=== PATIENT | male | born 1975 | race Hispanic/Latino ===

== ENCOUNTER 2016-06-11 00:05 | Emergency (ER) | payer OTHER ==
[2016-06-11] MEDS ORDERED: Tetracaine 0.5% Ophth 2 ML BOTTLE OD ONE (00:36)
[2016-06-11] MEDS ORDERED: Fluorescein 1 mg Ophthalmic Strip OD ONE (00:36)
[2016-06-11] MEDS ORDERED: Tetracaine 0.5% Ophth (OR ONLY) ONE (00:44)
[2016-06-11] MEDS ORDERED: Fluorescein 1 mg Ophthalmic Strip ONE ×2 (00:44→00:45)
--- NOTE | 2016-06-11 01:51 | C.PDOC ---
History Of Present Illness 40 year male presents to the ED with complaints of his right eye burning beginning 14 hours prior. Patient states his cell phone case cracked while texting and glass shards went onto his fingers and he rubbed his eyes. Patient denies any nausea, vomiting, or any other complaints at this time. Time Seen by Provider: 06/11/16 00:18 Chief Complaint (Nursing): Eye Problem History Per: Patient History/Exam Limitations: no limitations Onset/Duration Of Symptoms: Hrs Current Symptoms Are (Timing): Still Present Quality: Burning Past Medical History Vital Signs: Last Vital Signs Temp 98 F 06/11/16 01:58 Pulse 90 06/11/16 01:58 Resp 20 06/11/16 01:58 BP 109/69 06/11/16 01:58 Pulse Ox 100 06/11/16 04:55 - Medical History PMH: Diabetes - [facility] Procedures OTHER MISC PROCEDURE (12/21/99) TETANUS TOXOID ADMINIST (12/16/06) Family History: States: Unknown Family Hx - Social History Hx Tobacco Use: Yes Hx Alcohol Use: Yes Hx Substance Use: Yes - Immunization History Hx Tetanus Toxoid Vaccination: No Hx Influenza Vaccination: No Hx Pneumococcal Vaccination: No Review Of Systems Constitutional: Negative for: Fever, Chills, Sweats Eyes: Positive for: Pain. Negative for: Vision Change Cardiovascular: Negative for: Chest Pain Respiratory: Negative for: Cough, Shortness of Breath Gastrointestinal: Negative for: Nausea, Vomiting, Abdominal Pain, Diarrhea Neurological: Negative for: Weakness, Numbness, Dizziness Physical Exam - Physical Exam Appears: Non-toxic, No Acute Distress Skin: Warm, Dry Head: Atraumatic, Normacephalic Eye(s): bilateral: PERRL, EOMI, Other (Fluroescence exam negative for abrasions. Mild conjunctival injection to the right eye) Oral Mucosa: Moist Neck: Normal ROM, Supple Extremity: Normal ROM, No Tenderness Neurological/Psych: Oriented x3, Normal Speech, Normal Cranial Nerves, Normal Motor, Normal Sensation Gait: Steady ED Course And Treatment O2 Sat by Pulse Oximetry: 100 (on RA) Pulse Ox Interpretation: Normal Medical Decision Making Medical Decision Making: No foreign body seen on lid eversion of the eyes and fluoroscein test was negative for uptake. This is most likely eye irritation from rubbing the eyes. Disposition - Disposition Referrals: Ambrose Ashley MD [Staff Provider] - Disposition: HOME/ ROUTINE Disposition Time: 01:50 Condition: GOOD Additional Instructions: Follow up with the medical doctor within 1-2 days. Return if worsened. Prescriptions: Moxifloxacin HCl [Vigamox 3 ml] 1 drop OD TID #1 dimple Instructions: Corneal Abrasion (ED) - Clinical Impression Clinical Impression: Pain in eye, Eye irritation - Scribe Statement The provider has reviewed the documentation as recorded by the Scribluis Albert All medical record entries made by the Peteibluis were at my direction and personally dictated by me. I have reviewed the chart and agree that the record accurately reflects my personal performance of the history, physical exam, medical decision making, and the department course for this patient. I have also personally directed, reviewed, and agree with the discharge instructions and disposition.
[2016-06-11 01:59] VITALS: BP 109/69; PULSE 90; RESP 20; TEMP 98
[2016-06-11 04:55] VITALS: O2SAT 100
== END 2016-06-11 01:59 | disposition home or self-care (01) ==
LOC: C.ER 00:05
DX: H57.8 Other specified disorders of eye and adnexa (principal); H57.11 Ocular pain, right eye

== ENCOUNTER 2016-06-22 04:48 | Emergency (ER) | payer OTHER ==
[2016-06-22 05:21] VITALS: BMI 33.5
[2016-06-22 05:28] VITALS: TEMP 98.2
[2016-06-22] MEDS ORDERED: DiphenhydrAMINE 50 mg/ml Inj IVP STA (05:42)
[2016-06-22] MEDS ORDERED: Sodium Chloride 0.9% 100 ML ONE (05:51)
[2016-06-22] MEDS ORDERED: DiphenhydrAMINE 50 mg/ml Inj ONE (05:51)
--- NOTE | 2016-06-22 06:23 | C.PDOC ---
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 Pt was seen at [facility] on 06/20 and had a full workup incl Head CT with normal results. Pt was dc home on meclizine but said Rx is not ready till today for pick so he has not take anything for headache and dizziness. Pt denies nausea, vomiting, neck pain, fever , recent travel or sick cotacts Time Seen by Provider: 06/22/16 05:25 Chief Complaint (Nursing): Headache History Per: Patient History/Exam Limitations: no limitations Current Symptoms Are (Timing): Still Present Severity: Moderate Quality: Tightness Preceeding Symptoms: None Associated Symptoms: Photophobia Recent travel outside of the [place]: No Past Medical History Vital Signs: Last Vital Signs Temp 98.2 F 06/22/16 05:23 Pulse 84 06/22/16 05:23 Resp 20 06/22/16 05:23 BP 124/79 06/22/16 05:23 Pulse Ox 97 06/22/16 06:34 - Medical History PMH: Diabetes (type II) Surgical History: No Surg Hx - [facility] Procedures OTHER MISC PROCEDURE (12/21/99) TETANUS TOXOID ADMINIST (12/16/06) Family History: States: Unknown Family Hx - Social History Hx Tobacco Use: Yes Hx Alcohol Use: Yes Hx Substance Use: Yes - Immunization History Hx Tetanus Toxoid Vaccination: No Hx Influenza Vaccination: No Hx Pneumococcal Vaccination: No Review Of Systems Constitutional: Negative for: Fever Eyes: Negative for: Vision Change ENT: Negative for: Nose Congestion Gastrointestinal: Negative for: Vomiting Musculoskeletal: Negative for: Neck Pain Neurological: Positive for: Headache, Dizziness. Negative for: Weakness, Numbness Physical Exam - Physical Exam Appears: Well, No Acute Distress Head: Atraumatic Eye(s): bilateral: Normal Inspection, PERRL, EOMI Throat: Normal, No Erythema Neck: Normal, No Midline Cervical Tenderness, Supple Cardiovascular: Rhythm Regular, No Murmur Respiratory: Normal Breath Sounds, No Rhonchi, No Wheezing Gastrointestinal/Abdominal: Normal Exam Extremity: Normal ROM Extremity: Bilateral: Atraumatic Neurological/Psych: Oriented x3, Normal Speech, Normal Motor, Normal Sensation Gait: Steady ED Course And Treatment O2 Sat by Pulse Oximetry: 97 Disposition - Disposition Disposition Time: 06:49 Condition: STABLE Additional Instructions: Continue prescribed meds Follow up in clinic Return to ER if worse Return to ER if worse Prescriptions: Ibuprofen [Motrin] 600 mg PO Q6H #30 tab Forms: Work Excuse - Clinical Impression Clinical Impression: Headache, Vertigo
[2016-06-22 07:15] VITALS: BP 106/78; PULSE 72; RESP 18; O2SAT 98
== END 2016-06-22 07:05 | disposition home or self-care (01) ==
LOC: C.ER 04:48
DX: R51 Headache (principal); R42 Dizziness and giddiness
CPT/HCPCS: 96374; 96375; 99284; J1200; J1885; J2765

== ENCOUNTER 2016-06-30 15:22 | Emergency (ER) | payer OTHER ==
[2016-06-30 15:22] VITALS: BMI 33.5
[2016-06-30 15:32] VITALS: RESP 18; O2SAT 97
[2016-06-30] MEDS ORDERED: Sodium Chloride 0.9% 500 ML IV ONE ×2 (15:56→16:02)
--- NOTE | 2016-06-30 15:56 | C.PDOC ---
History Of Present Illness 40 year old patient, with a past medical history of diabetes, presents to the ED complaining of intermittent headache for the past 4 weeks. Patient states the pain is throbbing, frontal and non-radiating. He has an associated symptom of occasional dizziness. Patient was seen here and at [facility] recently. She reports he finished her Meclizine, but the headache continued. Patient denies fever, vision change, numbness, or weakness. Time Seen by Provider: 06/30/16 15:56 Chief Complaint (Nursing): Headache History Per: Patient History/Exam Limitations: no limitations Onset/Duration Of Symptoms: Intermittent Episodes (4 weeks) Current Symptoms Are (Timing): Still Present Severity: Mild Pain Scale Rating Of: 3 Quality: "Pain", Other (throbbing) Preceeding Symptoms: None Associated Symptoms: Other (dizziness) Recent travel outside of the [place]: No Past Medical History Reviewed: Historical Data, Nursing Documentation, Vital Signs Vital Signs: Last Vital Signs Temp 98.2 F 06/30/16 17:47 Pulse 71 06/30/16 17:47 Resp 18 06/30/16 17:47 BP 124/72 06/30/16 17:47 Pulse Ox 97 06/30/16 20:43 - Medical History PMH: Diabetes (type II) - [facility] Procedures OTHER MISC PROCEDURE (12/21/99) TETANUS TOXOID ADMINIST (12/16/06) Family History: States: Unknown Family Hx - Social History Hx Tobacco Use: Yes Hx Alcohol Use: Yes Hx Substance Use: Yes (marijuana use, last use 06/19/2016) - Immunization History Hx Tetanus Toxoid Vaccination: No Hx Influenza Vaccination: No Hx Pneumococcal Vaccination: No Review Of Systems Except As Marked, All Systems Reviewed And Found Negative. Constitutional: Negative for: Fever Eyes: Negative for: Vision Change Neurological: Positive for: Headache, Dizziness. Negative for: Weakness, Numbness Physical Exam - Physical Exam Appears: Non-toxic, No Acute Distress Skin: Warm, Dry Head: Atraumatic, Normacephalic Eye(s): bilateral: Normal Inspection, EOMI Ear(s): Bilateral: Normal Nose: Normal Oral Mucosa: Moist Throat: Normal Neck: Normal ROM, Supple Chest: Symmetrical Cardiovascular: Rhythm Regular Respiratory: No Accessory Muscle Use Back: Normal Inspection, No CVA Tenderness, No Vertebral Tenderness Extremity: Normal ROM Neurological/Psych: Oriented x3, Normal Speech, Normal Cognition, Normal Cranial Nerves, No Cerebellar Signs, Normal Motor, Normal Sensation Gait: Steady ED Course And Treatment O2 Sat by Pulse Oximetry: 97 (room air) Pulse Ox Interpretation: Normal Medical Decision Making Medical Decision Making: Impression: 40 y/o male with intermittent headaches Plan: * Reglan * IV fluids * Toradol * Reassess and disposition Prior records reviewed patient was seen multiple times in ED most recent 06/22 for headache and dizziness,treated and discharged. Patient was seen at [facility] on 06/20 patient complete workup including labs and Head CT with normal results. Patient treated in ED with IV fluids, Toradol and Reglan. Upon re-evaluation patient is resting comfortably in no acute distress. Patient reports improvement of symptoms. Patient given follow up instructions for the clinic. Instructed to return to ER if symptoms worsen or new symptoms arise. Disposition Counseled Patient/Family Regarding: Need For Followup, Rx Given - Disposition Referrals: [facility] [Outside] [facility] [Outside] Disposition: HOME/ ROUTINE Disposition Time: 17:15 Condition: IMPROVED Additional Instructions: Follow up with the clinic in 2-5 days for further evaluation. Take medications as prescribed. Return to the emergency department at any time if symptoms persist or worsen. You may call private duty aide service for any assistance [phone]. 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 - Scribe Statement The provider has reviewed the documentation as recorded by the Scribe Lacey Razo All medical record entries made by the Scribe were at my direction and personally dictated by me. I have reviewed the chart and agree that the record accurately reflects my personal performance of the history, physical exam, medical decision making, and the department course for this patient. I have also personally directed, reviewed, and agree with the discharge instructions and disposition.
[2016-06-30 17:53] VITALS: BP 124/72; PULSE 71; TEMP 98.2
== END 2016-06-30 17:54 | disposition home or self-care (01) ==
LOC: C.ER 15:22
DX: G43.909 Migraine, unspecified, not intractable, without status migrainosus (principal)
CPT/HCPCS: 96374; 96375; 99284; J1885; J2765; J7040

== ENCOUNTER 2016-07-28 14:30 | Emergency (ER) | payer OTHER ==
[2016-07-28 14:30] VITALS: BMI 33.5
[2016-07-28 14:50] VITALS: RESP 20
--- NOTE | 2016-07-28 15:33 | C.PDOC ---
History Of Present Illness 41 y/o male presents to the ED with complains of productive cough and SOB x2 days. 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 Pt denies headache, vomiting, fever, chills, chest pain, or any other complaints. No other drug use. Cigarette smoker. Time Seen by Provider: 07/28/16 14:34 Chief Complaint (Nursing): Substance Abuse History Per: Patient History/Exam Limitations: no limitations Suicide/Self Injury Attempted (Context): None Modifying Factor(s): Marijuana Severity: Mild Involuntary Hold By: None Recent travel outside of the [place]: No Past Medical History Reviewed: Historical Data, Nursing Documentation, Vital Signs Vital Signs: Last Vital Signs Temp 97.8 F 07/28/16 14:46 Pulse 101 H 07/28/16 14:46 Resp 20 07/28/16 14:46 BP 116/70 07/28/16 14:46 Pulse Ox 93 L 07/28/16 16:19 - Medical History PMH: Diabetes (type II) - [facility] Procedures OTHER MISC PROCEDURE (12/21/99) TETANUS TOXOID ADMINIST (12/16/06) Family History: States: Unknown Family Hx - Social History Hx Tobacco Use: Yes Hx Alcohol Use: Yes Hx Substance Use: Yes (marijuana use, last use 06/19/2016) - Immunization History Hx Tetanus Toxoid Vaccination: No Hx Influenza Vaccination: No Hx Pneumococcal Vaccination: No Review Of Systems Except As Marked, All Systems Reviewed And Found Negative. Constitutional: Negative for: Fever Respiratory: Positive for: Cough, Shortness of Breath Gastrointestinal: Negative for: Nausea, Vomiting Neurological: Positive for: Other (syncope). Negative for: Headache Physical Exam - Physical Exam Appears: Non-toxic, No Acute Distress Skin: Warm, Dry, No Rash Head: Atraumatic, Normacephalic Neck: Normal ROM, Midline Cervical Tenderness, No Paracervical Tenderness Chest: Symmetrical Cardiovascular: Rhythm Regular, No Murmur Respiratory: No Rales, No Rhonchi, Wheezing (diffuse) Gastrointestinal/Abdominal: Soft, No Tenderness Extremity: Bilateral: Atraumatic Neurological/Psych: Oriented x3, Normal Speech ED Course And Treatment - Laboratory Results Result Diagrams: 07/28/16 16:10 07/28/16 16:10 ECG: Interpreted By Me, Viewed By Me ECG Rhythm: Sinus Rhythm Interpretation Of ECG: normal axis, no acute ischemia Rate From EC (BPM) O2 Sat by Pulse Oximetry: 93 (room air) Pulse Ox Interpretation: Normal Medical Decision Making Medical Decision Makin pt sleeping no distress. upon waking reports feeling better. on exam wheezing significantly improved. disc w pt results, plan for rx, rtr. HISTORY: sob cough COMPARISON: No prior. FINDINGS: LUNGS: No active pulmonary disease. PLEURA: No significant pleural effusion identified, no pneumothorax apparent. CARDIOVASCULAR: Normal. OSSEOUS STRUCTURES: No significant abnormalities. VISUALIZED UPPER ABDOMEN: Normal. OTHER FINDINGS: None. IMPRESSION: No active disease. Disposition - Disposition Disposition: HOME/ ROUTINE Disposition Time: 17:54 Condition: IMPROVED - Clinical Impression Clinical Impression: Drug abuse, Bronchitis - Scribe Statement The provider has reviewed the documentation as recorded by the Earl Gallagher Provider Attestation: All medical record entries made by the Earl were at my direction and personally dictated by me. I have reviewed the chart and agree that the record accurately reflects my personal performance of the history, physical exam, medical decision making, and the department course for this patient. I have also personally directed, reviewed, and agree with the discharge instructions and disposition.
--- NOTE | 2016-07-28 15:56 | CT ---
PROCEDURE: CT HEAD WITHOUT CONTRAST. HISTORY: fall pain COMPARISON: 12/28/2014 TECHNIQUE: Axial computed tomography images were obtained through the head/brain without intravenous contrast. Radiation dose: Total exam DLP = 948.16 mGy-cm. This CT exam was performed using one or more of the following dose reduction techniques: Automated exposure control, adjustment of the mA and/or kV according to patient size, and/or use of iterative reconstruction technique. FINDINGS: HEMORRHAGE: No intracranial hemorrhage. BRAIN: No mass effect or edema. No atrophy or chronic microvascular ischemic changes. VENTRICLES: Unremarkable. No hydrocephalus. CALVARIUM: Unremarkable. PARANASAL SINUSES: Unremarkable as visualized. No significant inflammatory changes. MASTOID AIR CELLS: Unremarkable as visualized. No inflammatory changes. OTHER FINDINGS: None. IMPRESSION: No intracranial hemorrhage. Unremarkable CT head examination. .
--- NOTE | 2016-07-28 16:00 | CT ---
PROCEDURE: CT Cervical Spine without contrast HISTORY: <fall pain> COMPARISON: None available. TECHNIQUE: Axial computed tomography images were obtained of the cervical spine without the use of intravenous contrast. Coronal and sagittal reformatted images were created and reviewed. Radiation dose: Total exam DLP = 535.37 mGy-cm. This CT exam was performed using one or more of the following dose reduction techniques: Automated exposure control, adjustment of the mA and/or kV according to patient size, and/or use of iterative reconstruction technique. FINDINGS: VERTEBRAE: The vertebral bodies are maintained in height. The transverse processes and posterior elements appear intact. The atlantoaxial articulation and odontoid process are intact. Normal vertebral alignment is maintained. There is mild straightening of the normal lordotic curvature of the cervical spine indicating possible muscular spasm. DISCS/SPINAL CANAL/NEURAL FORAMINA: Degenerative disc disease is noted at C5-6 with mild disc space narrowing anterior and posterior osteophytes. The remaining intervertebral disc spaces are maintained in height. PARASPINAL SOFT TISSUES: Unremarkable. OTHER FINDINGS: None. IMPRESSION: No fracture/ dislocation. Possible muscular spasm. Degenerative disc disease at C5-6.
[2016-07-28] MEDS ORDERED: Albuterol-Ipratrop 3 mg / 0.5 (3 ml) UD ONE (16:02)
[2016-07-28] MEDS: Albuterol-Ipratrop 3 mg / 0.5 (3 ml) UD IH SCH ×2 (16:14→16:16)
[2016-07-28 16:21] LABS: BASO # 0.1 K/uL (0.0-0.2); BASO % 0.4 % (0.0-2.0); EOS % 0.3 % (0.0-4.0); HEMATOCRIT 44.9 % (35.0-51.0); LYMPH # 1.5 K/uL (1.0-4.3); LYMPH % 12.2 % (20.0-40.0); MEAN CELL VOLUME 94.4 fL (80.0-94.0); MEAN CORPUSCULAR HEMOGLOBIN 32.8 pg (27.0-31.0); MEAN CORPUSCULAR HGB CONC 34.7 g/dL (33.0-37.0); MONO # 1.2 K/uL (0.0-0.8); MONO % 9.6 % (0.0-10.0); RED CELL DISTRIBUTION WIDTH 12.9 % (11.5-14.5); WHITE BLOOD COUNT 12.6 K/uL (4.8-10.8)
[2016-07-28] MEDS ORDERED: MethylPREDNISolone 40 mg Vial ONE (16:26)
[2016-07-28 16:29] LABS: CHLORIDE 97 mmol/L (98-107)
[2016-07-28 16:30] LABS: POTASSIUM 3.6 mmol/L (3.6-5.2); SODIUM 137 mmol/L (132-148)
[2016-07-28 16:32] LABS: ALB/GLOB RATIO 1.3 (1.0-2.1); ALKALINE PHOSPHATASE 78 U/L (38-126); ALT/SGPT 22 U/L (21-72); AST/SGOT 21 U/L (17-59); BLOOD UREA NITROGEN 7 mg/dL (9-20); CARBON DIOXIDE 28 mmol/L (22-30); GFR AFRICAN-AMERICAN > 60; TOTAL PROTEIN 7.3 g/dL (6.3-8.3)
[2016-07-28 16:33] LABS: CALCIUM 8.5 mg/dl (8.6-10.4); GLUCOSE,RANDOM 173 mg/dL (75-110)
--- NOTE | 2016-07-28 16:42 | RAD ---
HISTORY: sob cough COMPARISON: No prior. FINDINGS: LUNGS: No active pulmonary disease. PLEURA: No significant pleural effusion identified, no pneumothorax apparent. CARDIOVASCULAR: Normal. OSSEOUS STRUCTURES: No significant abnormalities. VISUALIZED UPPER ABDOMEN: Normal. OTHER FINDINGS: None. IMPRESSION: No active disease.
[2016-07-28 18:06] VITALS: BP 124/77; PULSE 98; TEMP 98.6; O2SAT 96
--- NOTE | 2016-08-01 12:48 | CARD ---
APPROVED REPORT EKG Measurement Heart [id number] <Conclusion> Normal sinus rhythm Cannot rule out Anterior infarct, age undetermined Abnormal ECG
== END 2016-07-28 18:15 | disposition home or self-care (01) ==
LOC: C.ER 14:30
DX: F12.10 Cannabis abuse, uncomplicated (principal); J40 Bronchitis, not specified as acute or chronic; Z72.0 Tobacco use
CPT/HCPCS: 70450; 71010; 72125; 80053; 80324; 80345; 80346; 80349; 80353; 80358; 80361; 82948; 83992; 84484; 85025; 93005; 94640; 96374; 99283; J2930

== ENCOUNTER 2016-07-30 19:12 | Inpatient (IN) | payer OTHER ==
[2016-07-30 19:13] VITALS: BMI 33.5
[2016-07-30] MEDS ORDERED: Albuterol-Ipratrop 3 mg / 0.5 (3 ml) UD ONE ×2 (19:26→19:52)
--- NOTE | 2016-07-30 19:35 | C.PDOC ---
History Of Present Illness Patient is a 41 y/o male that presents to the ED for evaluation of shortness of breath. Pt states he was admitted at [facility], and was discharged. Otherwise, denies any cough, fever, chills, nausea, vomiting, chest pain, or any other associated symptoms at this time. Time Seen by Provider: 07/30/16 19:34 Chief Complaint (Nursing): Respiratory Distress History Per: Patient History/Exam Limitations: no limitations Onset/Duration Of Symptoms: Days Current Symptoms Are (Timing): Still Present Severity: None Pain Scale Rating Of: 0 Associated Symptoms: denies: Fever, Chills, Sweating, Chest Pain, Bloody Cough, Productive Cough, Heart Racing, Leg/Calf Pain, Ankle/Leg Swelling, Dizziness, Light-headedness, Anxiety, Tingling In Hands Or Face, Musle Spasms In Hands Or Feet Reports Recently: Hospitalized ([facility]) Recent travel outside of the [place]: No Past Medical History Reviewed: Historical Data, Nursing Documentation, Vital Signs Vital Signs: Last Vital Signs Temp 98.1 F 07/30/16 19:21 Pulse 113 H 07/30/16 20:54 Resp 24 07/30/16 20:55 BP 146/90 07/30/16 20:54 Pulse Ox 94 L 07/30/16 20:55 - Medical History PMH: Diabetes (type II) - [facility] Procedures OTHER MISC PROCEDURE (12/21/99) TETANUS TOXOID ADMINIST (12/16/06) Family History: States: No Known Family Hx - Social History Hx Tobacco Use: Yes Hx Alcohol Use: Yes Hx Substance Use: Yes (marijuana use, last use 06/19/2016) - Immunization History Hx Tetanus Toxoid Vaccination: No Hx Influenza Vaccination: No Hx Pneumococcal Vaccination: No Review Of Systems Constitutional: Negative for: Fever, Chills Cardiovascular: Negative for: Chest Pain, Palpitations, Light Headedness Respiratory: Positive for: Shortness of Breath. Negative for: Cough, Sputum, Wheezing Gastrointestinal: Negative for: Nausea, Vomiting, Abdominal Pain Skin: Negative for: Rash Neurological: Negative for: Weakness, Numbness, Headache, Dizziness Physical Exam - Physical Exam Appears: Non-toxic, No Acute Distress Skin: Warm, Dry, No Rash Head: Atraumatic, Normacephalic Neck: Normal ROM, Supple Chest: Symmetrical, No Tenderness Cardiovascular: Rhythm Regular (tachycardic) Respiratory: No Rales, No Rhonchi, Wheezing (scattered), Other (speaking in complete sentences) Gastrointestinal/Abdominal: Bowel Sounds, Soft, No Tenderness Neurological/Psych: Oriented x3, Other (awake, alert, no focal deficits) ED Course And Treatment - Laboratory Results Result Diagrams: 07/30/16 19:47 07/30/16 19:47 ECG: Interpreted By Me, Viewed By Me ECG Rhythm: Sinus Rhythm (112), Nonspecific Changes O2 Sat by Pulse Oximetry: 96 (on RA) Pulse Ox Interpretation: Normal - Radiology CXR: Interpreted by Me, Viewed By Me CXR Interpretation: Yes: Other (unchanged from 07/28/16). No: Infiltrates, Fracture, Pnemothorax Progress Note: Labs, CXR, EKG ordered and reviewed. Patient was given IV fluids , Solumedrol, and Albuterol treatment in the ER. Critical Care Time - Critical Care Note Total Time (in mins): 30 Documented critical care: time excludes all time spent performing seperately billable procedures. Disposition Discussed With DrManasa: Adrien Nesbitt Comment: accepted the pt on his service and took over the care at 9:40 PM Doctor Will See Patient In The: ED Counseled Patient/Family Regarding: Studies Performed, Diagnosis - Disposition Disposition: HOSPITALIZED Disposition Time: 19:35 Condition: FAIR - POA Present On Arrival: Poor Glycemic Control - Clinical Impression Clinical Impression: Exacerbation of asthma - Scribe Statement The provider has reviewed the documentation as recorded by the Earl Razo Provider Attestation: All medical record entries made by the Earl were at my direction and personally dictated by me. I have reviewed the chart and agree that the record accurately reflects my personal performance of the history, physical exam, medical decision making, and the department course for this patient. I have also personally directed, reviewed, and agree with the discharge instructions and disposition. Decision To Admit - Pt Status Changed To: Hospital Disposition Of: Inpatient - Admit Certification Admit to Inpatient:: After my assessment, the patient will require hospitalization for at least two midnights. This is because of the severity of symptoms shown, intensity of services needed, and/or the medical risk in this patient being treated as an outpatient. - InPatient: Physician Admission Certification: I certify that this patient requires 2 or more midnights of care for the following reason:: After my assessment, the patient will require hospitalization for at least two midnights. This is because of the severity of symptoms shown, intensity of services needed, and/or the medical risk in this patient being treated as an outpatient. - . Bed Request Type: Regular Admitting Physician: Adrien Nesbitt Patient Diagnosis: Exacerbation of asthma
[2016-07-30] MEDS ORDERED: Sodium Chloride 0.9% 1,000 ML IV ONE (19:39)
[2016-07-30 19:50] LABS: BASO % 0.3 % (0.0-2.0); HEMATOCRIT 44.5 % (35.0-51.0); LYMPH # 0.8 K/uL (1.0-4.3); LYMPH % 6.7 % (20.0-40.0); MEAN CELL VOLUME 95.7 fL (80.0-94.0); MEAN CORPUSCULAR HEMOGLOBIN 32.9 pg (27.0-31.0); MEAN CORPUSCULAR HGB CONC 34.4 g/dL (33.0-37.0); MEAN PLATELET VOLUME 7.9 fL (7.2-11.7); MONO # 0.9 K/uL (0.0-0.8); MONO % 7.4 % (0.0-10.0); NRBC % 0.1 % (0.0-2.0); PLATELET COUNT 226 K/uL (130-400); RED CELL DISTRIBUTION WIDTH 13.3 % (11.5-14.5); WHITE BLOOD COUNT 12.4 K/uL (4.8-10.8)
[2016-07-30] MEDS ORDERED: Sodium Chloride 0.9% 1,000 ML ONE (19:52)
[2016-07-30 19:58] LABS: CHLORIDE 99 mmol/L (98-107); POTASSIUM 4.2 mmol/L (3.6-5.2); SODIUM 137 mmol/L (132-148)
[2016-07-30 20:00] LABS: ALB/GLOB RATIO 1.4 (1.0-2.1); AST/SGOT 16 U/L (17-59); BILIRUBIN,TOTAL 0.7 mg/dL (0.2-1.3); CARBON DIOXIDE 21 mmol/L (22-30); GFR AFRICAN-AMERICAN > 60; TOTAL PROTEIN 7.4 g/dL (6.3-8.3)
[2016-07-30 20:01] LABS: ALKALINE PHOSPHATASE 82 U/L (38-126); ALT/SGPT 18 U/L (21-72); BLOOD UREA NITROGEN 15 mg/dL (9-20); GLUCOSE,RANDOM 351 mg/dL (75-110); MAGNESIUM 2.5 mg/dL (1.6-2.3)
[2016-07-30 20:07] LABS: INR 1.1
[2016-07-30 20:08] LABS: URINE BACTERIA RARE (<OCC); URINE BILIRUBIN NEGATIVE (NEGATIVE); URINE BLOOD NEGATIVE (NEGATIVE); URINE COLOR Straw (YELLOW); URINE GLUCOSE (UA) 3+ mg/dL (Normal); URINE KETONE TRACE mg/dL (NEGATIVE); URINE LEUKOCYTE ESTERASE NEG Leu/uL (Negative); URINE PROTEIN NEGATIVE (NEGATIVE); URINE UROBILINOGEN NORMAL mg/dL (0.2-1.0); WBC URINE 1 /hpf (0-5)
[2016-07-30] MEDS: Albuterol-Ipratrop 3 mg / 0.5 (3 ml) UD IH SCH ×3 (20:10→20:32)
[2016-07-30 20:13] LABS: DRAW SITE RRA
[2016-07-30 20:23] LABS: NEUTROPHIL 83 % (50-75); TOTAL CELLS COUNTED 100
[2016-07-30] MEDS ORDERED: Enoxaparin 40 mg Syringe SC STA (21:39)
--- NOTE | 2016-07-30 21:50 | CP.PCM.HP ---
<John Murdock - Last Filed: 07/31/16 03:14> History of Present Illness - History of Present Illness History of Present Illness: CC: "difficulty breathing and Headache" 41 M with PMH of DM, headaches and vertigo presents to [facility] ED with complaint of difficulty breathing and Headache. Patient stated that he was admitted for the same complaint to [facility] earlier today before being discharge 3 hours later. Patient states that he was discharged because he did not have any insurance. Patient has been having headaches for last 2 months while the SOB started on last Sunday. Patient denies ever having these symptoms prior to then. Patient has also had cough since sunday. He feels like he has phlegm to cough up but cannot expel it. He rates the headaches as 10/10 in severity at times but currently 5-6/10. He describes the headache as constant and aching in the occipital region. He also reports that he has sharp pain in the temporal regions bilaterally. He reports photophobia, blurry vision, and aura occasionally. He states he was diagnosed with complex migraines previously. Patient had MRI done at [facility] today but did not get the results or discharge paperwork when he was sent home. Admits dizziness/lightheadedness, vertigo, near -syncope. Denies fever/chills, cp, abd pain, n/v/d, constipation, incontinence, urinary symptoms, seizures. PMD: denies PMH: Headaches, vertigo, DM Meds: Tylenol occasionally for headaches Allergy: NKDA PSH: Denies Hosp: [facility] last night/today for SOB and headaches FH: DM, CA, vertigo Social: smokes 1/2 to 1 pack per day for 20 years, Drinks 2 16 oz beers twice per week, smokes marijuana occasionally Present on Admission - Present on Admission Any Indicators Present on Admission: Yes History of DVT/PE: No History of Uncontrolled Diabetes: Yes Urinary Catheter: No Decubitus Ulcer Present: No Review of Systems - Constitutional Constitutional: Fatigue. absent: Chills, Fever, Weakness - EENT Eyes: Blurred Vision, Photophobia. absent: Pain Ears: Dizziness. absent: Decreased Hearing, Ear Discharge, Ear Pain, Tinnitus Nose/Mouth/Throat: absent: Change in Voice, Dysphagia, Hoarsness, Mouth Pain, Neck Pain, Neck Mass - Cardiovascular Cardiovascular: Dyspnea, Dyspnea on Exertion, Lightheadedness. absent: Chest Pain, Chest Pain at Rest, Chest Pain with Activity - Respiratory Respiratory: Cough, Dyspnea, Dyspnea on Exertion, Wheezing. absent: Hemoptysis - Gastrointestinal Gastrointestinal: absent: Abdominal Pain, Constipation, Diarrhea, Fecal Incontinence, Nausea, Vomiting - Genitourinary Genitourinary: absent: Change in Urinary Stream, Difficulty Urinating, Dysuria, Urinary Incontinence - Musculoskeletal Musculoskeletal: absent: Arthralgias, Myalgias, Numbness, Stiffness, Tingling - Integumentary Integumentary: absent: Changing Lesions, New Lesions, Wounds - Neurological Neurological: Dizziness, Headaches. absent: Numbness, Loss of Vision, Syncope, Tingling, Weakness - Psychiatric Psychiatric: absent: Anxiety, Depression, Homicidal Ideation, Suicidal Ideation - Endocrine Endocrine: absent: Palpitations, Polydipsia, Polyphagia, Polyuria - Hematologic/Lymphatic Hematologic: absent: Easy Bleeding, Easy Bruising, Lymphadenopathy Past Patient History - Infectious Disease Hx of Infectious Diseases: None - Past Social History Smoking Status: Heavy Smoker > 10 Cigarettes Daily - NEUROLOGICAL Hx Vertigo: Yes (takes antivert but med ran out) - ENDOCRINE/METABOLIC Hx Endocrine Disorders: Yes Hx Diabetes Mellitus Type 2: Yes - PSYCHIATRIC Hx Substance Use: Yes (marijuana use, last use 06/19/2016) - SURGICAL HISTORY Hx Surgeries: No - ANESTHESIA Hx Anesthesia: No Hx Anesthesia Reactions: No Meds Allergies/Adverse Reactions: Allergies Allergy/AdvReac Type Severity Reaction Status Date / Time No Known Allergies Allergy Verified 07/30/16 19:24 Physical Exam - Constitutional Appears: No Acute Distress - Head Exam Head Exam: ATRAUMATIC, NORMOCEPHALIC - Eye Exam Eye Exam: EOMI, Normal appearance Pupil Exam: PERRL - ENT Exam ENT Exam: Mucous Membranes Moist - Neck Exam Neck exam: Positive for: Normal Inspection - Respiratory Exam Respiratory Exam: Wheezes, NORMAL BREATHING PATTERN. absent: Accessory Muscle Use, Respiratory Distress - Cardiovascular Exam Cardiovascular Exam: Tachycardia, REGULAR RHYTHM, +S1, +S2 - GI/Abdominal Exam GI & Abdominal Exam: Normal Bowel Sounds, Soft. absent: Distended, Firm, Guarding, Rebound, Rigid, Tenderness - Extremities Exam Extremities exam: Positive for: normal capillary refill, pedal pulses present. Negative for: calf tenderness, pedal edema, tenderness - Back Exam Back exam: absent: CVA tenderness (L), CVA tenderness (R) - Neurological Exam Neurological exam: Alert, CN II-XII Intact, Oriented x3 - Psychiatric Exam Psychiatric exam: Normal Affect, Normal Mood - Skin Skin Exam: Dry, Intact, Normal Color, Warm Results - Vital Signs Recent Vital Signs: Last Vital Signs Temp 98.1 F 07/30/16 19:21 Pulse 113 H 07/30/16 20:54 Resp 24 07/30/16 20:55 BP 146/90 07/30/16 20:54 Pulse Ox 96 07/30/16 21:41 - Labs Result Diagrams: 07/30/16 19:47 07/30/16 19:47 Labs: Laboratory Results - last 24 hr 07/30/16 07/30/16 07/30/16 19:47 19:47 19:56 WBC 12.4 H RBC 4.65 Hgb 15.3 Hct 44.5 MCV 95.7 H MCH 32.9 H MCHC 34.4 RDW 13.3 Plt Count 226 MPV 7.9 Neut % (Auto) 85.6 H Lymph % (Auto) 6.7 L Lucas % (Auto) 7.4 Eos % (Auto) 0.0 Baso % (Auto) 0.3 Neut # 10.6 H Lymph # 0.8 L Lucas # 0.9 H Eos # 0.0 Baso # 0.0 Neutrophils % (Manual) 83 H Lymphocytes % (Manual) 9 L Monocytes % (Manual) 8 Platelet Estimate Normal PT 12.3 H INR 1.1 APTT 26 Puncture Site pCO2 pO2 HCO3 ABG pH ABG Total CO2 ABG O2 Saturation ABG Base Excess Zachary Test ABG Potassium A-a O2 Difference Respiratory Index Glucose Lactate Liter Flow FiO2 Crit Value Called To Crit Value Called By Crit Value Read Back Blood Gas Notified Time Sodium 137 Potassium 4.2 Chloride 99 Carbon Dioxide 21 L Anion Gap 21 H BUN 15 Creatinine 0.8 Est GFR ( Amer) > 60 Est GFR (Non-Af Amer) > 60 Random Glucose 351 H Calcium 9.0 Magnesium 2.5 H Total Bilirubin 0.7 AST 16 L D ALT 18 L Alkaline Phosphatase 82 Total Protein 7.4 Albumin 4.3 Globulin 3.1 Albumin/Globulin Ratio 1.4 Arterial Blood Potassium Urine Color Urine Clarity Urine pH Ur Specific Daykin Urine Protein Urine Glucose (UA) Urine Ketones Urine Blood Urine Nitrate Urine Bilirubin Urine Urobilinogen Ur Leukocyte Esterase Urine WBC (Auto) Ur Squamous Epith Cells Urine Bacteria Urine Opiates Screen Urine Methadone Screen Ur Barbiturates Screen Ur Phencyclidine Scrn Ur Amphetamines Screen U Benzodiazepines Scrn U Oth Cocaine Metabols U Cannabinoids Screen Alcohol, Quantitative 07/30/16 07/30/16 07/30/16 20:03 20:07 20:07 WBC RBC Hgb Hct MCV MCH MCHC RDW Plt Count MPV Neut % (Auto) Lymph % (Auto) Lucas % (Auto) Eos % (Auto) Baso % (Auto) Neut # Lymph # Lucas # Eos # Baso # Neutrophils % (Manual) Lymphocytes % (Manual) Monocytes % (Manual) Platelet Estimate PT INR APTT Puncture Site pCO2 pO2 HCO3 ABG pH ABG Total CO2 ABG O2 Saturation ABG Base Excess Zachary Test ABG Potassium A-a O2 Difference Respiratory Index Glucose Lactate Liter Flow FiO2 Crit Value Called To Crit Value Called By Crit Value Read Back Blood Gas Notified Time Sodium Potassium Chloride Carbon Dioxide Anion Gap BUN Creatinine Est GFR ( Amer) Est GFR (Non-Af Amer) Random Glucose Calcium Magnesium Total Bilirubin AST ALT Alkaline Phosphatase Total Protein Albumin Globulin Albumin/Globulin Ratio Arterial Blood Potassium Urine Color Straw Urine Clarity Clear Urine pH 6.0 Ur Specific Daykin 1.030 Urine Protein Negative Urine Glucose (UA) 3+ H Urine Ketones Trace Urine Blood Negative Urine Nitrate Negative Urine Bilirubin Negative Urine Urobilinogen Normal Ur Leukocyte Esterase Neg Urine WBC (Auto) 1 Ur Squamous Epith Cells < 1 Urine Bacteria Rare Urine Opiates Screen Negative Urine Methadone Screen Negative Ur Barbiturates Screen Negative Ur Phencyclidine Scrn Negative Ur Amphetamines Screen Negative U Benzodiazepines Scrn Negative U Oth Cocaine Metabols Negative U Cannabinoids Screen Positive Alcohol, Quantitative 36 H 07/30/16 20:08 WBC RBC Hgb Hct MCV MCH MCHC RDW Plt Count MPV Neut % (Auto) Lymph % (Auto) Lucas % (Auto) Eos % (Auto) Baso % (Auto) Neut # Lymph # Lucas # Eos # Baso # Neutrophils % (Manual) Lymphocytes % (Manual) Monocytes % (Manual) Platelet Estimate PT INR APTT Puncture Site Rra pCO2 33 L pO2 74 L HCO3 23.1 ABG pH 7.42 ABG Total CO2 22.4 ABG O2 Saturation 96.6 ABG Base Excess -2.3 L Zachary Test + ABG Potassium 3.7 A-a O2 Difference 34.0 Respiratory Index 0.5 Glucose 307 H Lactate 4.9 H* Liter Flow 0 FiO2 21.0 Crit Value Called To Carson cunningham Crit Value Called By Sky Crit Value Read Back Y Blood Gas Notified Time 2011 Sodium 140.0 Potassium Chloride 106.0 Carbon Dioxide Anion Gap BUN Creatinine Est GFR ( Amer) Est GFR (Non-Af Amer) Random Glucose Calcium Magnesium Total Bilirubin AST ALT Alkaline Phosphatase Total Protein Albumin Globulin Albumin/Globulin Ratio Arterial Blood Potassium 3.7 Urine Color Urine Clarity Urine pH Ur Specific Daykin Urine Protein Urine Glucose (UA) Urine Ketones Urine Blood Urine Nitrate Urine Bilirubin Urine Urobilinogen Ur Leukocyte Esterase Urine WBC (Auto) Ur Squamous Epith Cells Urine Bacteria Urine Opiates Screen Urine Methadone Screen Ur Barbiturates Screen Ur Phencyclidine Scrn Ur Amphetamines Screen U Benzodiazepines Scrn U Oth Cocaine Metabols U Cannabinoids Screen Alcohol, Quantitative Assessment & Plan - Assessment and Plan (Free Text) Plan: 1. Dyspnea likely secondary to Asthma vs COPD med/surg CXR D-dimer < 200 Duonebs RQ6H Solu-medrol 40 mg IVP Q8H 2. Headaches history of migraines Fioricet 1 tab PO Q4H PRN 3. DM Accuchecks ACHS ISS montior glucose 4. Prophylactic Measures Protonix 40 mg PO daily Lovenox 40 mg SC daily SCDs Zofran 4 mg IVP Q6H PRN <Adrien Nesbitt - Last Filed: 07/31/16 06:19> Results - Vital Signs Recent Vital Signs: Last Vital Signs Temp 98.1 F 07/30/16 23:30 Pulse 99 H 07/30/16 23:30 Resp 20 07/30/16 23:30 BP 126/67 07/30/16 23:30 Pulse Ox 95 07/30/16 23:30 - Labs Result Diagrams: 07/30/16 19:47 07/30/16 19:47 Labs: Laboratory Results - last 24 hr 07/30/16 21:46 D-Dimer, Quantitative < 200 Assessment & Plan - Date & Time Date: 07/31/16 (I have seen and examined the patient. I agree with the findings and plan of care as documented by Dr. Murdock. Patient with asthma exacerbation. Solumedrol, Duonebs, and oxygen as needed. Also with history of headaches. Symptomatic treatment. May be migraines. Monitor for acute changes.) Time: 06:17 Attending/Attestation - Attestation I have personally seen and examined this patient.: Yes I have fully participated in the care of the patient.: Yes I have reviewed all pertinent clinical information: Yes
[2016-07-30] MEDS ORDERED: Enoxaparin 100 mg Syringe SC STA (22:22)
[2016-07-30] MEDS: MethylPREDNISolone 40 mg Vial IVP SCH (22:34)
[2016-07-31] MEDS: Sodium Chloride 0.9% 1,000 ML IV SCH ×2 (00:07→10:58)
[2016-07-31] MEDS: Albuterol-Ipratrop 3 mg / 0.5 (3 ml) UD INH SCH ×5 (01:42→20:14)
[2016-07-31 01:55] VITALS: RESP 20
[2016-07-31] MEDS: Apap-Butalbital-Caffeine 325-50-40mg Tab PO PRN (05:25)
[2016-07-31] MEDS: MethylPREDNISolone 40 mg Vial IVP SCH ×3 (05:27→21:35)
[2016-07-31 07:33] LABS: BASO % 0.2 % (0.0-2.0); HEMATOCRIT 41.4 % (35.0-51.0); LYMPH # 0.9 K/uL (1.0-4.3); LYMPH % 8.2 % (20.0-40.0); MEAN CORPUSCULAR HEMOGLOBIN 33.1 pg (27.0-31.0); MEAN CORPUSCULAR HGB CONC 34.4 g/dL (33.0-37.0); MEAN PLATELET VOLUME 8.1 fL (7.2-11.7); MONO # 0.6 K/uL (0.0-0.8); MONO % 5.1 % (0.0-10.0); PLATELET COUNT 198 K/uL (130-400); RED CELL DISTRIBUTION WIDTH 13.1 % (11.5-14.5); WHITE BLOOD COUNT 10.9 K/uL (4.8-10.8)
[2016-07-31 07:46] LABS: CHLORIDE 102 mmol/L (98-107)
[2016-07-31 07:47] LABS: POTASSIUM 4.2 mmol/L (3.6-5.2); SODIUM 137 mmol/L (132-148)
[2016-07-31 07:49] LABS: ALB/GLOB RATIO 1.3 (1.0-2.1); ALKALINE PHOSPHATASE 80 U/L (38-126); AST/SGOT 15 U/L (17-59); BILIRUBIN,TOTAL 0.6 mg/dL (0.2-1.3); BLOOD UREA NITROGEN 12 mg/dL (9-20); CARBON DIOXIDE 25 mmol/L (22-30); GFR AFRICAN-AMERICAN > 60; TOTAL PROTEIN 6.4 g/dL (6.3-8.3)
[2016-07-31 07:50] LABS: ALT/SGPT 18 U/L (21-72); CALCIUM 8.7 mg/dl (8.6-10.4); GLUCOSE,RANDOM 305 mg/dL (75-110)
[2016-07-31 07:52] LABS: INR 1.1
[2016-07-31] MEDS: (Novolin R) Insulin Human Regular 100 units/ml vial SC SCH ×3 (08:12→17:35)
[2016-07-31 08:53] LABS: NEUTROPHIL 89 % (50-75); TOTAL CELLS COUNTED 100
--- NOTE | 2016-07-31 10:35 | RAD ---
PROCEDURE: CHEST RADIOGRAPH, 1 VIEW. Portable study 19:45. HISTORY: SOB COMPARISON: 07/28/2016. FINDINGS: LUNGS: Clear. PLEURA: No pneumothorax or pleural fluid seen. CARDIOVASCULAR: Normal. OSSEOUS STRUCTURES: No significant abnormalities. VISUALIZED UPPER ABDOMEN: Normal. OTHER FINDINGS: None. IMPRESSION: No active disease. No acute/significant interval changes.
[2016-07-31] MEDS: Pantoprazole 40 mg EC Tab PO SCH (10:58)
--- NOTE | 2016-07-31 12:37 | CP.PCM.PN ---
Subjective - Date & Time of Evaluation Date of Evaluation: 07/31/16 Time of Evaluation: 12:00 - Subjective Subjective: Patient was seen and examined by me. I reviewed the previous notes, lab work. Patient explains his breathing is somewhat better than before - and also his headache which maybe migraines did improve only somewhat when IV toradol was given. Patient tells me he has been at numerous hospitals and has had multiple CT of the head with and without IV contrast as well as MRI. He explains he does not know the results of these. He is able to walk and go to bathroom ok. Diet is ok, denied chest pain, denied palpitations, denied abdominal pain. Objective - Vital Signs/Intake and Output Vital Signs (last 24 hours): Temp Pulse Resp BP Pulse Ox 98.2 F 93 H 20 137/87 95 07/31/16 08:35 07/31/16 08:35 07/31/16 08:35 07/31/16 08:35 07/31/16 08:35 Intake and Output: 07/31/16 07/31/16 06:59 18:59 Intake Total 960 Balance 960 - Medications Medications: Current Medications Acetaminophen/Butalbital/Caffeine (Fioricet) 1 tab PO Q4 PRN PRN Reason: Headache Last Admin: 07/31/16 05:25 Dose: 1 tab Albuterol/Ipratropium (Duoneb 3 Mg/0.5 Mg (3 Ml) Ud) 3 ml INH RQ6 [facility] Last Admin: 07/31/16 11:23 Dose: 3 ml Enoxaparin Sodium (Lovenox) 40 mg SC DAILY [facility] Sodium Chloride (Sodium Chloride 0.9%) 1,000 mls @ 100 mls/hr IV .Q10H [facility] Last Admin: 07/31/16 10:58 Dose: 100 mls/hr Insulin Human Regular (Novolin R) 0 unit SC ACHS FELA PRN Reason: Protocol Last Admin: 07/31/16 12:03 Dose: 4 unit Methylprednisolone (Solu-Medrol) 40 mg IVP Q8H [facility] Last Admin: 07/31/16 05:31 Dose: Not Given Ondansetron HCl (Zofran Inj) 4 mg IVP Q6 PRN Pantoprazole Sodium (Protonix Ec Tab) 40 mg PO DAILY [facility] Last Admin: 07/31/16 10:58 Dose: 40 mg Pneumococcal Polyvalent Vaccine (Pneumovax 23 Vaccine) 0.5 ml IM .ONCE ONE Stop: 08/02/16 10:01 - Labs Labs: 07/31/16 07:08 07/31/16 07:08 PT 12.0 SECONDS (9.7-12.2) 07/31/16 07:08 INR 1.1 07/31/16 07:08 APTT 29 SECONDS (21-34) 07/31/16 07:08 Assessment and Plan - Assessment and Plan (Free Text) Plan: 1. Dyspnea 07/31: For now continue with IV soulmedrol - breathing is improved. The patient is positive for THC and this may also be complicating his breathing as well. likely secondary to Asthma vs COPD med/surg CXR D-dimer < 200 Duonebs RQ6H Solu-medrol 40 mg IVP Q8H 2. Headaches history of migraines 07/31: Will add sumitriptan PO to see if this helps Fioricet 1 tab PO Q4H PRN On IV solumedrol 3. DM Accuchecks ACHS ISS montior glucose 4. Prophylactic Measures Protonix 40 mg PO daily Lovenox 40 mg SC daily SCDs
[2016-08-01] MEDS: Apap-Butalbital-Caffeine 325-50-40mg Tab PO PRN ×2 (00:01→21:30)
[2016-08-01] MEDS: Albuterol-Ipratrop 3 mg / 0.5 (3 ml) UD INH SCH ×4 (01:22→20:19)
[2016-08-01] MEDS: MethylPREDNISolone 40 mg Vial IVP SCH ×3 (06:12→21:33)
[2016-08-01] MEDS: (Novolin R) Insulin Human Regular 100 units/ml vial SC SCH ×4 (07:46→21:26)
[2016-08-01 08:14] LABS: BASO % 0.3 % (0.0-2.0); LYMPH # 1.7 K/uL (1.0-4.3); LYMPH % 17.8 % (20.0-40.0); MEAN CELL VOLUME 94.8 fL (80.0-94.0); MEAN CORPUSCULAR HEMOGLOBIN 33.1 pg (27.0-31.0); MEAN CORPUSCULAR HGB CONC 34.9 g/dL (33.0-37.0); MEAN PLATELET VOLUME 8.1 fL (7.2-11.7); MONO # 0.7 K/uL (0.0-0.8); WHITE BLOOD COUNT 9.7 K/uL (4.8-10.8)
[2016-08-01 08:30] LABS: CHLORIDE 97 mmol/L (98-107)
[2016-08-01 08:31] LABS: POTASSIUM 4.3 mmol/L (3.6-5.2); SODIUM 134 mmol/L (132-148)
[2016-08-01 08:33] LABS: ALB/GLOB RATIO 1.3 (1.0-2.1); ALKALINE PHOSPHATASE 77 U/L (38-126); ALT/SGPT 49 U/L (21-72); AST/SGOT 30 U/L (17-59); BILIRUBIN,TOTAL 0.5 mg/dL (0.2-1.3); BLOOD UREA NITROGEN 14 mg/dL (9-20); CALCIUM 8.4 mg/dl (8.6-10.4); CARBON DIOXIDE 28 mmol/L (22-30); GFR AFRICAN-AMERICAN > 60; GLUCOSE,RANDOM 304 mg/dL (75-110); TOTAL PROTEIN 6.5 g/dL (6.3-8.3)
[2016-08-01] MEDS: Pantoprazole 40 mg EC Tab PO SCH (09:45)
[2016-08-01] MEDS: Enoxaparin 40 mg Syringe SC SCH (09:46)
--- NOTE | 2016-08-01 11:11 | CP.PCM.PN ---
<Kesha Senior - Last Filed: 08/01/16 11:07> Subjective - Date & Time of Evaluation Date of Evaluation: 08/01/16 Time of Evaluation: 07:00 - Subjective Subjective: Medicine Note for Dr. Hackett, Patient was seen and examined at bedside. Patient reports his breathing has minimally improved. He continues to have headaches despite the medication we provided. Patient reported he wants to step outside to smoke a cigarrete. Patient informed that if he wants to leave the hospital he would have to sign out AMA. Patient stated he would rather stay and improve his breathing. Denied fever, chills, chest pain, abdominal pain, n/v/d/c, or urinary symptoms. Objective - Vital Signs/Intake and Output Vital Signs (last 24 hours): Temp Pulse Resp BP Pulse Ox 97.8 F 78 20 142/90 97 08/01/16 07:35 08/01/16 07:35 08/01/16 07:35 08/01/16 07:35 08/01/16 07:35 Intake and Output: 08/01/16 08/01/16 06:59 18:59 Intake Total 200 Output Total 800 Balance -600 - Medications Medications: Current Medications Acetaminophen/Butalbital/Caffeine (Fioricet) 1 tab PO Q4 PRN PRN Reason: Headache Last Admin: 08/01/16 00:01 Dose: 1 tab Albuterol/Ipratropium (Duoneb 3 Mg/0.5 Mg (3 Ml) Ud) 3 ml INH RQ6 [facility] Last Admin: 08/01/16 09:20 Dose: Not Given Enoxaparin Sodium (Lovenox) 40 mg SC DAILY [facility] Last Admin: 08/01/16 09:46 Dose: Not Given Insulin Human Regular (Novolin R) 0 unit SC ACHS FELA PRN Reason: Protocol Methylprednisolone (Solu-Medrol) 40 mg IVP Q8H [facility] Last Admin: 08/01/16 06:12 Dose: 40 mg Ondansetron HCl (Zofran Inj) 4 mg IVP Q6 PRN Pantoprazole Sodium (Protonix Ec Tab) 40 mg PO DAILY [facility] Last Admin: 08/01/16 09:45 Dose: 40 mg Pneumococcal Polyvalent Vaccine (Pneumovax 23 Vaccine) 0.5 ml IM .ONCE ONE Stop: 08/02/16 10:01 - Labs Labs: 08/01/16 08:07 08/01/16 08:07 PT 12.0 SECONDS (9.7-12.2) 07/31/16 07:08 INR 1.1 07/31/16 07:08 APTT 29 SECONDS (21-34) 07/31/16 07:08 - Constitutional Appears: No Acute Distress - Head Exam Head Exam: NORMAL INSPECTION, NORMOCEPHALIC - Eye Exam Eye Exam: Normal appearance - Neck Exam Neck Exam: absent: Tenderness - Respiratory Exam Respiratory Exam: Wheezes - Cardiovascular Exam Cardiovascular Exam: REGULAR RHYTHM, RRR - GI/Abdominal Exam GI & Abdominal Exam: Soft, Normal Bowel Sounds. absent: Distended, Tenderness - Extremities Exam Extremities Exam: Normal Inspection. absent: Pedal Edema, Tenderness - Neurological Exam Neurological Exam: Alert, Awake, Oriented x3 - Skin Skin Exam: Dry, Intact, Normal Color, Warm Assessment and Plan - Assessment and Plan (Free Text) Plan: Dyspnea Secondary to Asthma vs COPD CXR- NAD D-dimer < 200 Duonebs RQ6H Solu-medrol 40 mg IVP Q8H Pulmicort Q12H Headaches History of migraines Fioricet 1 tab PO Q4H PRN Sumitriptan SC to see if this helps DM Accuchecks ACHS ISS montior glucose Tobacco Use Disorder Counseled on Smoking Cessation Nicotine Patch Prophylactic Measures Protonix 40 mg PO daily Lovenox 40 mg SC daily SCDs DW Dr. Hackett, Parrish GONZALEZ, PGY-1 <Payam Hackett H - Last Filed: 08/01/16 15:28> Objective - Vital Signs/Intake and Output Vital Signs (last 24 hours): Temp Pulse Resp BP Pulse Ox 97.8 F 78 20 142/90 97 08/01/16 07:35 08/01/16 07:35 08/01/16 07:35 08/01/16 07:35 08/01/16 07:35 Intake and Output: 08/01/16 08/01/16 06:59 18:59 Intake Total 200 Output Total 800 Balance -600 - Medications Medications: Current Medications Acetaminophen/Butalbital/Caffeine (Fioricet) 1 tab PO Q4 PRN PRN Reason: Headache Last Admin: 08/01/16 00:01 Dose: 1 tab Acetylcysteine (Acetylcysteine 20%) 4 ml INH RQ6 [facility] Albuterol/Ipratropium (Duoneb 3 Mg/0.5 Mg (3 Ml) Ud) 3 ml INH RQ6 [facility] Last Admin: 08/01/16 14:40 Dose: 3 ml Budesonide (Pulmicort Respules) 0.5 mg INH RQ12 [facility] Last Admin: 08/01/16 14:40 Dose: 0.5 mg Enoxaparin Sodium (Lovenox) 40 mg SC DAILY [facility] Last Admin: 08/01/16 09:46 Dose: Not Given Insulin Human Regular (Novolin R) 0 unit SC ACHS FELA PRN Reason: Protocol Last Admin: 08/01/16 11:39 Dose: 12 unit Methylprednisolone (Solu-Medrol) 40 mg IVP Q8H [facility] Last Admin: 08/01/16 14:41 Dose: 40 mg Nicotine (Nicoderm Cq) 1 patch TD DAILY [facility] Last Admin: 08/01/16 11:40 Dose: Not Given Ondansetron HCl (Zofran Inj) 4 mg IVP Q6 PRN Pantoprazole Sodium (Protonix Ec Tab) 40 mg PO DAILY [facility] Last Admin: 08/01/16 09:45 Dose: 40 mg Pneumococcal Polyvalent Vaccine (Pneumovax 23 Vaccine) 0.5 ml IM .ONCE ONE Stop: 08/02/16 10:01 - Labs Labs: 08/01/16 08:07 08/01/16 08:07 PT 12.0 SECONDS (9.7-12.2) 07/31/16 07:08 INR 1.1 07/31/16 07:08 APTT 29 SECONDS (21-34) 07/31/16 07:08 Attending/Attestation - Attestation I have personally seen and examined this patient.: Yes I have fully participated in the care of the patient.: Yes I have reviewed all pertinent clinical information, including history, physical exam and plan: Yes
[2016-08-01] MEDS ORDERED: Sodium Chloride 0.9% 1,000 ML IV SCH (12:30)
[2016-08-01] MEDS: Budesonide 0.5 mg/2 ml Inhal Susp UD INH SCH ×2 (14:40→20:22)
[2016-08-01] MEDS: Acetylcysteine 20% Inhal Soln (4ml) INH SCH (20:22)
[2016-08-02] MEDS: Albuterol-Ipratrop 3 mg / 0.5 (3 ml) UD INH SCH ×4 (01:40→19:51)
[2016-08-02] MEDS: Acetylcysteine 20% Inhal Soln (4ml) INH SCH ×4 (01:43→19:50)
[2016-08-02] MEDS: MethylPREDNISolone 40 mg Vial IVP SCH ×3 (06:16→22:19)
[2016-08-02 07:37] LABS: BASO % 0.1 % (0.0-2.0); HEMATOCRIT 42.5 % (35.0-51.0); LYMPH # 1.7 K/uL (1.0-4.3); LYMPH % 13.6 % (20.0-40.0); MEAN CELL VOLUME 94.1 fL (80.0-94.0); MEAN CORPUSCULAR HEMOGLOBIN 33.2 pg (27.0-31.0); MEAN CORPUSCULAR HGB CONC 35.2 g/dL (33.0-37.0); MONO # 0.9 K/uL (0.0-0.8); MONO % 7.2 % (0.0-10.0); RED CELL DISTRIBUTION WIDTH 12.6 % (11.5-14.5); WHITE BLOOD COUNT 12.3 K/uL (4.8-10.8)
--- NOTE | 2016-08-02 07:55 | CARD ---
APPROVED REPORT EKG Measurement Heart [id number] <Conclusion> Sinus tachycardia Right atrial enlargement Anterior infarct, age undetermined Abnormal ECG
[2016-08-02 08:04] LABS: CHLORIDE 95 mmol/L (98-107); SODIUM 135 mmol/L (132-148)
[2016-08-02 08:05] LABS: POTASSIUM 4.3 mmol/L (3.6-5.2)
[2016-08-02 08:07] LABS: ALB/GLOB RATIO 1.3 (1.0-2.1); ALKALINE PHOSPHATASE 79 U/L (38-126); ALT/SGPT 34 U/L (21-72); AST/SGOT 14 U/L (17-59); BILIRUBIN,TOTAL 0.5 mg/dL (0.2-1.3); BLOOD UREA NITROGEN 15 mg/dL (9-20); CARBON DIOXIDE 30 mmol/L (22-30); GFR AFRICAN-AMERICAN > 60; GLUCOSE,RANDOM 309 mg/dL (75-110); TOTAL PROTEIN 6.7 g/dL (6.3-8.3)
[2016-08-02 08:08] LABS: CALCIUM 8.6 mg/dl (8.6-10.4)
[2016-08-02] MEDS: Budesonide 0.5 mg/2 ml Inhal Susp UD INH SCH ×2 (08:21→19:50)
[2016-08-02] MEDS: (Novolin R) Insulin Human Regular 100 units/ml vial SC SCH ×4 (08:25→22:16)
[2016-08-02] MEDS ORDERED: Tramadol 25 mg PO SCH (09:00)
[2016-08-02] MEDS: Pantoprazole 40 mg EC Tab PO SCH (09:32)
[2016-08-02] MEDS: Enoxaparin 40 mg Syringe SC SCH (09:32)
--- NOTE | 2016-08-02 09:32 | CP.PCM.PN ---
<Kesha Senior - Last Filed: 08/02/16 11:51> Subjective - Date & Time of Evaluation Date of Evaluation: 08/02/16 Time of Evaluation: 08:00 - Subjective Subjective: Medicine Note for Dr. Hackett, Patient was seen and examined at bedside. Patient reports his breathing has not much improved, he continues to wheeze. He reports his headache is still severe and unimproved with fiorect and sumatriptan. The pain is slightly improved momentarily with toradol. Patient started on Ultram, Verapamil, and another SC dose of Sumatriptan will be started. Denied fever, chills, chest pain, SOB, abdominal pain, or urinary symptoms. Objective - Vital Signs/Intake and Output Vital Signs (last 24 hours): Temp Pulse Resp BP Pulse Ox 97.9 F 69 20 133/77 97 08/02/16 07:53 08/02/16 07:53 08/02/16 07:53 08/02/16 07:53 08/02/16 07:53 Intake and Output: 08/02/16 08/02/16 06:59 18:59 Intake Total 250 Balance 250 - Medications Medications: Current Medications Acetaminophen/Butalbital/Caffeine (Fioricet) 1 tab PO Q4 PRN PRN Reason: Headache Last Admin: 08/01/16 21:30 Dose: 1 tab Acetylcysteine (Acetylcysteine 20%) 4 ml INH RQ6 [facility] Last Admin: 08/02/16 08:22 Dose: Not Given Albuterol/Ipratropium (Duoneb 3 Mg/0.5 Mg (3 Ml) Ud) 3 ml INH RQ6 [facility] Last Admin: 08/02/16 08:21 Dose: 3 ml Budesonide (Pulmicort Respules) 0.5 mg INH RQ12 [facility] Last Admin: 08/02/16 08:21 Dose: 0.5 mg Enoxaparin Sodium (Lovenox) 40 mg SC DAILY [facility] Last Admin: 08/01/16 09:46 Dose: Not Given Insulin Human Regular (Novolin R) 0 unit SC ACHS [facility] PRN Reason: Protocol Last Admin: 08/02/16 08:25 Dose: 6 unit Methylprednisolone (Solu-Medrol) 40 mg IVP Q8H [facility] Last Admin: 08/02/16 06:16 Dose: 40 mg Nicotine (Nicoderm Cq) 1 patch TD DAILY [facility] Last Admin: 08/01/16 11:40 Dose: Not Given Ondansetron HCl (Zofran Inj) 4 mg IVP Q6 PRN Pantoprazole Sodium (Protonix Ec Tab) 40 mg PO DAILY [facility] Last Admin: 08/01/16 09:45 Dose: 40 mg Pneumococcal Polyvalent Vaccine (Pneumovax 23 Vaccine) 0.5 ml IM .ONCE ONE Stop: 08/02/16 10:01 Tramadol HCl (Ultram) 25 mg PO TID [facility] - Labs Labs: 08/02/16 07:18 08/02/16 07:18 PT 12.0 SECONDS (9.7-12.2) 07/31/16 07:08 INR 1.1 07/31/16 07:08 APTT 29 SECONDS (21-34) 07/31/16 07:08 - Constitutional Appears: No Acute Distress - Head Exam Head Exam: NORMAL INSPECTION, NORMOCEPHALIC - Respiratory Exam Respiratory Exam: Wheezes - Cardiovascular Exam Cardiovascular Exam: REGULAR RHYTHM, RRR, +S1, +S2 - GI/Abdominal Exam GI & Abdominal Exam: Soft, Normal Bowel Sounds. absent: Distended, Tenderness - Extremities Exam Extremities Exam: Normal Inspection. absent: Pedal Edema, Tenderness - Neurological Exam Neurological Exam: Alert, Awake, Oriented x3 - Skin Skin Exam: Dry, Intact, Normal Color, Warm Assessment and Plan - Assessment and Plan (Free Text) Plan: Dyspnea Secondary to Asthma vs COPD CXR- NAD D-dimer < 200 Duonebs RQ6H Solu-medrol 40 mg IVP Q8H Pulmicort Q12H Headaches History of migraines Fioricet 1 tab PO Q4H PRN Sumitriptan SC to see if this helps Sumitriptan SC x 2 (max dose) Ultram 25mg PO TID Verapramil 120mg PO BID Neurology consulted- Dr. Poole - help appreciated Requested MRI and CT scan reports from [facility]- pending reports Patient brought CT Head w/o contrast, CTA head and neck reports from [facility]- which showed no acute bleeding or aneurysm DM Accuchecks ACHS ISS montior glucose Tobacco Use Disorder Counseled on Smoking Cessation Nicotine Patch Prophylactic Measures Protonix 40 mg PO daily Lovenox 40 mg SC daily SCDs DW Dr. Hackett, Parrish GONZALEZ, PGY-1 <Payam Hackett H - Last Filed: 08/02/16 14:26> Objective - Vital Signs/Intake and Output Vital Signs (last 24 hours): Temp Pulse Resp BP Pulse Ox 97.9 F 69 20 133/77 97 08/02/16 07:53 08/02/16 07:53 08/02/16 07:53 08/02/16 07:53 08/02/16 07:53 Intake and Output: 08/02/16 08/02/16 06:59 18:59 Intake Total 250 Balance 250 - Medications Medications: Current Medications Acetaminophen/Butalbital/Caffeine (Fioricet) 1 tab PO Q4 PRN PRN Reason: Headache Last Admin: 08/01/16 21:30 Dose: 1 tab Acetylcysteine (Acetylcysteine 20%) 4 ml INH RQ6 [facility] Last Admin: 08/02/16 13:43 Dose: 4 ml Albuterol/Ipratropium (Duoneb 3 Mg/0.5 Mg (3 Ml) Ud) 3 ml INH RQ6 [facility] Last Admin: 08/02/16 13:43 Dose: 3 ml Budesonide (Pulmicort Respules) 0.5 mg INH RQ12 [facility] Last Admin: 08/02/16 08:21 Dose: 0.5 mg Enoxaparin Sodium (Lovenox) 40 mg SC DAILY [facility] Last Admin: 08/02/16 09:32 Dose: 40 mg Insulin Human Regular (Novolin R) 0 unit SC ACHS [facility] PRN Reason: Protocol Last Admin: 08/02/16 12:07 Dose: 10 unit Methylprednisolone (Solu-Medrol) 40 mg IVP Q8H [facility] Last Admin: 08/02/16 06:16 Dose: 40 mg Nicotine (Nicoderm Cq) 1 patch TD DAILY [facility] Last Admin: 08/02/16 09:35 Dose: Not Given Ondansetron HCl (Zofran Inj) 4 mg IVP Q6 PRN Pantoprazole Sodium (Protonix Ec Tab) 40 mg PO DAILY [facility] Last Admin: 08/02/16 09:32 Dose: 40 mg Tramadol HCl (Ultram) 50 mg PO TID PRN PRN Reason: Headache Verapamil HCl (Calan Sr Tab) 120 mg PO BID [facility] Last Admin: 08/02/16 11:32 Dose: 120 mg - Labs Labs: 08/02/16 07:18 08/02/16 07:18 PT 12.0 SECONDS (9.7-12.2) 07/31/16 07:08 INR 1.1 07/31/16 07:08 APTT 29 SECONDS (21-34) 07/31/16 07:08 Attending/Attestation - Attestation I have personally seen and examined this patient.: Yes I have fully participated in the care of the patient.: Yes I have reviewed all pertinent clinical information, including history, physical exam and plan: Yes Notes (Text): 08/02/16 14:19 Medical Attending: Patient was seen and examined by me with the medical assistant secretary. Agree with the above note by the resident. After we discussed with him will try to get DE results from [facility]. He had results from [facility] where he had CT of the head with contrast done and this was normal Will again try summatriptan SC as well as oxygen nonrebreath, CCB, ultram. With reguards to his breathing he still has wheezing. thank you Payam Hackett
[2016-08-02] MEDS ORDERED: Pneumococcal 23-Valent Vaccine IM ONE (10:00)
[2016-08-02] MEDS: Verapamil 120 mg ER Tab PO SCH ×2 (11:32→18:50)
--- NOTE | 2016-08-02 17:33 | CON ---
DATE: 08/02/2016 REASON FOR CONSULTATION: Headaches. HISTORY OF PRESENT ILLNESS: The patient is a 41-year-old male who has been asked for evaluation of rodney martino. The patient said he started having headaches since the end of May. The headache is desc ribed as pressure and throbbing in nature. It has been almost every day he is getting headaches. He adaches are described as pressure like and throbbing, sometimes on the left side, sometimes on the ri ght side of the head. Headaches are associated with nausea at times. Sometimes light bothers. He w as apparently in the [facility] where he had a CT scan of the head done and according to patient it was normal. He also said that he might have MRI of the brain done. He does not know the report. He also complains of some dizzy spells associated with headaches. Denies any other comp laints. REVIEW OF SYSTEMS: Positive for headache. Denies any chest pain. Positive for shortness of breath. Denies any constipation, diarrhea, dysuria, pyuria, cough or sputum production. PAST MEDICAL HISTORY: Headaches, diabetes mellitus. MEDICATIONS: At home include Tylenol. ALLERGIES: No known drug allergies. SOCIAL HISTORY: He smokes cigarettes. He drinks alcohol socially and smokes marijuana occasionally. FAMILY HISTORY: Reviewed and noncontributory to the case. PHYSICAL EXAMINATION: GENERAL: The patient is a middle-aged male lying on the bed, in no acute distress. VITAL SIGNS: His blood pressure is 133/77, heart rate is 69 per minute, breathing at a rate of 16 pe r minute, temperature is 97.9 degrees Fahrenheit. HEENT: Normocephalic, atraumatic. NECK: Supple. There are no carotid bruits. LUNGS: Clear. CARDIOVASCULAR: S1, S2 audible. No murmurs. ABDOMEN: Soft and nontender, bowel sounds present. NEUROLOGIC EXAMINATION: MENTAL STATUS: The patient is awake and alert, oriented to time, place, person. His speech is fluen t. Naming and repetition are normal. Memory and cognition are intact. CRANIAL NERVES: Pupils are 4 mm bilaterally reactive to light. Visual juarez are full. Extraocular movements are intact. There is no facial asymmetry. Palate is upgoing bilaterally and tongue is mi dline. MOTOR: Tone is normal. Power is 5/5 bilaterally in all extremities. Reflexes +2 and symmetrical. Plantars downgoing bilaterally. CEREBELLAR: [id number] shows no dysmetria. GAIT: Narrow based. LABORATORIES: Reviewed, shows WBC of 12.3, hemoglobin 15.0, hematocrit of 42.5 and platelets of 224. Sodium is 135, potassium 4.3, chloride 95, carbon dioxide 30, BUN of 15, creatinine 0.8, and glucos e of 309. IMPRESSION: Chronic daily headaches with some migrainous component. RECOMMENDATIONS: 1. The patient is currently on tramadol 25 mg 3 times a day. I will change it to 50 mg every 8 hour s on an as needed basis. 2. He was also given sumatriptan which he may continue as needed. 3. The patient also on Solu-Medrol for his asthma exacerbation. That will also help in aborting the headaches. 4. I will start patient on nortriptyline 10 mg at bedtime and if he tolerates the medication and con tinues to have headaches the dose may be increased to 20 mg at bedtime. 5. The patient apparently had MRI of the brain done in [facility]. If unable to obt ain the results consider repeating an imaging study. 6. The patient is also on verapamil, which may be continued for headache prophylaxis. 7. Please continue supportive care and other treatment. Thank you for the opportunity to participate in the care of this patient. Aly Poole MD cc: [id number] TT: 08/02/2016 17:32:49 Confirmation # [id number] Dictation # [id number] mn
[2016-08-02] MEDS: Apap-Butalbital-Caffeine 325-50-40mg Tab PO PRN (18:55)
[2016-08-02] MEDS ORDERED: (Novolin R) Insulin Human Regular 100 units/ml vial SC ONE (22:08)
[2016-08-03] MEDS: Albuterol-Ipratrop 3 mg / 0.5 (3 ml) UD INH SCH ×5 (01:35→20:18)
[2016-08-03] MEDS: Acetylcysteine 20% Inhal Soln (4ml) INH SCH ×4 (01:37→20:17)
[2016-08-03] MEDS ORDERED: (Novolin R) Insulin Human Regular 100 units/ml vial SC ONE ×2 (03:01→21:29)
[2016-08-03] MEDS: MethylPREDNISolone 40 mg Vial IVP SCH ×3 (06:18→21:36)
[2016-08-03] MEDS: Budesonide 0.5 mg/2 ml Inhal Susp UD INH SCH ×2 (08:07→20:16)
[2016-08-03] MEDS: (Novolin R) Insulin Human Regular 100 units/ml vial SC SCH ×4 (08:33→21:32)
[2016-08-03 09:12] LABS: BASO % 0.1 % (0.0-2.0); HEMATOCRIT 46.1 % (35.0-51.0); LYMPH # 0.8 K/uL (1.0-4.3); LYMPH % 5.5 % (20.0-40.0); MEAN CELL VOLUME 95.4 fL (80.0-94.0); MEAN CORPUSCULAR HEMOGLOBIN 32.4 pg (27.0-31.0); MEAN PLATELET VOLUME 8.3 fL (7.2-11.7); MONO # 0.8 K/uL (0.0-0.8); MONO % 5.6 % (0.0-10.0); PLATELET COUNT 245 K/uL (130-400); RED CELL DISTRIBUTION WIDTH 13.1 % (11.5-14.5); WHITE BLOOD COUNT 14.2 K/uL (4.8-10.8)
[2016-08-03 09:23] LABS: CHLORIDE 94 mmol/L (98-107); POTASSIUM 4.8 mmol/L (3.6-5.2); SODIUM 133 mmol/L (132-148)
[2016-08-03 09:25] LABS: ALB/GLOB RATIO 1.4 (1.0-2.1); ALKALINE PHOSPHATASE 148 U/L (38-126); AST/SGOT 15 U/L (17-59); BILIRUBIN,TOTAL 0.5 mg/dL (0.2-1.3); CARBON DIOXIDE 27 mmol/L (22-30); GFR AFRICAN-AMERICAN > 60; TOTAL PROTEIN 6.9 g/dL (6.3-8.3)
[2016-08-03 09:26] LABS: ALT/SGPT 34 U/L (21-72); BLOOD UREA NITROGEN 22 mg/dL (9-20); CALCIUM 9.6 mg/dl (8.6-10.4)
[2016-08-03 09:37] LABS: GLUCOSE,RANDOM 519 mg/dL (75-110)
[2016-08-03 09:38] LABS: NEUTROPHIL 93 % (50-75); TOTAL CELLS COUNTED 100
[2016-08-03] MEDS: Enoxaparin 40 mg Syringe SC SCH ×2 (11:01→11:04)
[2016-08-03] MEDS: Pantoprazole 40 mg EC Tab PO SCH (11:01)
[2016-08-03] MEDS: Verapamil 120 mg ER Tab PO SCH ×2 (11:28→17:13)
--- NOTE | 2016-08-03 13:23 | CP.PCM.PN ---
<Kesha Senior - Last Filed: 08/03/16 13:28> Subjective - Date & Time of Evaluation Date of Evaluation: 08/03/16 Time of Evaluation: 07:00 - Subjective Subjective: Medicine Note for Dr. Hackett, Patient was seen and examined at bedside. Patient reports his breathing has not much improved, he continues to wheeze. He reports his headache is still severe and unimproved with fiorect and sumatriptan. The pain is slightly improved momentarily with Ultram and SC sumatriptan. As per Neurology, Nortriptyline was added. Denied fever, chills, chest pain, SOB, abdominal pain, or urinary symptoms. Patient showed paper records and medical records were retrieved from [facility]: Head CT w/o contrast, CTA of Head and Neck, MRI brain without contrast, MRA head and neck all done on 07/22/16 at two hospitals [facility] and [facility]. He had these examinations done at both institutions on the same day. All results were negative. Objective - Vital Signs/Intake and Output Vital Signs (last 24 hours): Temp Pulse Resp BP Pulse Ox 98.4 F 72 20 146/89 96 08/03/16 07:00 08/03/16 07:00 08/03/16 07:00 08/03/16 07:00 08/03/16 07:00 Intake and Output: 08/03/16 08/03/16 06:59 18:59 Intake Total 800 Balance 800 - Medications Medications: Current Medications Acetaminophen/Butalbital/Caffeine (Fioricet) 1 tab PO Q4 PRN PRN Reason: Headache Last Admin: 08/01/16 21:30 Dose: 1 tab Acetylcysteine (Acetylcysteine 20%) 4 ml INH RQ6 [facility] Last Admin: 08/03/16 08:07 Dose: Not Given Albuterol/Ipratropium (Duoneb 3 Mg/0.5 Mg (3 Ml) Ud) 3 ml INH RQ4 [facility] Last Admin: 08/03/16 08:07 Dose: 3 ml Budesonide (Pulmicort Respules) 0.5 mg INH RQ12 [facility] Last Admin: 08/03/16 08:07 Dose: 0.5 mg Enoxaparin Sodium (Lovenox) 40 mg SC DAILY [facility] Last Admin: 08/03/16 11:04 Dose: Not Given Insulin Human Regular (Novolin R) 0 unit SC ACHS [facility] PRN Reason: Protocol Last Admin: 08/03/16 12:14 Dose: 4 unit Methylprednisolone (Solu-Medrol) 40 mg IVP Q8H [facility] Last Admin: 08/03/16 06:18 Dose: 40 mg Nicotine (Nicoderm Cq) 1 patch TD DAILY [facility] Last Admin: 08/03/16 11:02 Dose: Not Given Nortriptyline HCl (Pamelor) 10 mg PO QPM [facility] Ondansetron HCl (Zofran Inj) 4 mg IVP Q6 PRN Pantoprazole Sodium (Protonix Ec Tab) 40 mg PO DAILY [facility] Last Admin: 08/03/16 11:01 Dose: 40 mg Tramadol HCl (Ultram) 50 mg PO TID PRN PRN Reason: Headache Last Admin: 08/03/16 11:00 Dose: 50 mg Verapamil HCl (Calan Sr Tab) 120 mg PO BID [facility] Last Admin: 08/03/16 11:28 Dose: 120 mg - Labs Labs: 08/03/16 08:57 08/03/16 08:57 PT 12.0 SECONDS (9.7-12.2) 07/31/16 07:08 INR 1.1 07/31/16 07:08 APTT 29 SECONDS (21-34) 07/31/16 07:08 - Constitutional Appears: No Acute Distress - Head Exam Head Exam: NORMAL INSPECTION, NORMOCEPHALIC - ENT Exam ENT Exam: Mucous Membranes Moist - Respiratory Exam Respiratory Exam: Wheezes - Cardiovascular Exam Cardiovascular Exam: REGULAR RHYTHM - GI/Abdominal Exam GI & Abdominal Exam: Soft, Normal Bowel Sounds. absent: Distended, Tenderness - Extremities Exam Extremities Exam: Normal Inspection. absent: Pedal Edema, Tenderness - Neurological Exam Neurological Exam: Alert, Awake, Oriented x3 - Skin Skin Exam: Dry, Intact, Normal Color, Warm Assessment and Plan - Assessment and Plan (Free Text) Plan: Dyspnea Secondary to Asthma vs COPD CXR- NAD D-dimer < 200 Duonebs RQ6H Solu-medrol 40 mg IVP Q8H Pulmicort Q12H Headaches History of migraines Fioricet 1 tab PO Q4H PRN Sumitriptan SC to see if this helps Sumitriptan SC x 2 (max dose) Ultram 25mg PO TID Verapramil 120mg PO BID Neurology consulted- Dr. Poole - Nortriptyline was added starting at 10mg can be increased to 20mg PO QHS if needed. Patient showed paper records and medical records were retrieved from [facility]: Head CT w/o contrast, CTA of Head and Neck, MRI brain without contrast, MRA head and neck all done on 07/22/16 at two hospitals [facility] and [facility]. He had these examinations done at both institutions on the same day. All results were negative. Patient brought CT Head w/o contrast, CTA head and neck reports from [facility]- which showed no acute bleeding or aneurysm DM Accuchecks ACHS ISS montior glucose Tobacco Use Disorder Counseled on Smoking Cessation Nicotine Patch Prophylactic Measures Protonix 40 mg PO daily Lovenox 40 mg SC daily [facility]CDs Plan is for discharge tomorrow. DW Dr. Hackett, Parrish GONZALEZ, PGY-1 <Payam Hackett - Last Filed: 08/03/16 14:27> Objective - Vital Signs/Intake and Output Vital Signs (last 24 hours): Temp Pulse Resp BP Pulse Ox 98.4 F 72 20 146/89 96 08/03/16 07:00 08/03/16 07:00 08/03/16 07:00 08/03/16 07:00 08/03/16 07:00 Intake and Output: 08/03/16 08/03/16 06:59 18:59 Intake Total 800 Balance 800 - Medications Medications: Current Medications Acetaminophen/Butalbital/Caffeine (Fioricet) 1 tab PO Q4 PRN PRN Reason: Headache Last Admin: 08/01/16 21:30 Dose: 1 tab Acetylcysteine (Acetylcysteine 20%) 4 ml INH RQ6 [facility] Last Admin: 08/03/16 13:54 Dose: Not Given Albuterol/Ipratropium (Duoneb 3 Mg/0.5 Mg (3 Ml) Ud) 3 ml INH RQ4 [facility] Last Admin: 08/03/16 13:54 Dose: 3 ml Budesonide (Pulmicort Respules) 0.5 mg INH RQ12 [facility] Last Admin: 08/03/16 08:07 Dose: 0.5 mg Enoxaparin Sodium (Lovenox) 40 mg SC DAILY [facility] Last Admin: 08/03/16 11:04 Dose: Not Given Insulin Human Regular (Novolin R) 0 unit SC ACHS [facility] PRN Reason: Protocol Last Admin: 08/03/16 12:14 Dose: 4 unit Methylprednisolone (Solu-Medrol) 40 mg IVP Q8H [facility] Last Admin: 08/03/16 13:38 Dose: 40 mg Nicotine (Nicoderm Cq) 1 patch TD DAILY [facility] Last Admin: 08/03/16 11:02 Dose: Not Given Nortriptyline HCl (Pamelor) 10 mg PO QPM [facility] Ondansetron HCl (Zofran Inj) 4 mg IVP Q6 PRN Pantoprazole Sodium (Protonix Ec Tab) 40 mg PO DAILY [facility] Last Admin: 08/03/16 11:01 Dose: 40 mg Tramadol HCl (Ultram) 50 mg PO TID PRN PRN Reason: Headache Last Admin: 08/03/16 11:00 Dose: 50 mg Verapamil HCl (Calan Sr Tab) 120 mg PO BID [facility] Last Admin: 08/03/16 11:28 Dose: 120 mg - Labs Labs: 08/03/16 08:57 08/03/16 08:57 PT 12.0 SECONDS (9.7-12.2) 07/31/16 07:08 INR 1.1 07/31/16 07:08 APTT 29 SECONDS (21-34) 07/31/16 07:08 Attending/Attestation - Attestation I have personally seen and examined this patient.: Yes I have fully participated in the care of the patient.: Yes I have reviewed all pertinent clinical information, including history, physical exam and plan: Yes Notes (Text): 08/03/16 14:24 Medical attending: Patient was seen and examined by me, agrees the above note by medical office worker. At this time agree to try additional sumatriptan and that was given subcutaneously twice a day, as well as oral verapamil, and Ultram by mouth. Results of MRI done at [facility] have arrived and these were benign as documented before he also had CT imaging with contrast done of the head and neck these were also stable as well. The interesting note is that the MRIs from [facility] and this CT studies are from [facility] hospital. And the dates on these studies are exactly the same as when I did discuss with the patient before your, he stated that he was going from hospital to hospital. Thank you very much, at this point we'll consider discharging the patient relatively soon. He's given need some oral sumatriptan thank you Payam Hackett
[2016-08-04] MEDS: Albuterol-Ipratrop 3 mg / 0.5 (3 ml) UD INH SCH ×4 (00:42→11:23)
[2016-08-04] MEDS: Apap-Butalbital-Caffeine 325-50-40mg Tab PO PRN (01:08)
[2016-08-04] MEDS: Acetylcysteine 20% Inhal Soln (4ml) INH SCH ×2 (02:00→07:53)
[2016-08-04] MEDS: (Novolin R) Insulin Human Regular 100 units/ml vial SC ONE ×3 (02:59→03:07)
[2016-08-04] MEDS: MethylPREDNISolone 40 mg Vial IVP SCH (06:06)
--- NOTE | 2016-08-04 07:18 | CP.PCM.DIS ---
<Kesha Senior - Last Filed: 08/04/16 07:10> Provider - Provider Date of Admission: 07/30/16 21:41 Attending physician: Adrien Nesbitt MD Time Spent in preparation of Discharge (in minutes): 35 Hospital Course - Lab Results Lab Results: Most Recent Lab Values WBC 14.2 K/uL (4.8-10.8) H 08/03/16 08:57 RBC 4.83 Mil/uL (4.40-5.90) 08/03/16 08:57 Hgb 15.7 g/dL (12.0-18.0) 08/03/16 08:57 Hct 46.1 % (35.0-51.0) 08/03/16 08:57 MCV 95.4 fL (80.0-94.0) H 08/03/16 08:57 MCH 32.4 pg (27.0-31.0) H 08/03/16 08:57 MCHC 34.0 g/dL (33.0-37.0) 08/03/16 08:57 RDW 13.1 % (11.5-14.5) 08/03/16 08:57 Plt Count 245 K/uL (130-400) 08/03/16 08:57 MPV 8.3 fL (7.2-11.7) 08/03/16 08:57 Neut % (Auto) 88.8 % (50.0-75.0) H 08/03/16 08:57 Lymph % (Auto) 5.5 % (20.0-40.0) L 08/03/16 08:57 Gulf % (Auto) 5.6 % (0.0-10.0) 08/03/16 08:57 Eos % (Auto) 0.0 % (0.0-4.0) 08/03/16 08:57 Baso % (Auto) 0.1 % (0.0-2.0) 08/03/16 08:57 Neut # 12.7 K/uL (1.8-7.0) H 08/03/16 08:57 Lymph # 0.8 K/uL (1.0-4.3) L 08/03/16 08:57 [place] # 0.8 K/uL (0.0-0.8) 08/03/16 08:57 Eos # 0.0 K/uL (0.0-0.7) 08/03/16 08:57 Baso # 0.0 K/uL (0.0-0.2) 08/03/16 08:57 Neutrophils % (Manual) 93 % (50-75) H 08/03/16 08:57 Lymphocytes % (Manual) 4 % (20-40) L 08/03/16 08:57 Monocytes % (Manual) 3 % (0-10) 08/03/16 08:57 Toxic Granulation Present 07/31/16 07:08 Platelet Estimate Normal (NORMAL) 08/03/16 08:57 RBC Morphology Normal 08/03/16 08:57 Anisocytosis (manual) Slight 07/31/16 07:08 PT 12.0 SECONDS (9.7-12.2) 07/31/16 07:08 INR 1.1 07/31/16 07:08 APTT 29 SECONDS (21-34) 07/31/16 07:08 D-Dimer, Quantitative < 200 ng/mlDDU (0-243) 07/30/16 21:46 Puncture Site Rra 07/30/16 20:08 pCO2 33 mm/Hg (35-45) L 07/30/16 20:08 pO2 74 mm/Hg (80-100) L 07/30/16 20:08 HCO3 23.1 mmol/L (21-28) 07/30/16 20:08 ABG pH 7.42 (7.35-7.45) 07/30/16 20:08 ABG Total CO2 22.4 mmol/L (22-28) 07/30/16 20:08 ABG O2 Saturation 96.6 % (95-98) 07/30/16 20:08 ABG Base Excess -2.3 mmol/L (-2.0-3.0) L 07/30/16 20:08 Zachary Test + 07/30/16 20:08 ABG Potassium 3.7 mmol/L (3.6-5.2) 07/30/16 20:08 A-a O2 Difference 34.0 mm/Hg 07/30/16 20:08 Respiratory Index 0.5 07/30/16 20:08 Sodium 140.0 mmol/l (132-148) 07/30/16 20:08 Chloride 106.0 mmol/L (98-107) 07/30/16 20:08 Glucose 307 mg/dl (75-110) H 07/30/16 20:08 Lactate 4.9 mmol/L (0.7-2.1) H* 07/30/16 20:08 Liter Flow 0 07/30/16 20:08 FiO2 21.0 % 07/30/16 20:08 Crit Value Called To Carson cunningham 07/30/16 20:08 Crit Value Called By Sky 07/30/16 20:08 Crit Value Read Back Y 07/30/16 20:08 Blood Gas Notified Time 201107/30/16 20:08 Sodium 133 mmol/L (132-148) 08/03/16 08:57 Potassium 4.8 mmol/L (3.6-5.2) 08/03/16 08:57 Chloride 94 mmol/L (98-107) L 08/03/16 08:57 Carbon Dioxide 27 mmol/L (22-30) 08/03/16 08:57 Anion Gap 17 (10-20) 08/03/16 08:57 BUN 22 mg/dL (9-20) H 08/03/16 08:57 Creatinine 0.8 MG/DL (0.8-1.5) 08/03/16 08:57 Est GFR ( Amer) > 60 08/03/16 08:57 Est GFR (Non-Af Amer) > 60 08/03/16 08:57 POC Glucose (mg/dL) 404 mg/dL (65-110) H* 08/04/16 01:57 Random Glucose 519 mg/dL (75-110) H* D 08/03/16 08:57 Calcium 9.6 mg/dl (8.6-10.4) 08/03/16 08:57 Magnesium 2.5 mg/dL (1.6-2.3) H 07/30/16 19:47 Total Bilirubin 0.5 mg/dL (0.2-1.3) 08/03/16 08:57 AST 15 U/L (17-59) L 08/03/16 08:57 ALT 34 U/L (21-72) 08/03/16 08:57 Alkaline Phosphatase 148 U/L (38-126) H D 08/03/16 08:57 Total Creatine Kinase 40 U/L (55-170) L 08/01/16 13:02 CK-MB (Mass) 0.97 ng/mL (0.0-3.38) 08/01/16 13:02 Troponin I, Quant < 0.0120 ng/mL (0.00-0.120) 08/01/16 13:02 Total Protein 6.9 g/dL (6.3-8.3) 08/03/16 08:57 Albumin 4.0 g/dL (3.5-5.0) 08/03/16 08:57 Globulin 2.9 gm/dL (2.2-3.9) 08/03/16 08:57 Albumin/Globulin Ratio 1.4 (1.0-2.1) 08/03/16 08:57 Arterial Blood Potassium 3.7 mmol/L (3.6-5.2) 07/30/16 20:08 Urine Color Straw (YELLOW) 07/30/16 20:03 Urine Clarity Clear (Clear) 07/30/16 20:03 Urine pH 6.0 (5.0-8.0) 07/30/16 20:03 Ur Specific [place] 1.030 (1.003-1.030) 07/30/16 20:03 Urine Protein Negative mg/dL (NEGATIVE) 07/30/16 20:03 Urine Glucose (UA) 3+ mg/dL (Normal) H 07/30/16 20:03 Urine Ketones Trace mg/dL (NEGATIVE) 07/30/16 20:03 Urine Blood Negative (NEGATIVE) 07/30/16 20:03 Urine Nitrate Negative (NEGATIVE) 07/30/16 20:03 Urine Bilirubin Negative (NEGATIVE) 07/30/16 20:03 Urine Urobilinogen Normal mg/dL (0.2-1.0) 07/30/16 20:03 Ur Leukocyte Esterase Neg Yovanny/uL (Negative) 07/30/16 20:03 Urine WBC (Auto) 1 /hpf (0-5) 07/30/16 20:03 Ur Squamous Epith Cells < 1 /hpf (0-5) 07/30/16 20:03 Urine Bacteria Rare (<OCC) 07/30/16 20:03 Urine Opiates Screen Negative (NEGATIVE) 07/30/16 20:07 Urine Methadone Screen Negative (NEGATIVE) 07/30/16 20:07 Ur Barbiturates Screen Negative (NEGATIVE) 07/30/16 20:07 Ur Phencyclidine Scrn Negative (NEGATIVE) 07/30/16 20:07 Ur Amphetamines Screen Negative (NEGATIVE) 07/30/16 20:07 U Benzodiazepines Scrn Negative (NEGATIVE) 07/30/16 20:07 U Oth Cocaine Metabols Negative (NEGATIVE) 07/30/16 20:07 U Cannabinoids Screen Positive (NEGATIVE) 07/30/16 20:07 Alcohol, Quantitative 36 mg/dl (0-10) H 07/30/16 20:07 - Hospital Course Hospital Course: Upon admission: CC: "difficulty breathing and Headache" 41 M with PMH of DM, headaches and vertigo presents to [facility] ED with complaint of difficulty breathing and Headache. Patient stated that he was admitted for the same complaint to [facility] earlier today before being discharge 3 hours later. Patient states that he was discharged because he did not have any insurance. Patient has been having headaches for last 2 months while the SOB started on last Sunday. Patient denies ever having these symptoms prior to then. Patient has also had cough since sunday. He feels like he has phlegm to cough up but cannot expel it. He rates the headaches as 10/10 in severity at times but currently 5-6/10. He describes the headache as constant and aching in the occipital region. He also reports that he has sharp pain in the temporal regions bilaterally. He reports photophobia, blurry vision, and aura occasionally. He states he was diagnosed with complex migraines previously. Patient had MRI done at [facility] today but did not get the results or discharge paperwork when he was sent home. Admits dizziness/lightheadedness, vertigo, near -syncope. Denies fever/chills, cp, abd pain, n/v/d, constipation, incontinence, urinary symptoms, seizures. PMD: denies PMH: Headaches, vertigo, DM Meds: Tylenol occasionally for headaches Allergy: NKDA PSH: Denies Hosp: [facility] last night/today for SOB and headaches FH: DM, CA, vertigo Social: smokes 1/2 to 1 pack per day for 20 years, Drinks 2 16 oz beers twice per week, smokes marijuana occasionally Throughout Hospital Course: Patient was admitted for asthma/ COPD exacerbation. CXR- NAD. Patient was started on breathing treaments, IV and IH steroids. Patient also suffers from severe migraines so he was started on multiple medications. Patient showed paper records and medical records were retrieved from [facility]: Head CT w/o contrast , CTA of Head and Neck, MRI brain without contrast, MRA head and neck all done on 07/22/16 at B[facility] hospitals [facility] and [facility]. He had these examinations done at both institutions on the same day. All results were negative. Neurology was consulted and suggested adding a TCA for prophylaxis. Patient will be discharged with steroid taper for his asthma exacerbation. This is a brief summary of the patient's hospital course. Please review EMR for full record. Discharge Exam - Head Exam Head Exam: NORMAL INSPECTION, NORMOCEPHALIC - ENT Exam ENT Exam: Mucous Membranes Moist - Respiratory Exam Respiratory Exam: Wheezes - Cardiovascular Exam Cardiovascular Exam: REGULAR RHYTHM, RRR, +S1, +S2 - GI/Abdominal Exam GI & Abdominal Exam: Normal Bowel Sounds, Soft. absent: Unremarkable - Extremities Exam Extremities exam: normal inspection, pedal pulses present - Neurological Exam Neurological exam: Alert, Oriented x3 - Skin Skin Exam: Dry, Intact, Normal Color, Warm Discharge Plan - Discharge Medications Prescriptions: Albuterol HFA [Ventolin HFA 90 mcg/actuation (8 g)] 1 puff IH Q4H PRN #1 inhaler PRN Reason: Shortness Of Breath Albuterol/Ipratropium [Duoneb 3 MG/3 Ml-0.5 MG/3 Ml 3 Ml] 3 ml IH Q6H PRN 30 Days PRN Reason: Wheezing Budesonide [Pulmicort Respules] 0.5 mg IH BID 30 Days Multivitamin [Multi-Vitamin Daily] 1 each PO DAILY #30 tablet Nebulizer [Aeroeclipse II] 1 each MC DAILY PRN #1 unit PRN Reason: Wheezing Nortriptyline [Pamelor] 10 mg PO QPM #30 cap predniSONE [Prednisone] 10 mg PO TID 3 Days predniSONE [Prednisone] 10 mg PO DAILY 3 Days predniSONE [predniSONE Tab] 20 mg PO BID 3 Days predniSONE [predniSONE Tab] 20 mg PO DAILY 3 Days - Follow Up Plan Condition: FAIR Disposition: HOME/ ROUTINE Patient education suggested?: Yes Instructions: Nortriptyline (By mouth), Albuterol (By mouth), Prednisone (By mouth), Multivitamins, Adult Formula (By mouth), Tramadol (By mouth), Budesonide (By breathing), Ipratropium/Albuterol (By breathing), Asthma (DC), Migraine Headache (DC), Vertigo (DC), Diabetic Foot Care (DC), Diabetic Hypoglycemia (DC), Diabetes Mellitus Type 2 in Adults (DC), Regular Diet (DC) Additional Instructions: Patient prescribed an albuterol inhaler to be used as a rescue inhaler. Prescribed a nebulizer with duonebs (use every 6 hours as needed for wheezing) and pulmicort (use TWICE A DAY EVERY DAY). Also given a steroid taper to be followed as described: 20mg by mouth twice a day for 3 days THEN 10mg 3 TIMES A DAY for 3 days, THEN 20mg by mouth daily for 3 days, THEN 10mg by mouth DAILY for 3 days. Patient is to follow up with a PMD or with the [facility] for continued patient care for his Asthma and Migraines. Patient instructed to follow up with a Neurologist for his persistent migraines. Patient encouraged to return to the ED if his symptoms worsen or return. Referrals: [facility] at [facility] [Outside] Aly Poole MD [Staff Provider] - <Payam Hackett - Last Filed: 08/04/16 15:51> Provider - Provider Date of Admission: 07/30/16 21:41 Attending physician: Adrien Nesbitt MD Hospital Course - Lab Results Lab Results: Most Recent Lab Values WBC 20.1 K/uL (4.8-10.8) H 08/04/16 08:15 RBC 5.16 Mil/uL (4.40-5.90) 08/04/16 08:15 Hgb 16.9 g/dL (12.0-18.0) 08/04/16 08:15 Hct 49.8 % (35.0-51.0) 08/04/16 08:15 MCV 96.4 fL (80.0-94.0) H 08/04/16 08:15 MCH 32.7 pg (27.0-31.0) H 08/04/16 08:15 MCHC 34.0 g/dL (33.0-37.0) 08/04/16 08:15 RDW 12.9 % (11.5-14.5) 08/04/16 08:15 Plt Count 259 K/uL (130-400) 08/04/16 08:15 MPV 7.9 fL (7.2-11.7) 08/04/16 08:15 Neut % (Auto) 87.4 % (50.0-75.0) H 08/04/16 08:15 Lymph % (Auto) 5.7 % (20.0-40.0) L 08/04/16 08:15 [place] % (Auto) 6.7 % (0.0-10.0) 08/04/16 08:15 Eos % (Auto) 0.0 % (0.0-4.0) 08/04/16 08:15 Baso % (Auto) 0.2 % (0.0-2.0) 08/04/16 08:15 Neut # 17.5 K/uL (1.8-7.0) H 08/04/16 08:15 Lymph # 1.1 K/uL (1.0-4.3) 08/04/16 08:15 [place] # 1.3 K/uL (0.0-0.8) H 08/04/16 08:15 Eos # 0.0 K/uL (0.0-0.7) 08/04/16 08:15 Baso # 0.0 K/uL (0.0-0.2) 08/04/16 08:15 Neutrophils % (Manual) 84 % (50-75) H 08/04/16 08:15 Lymphocytes % (Manual) 10 % (20-40) L 08/04/16 08:15 Monocytes % (Manual) 6 % (0-10) 08/04/16 08:15 Toxic Granulation Present 07/31/16 07:08 Platelet Estimate Normal (NORMAL) 08/04/16 08:15 RBC Morphology Normal 08/04/16 08:15 Anisocytosis (manual) Slight 07/31/16 07:08 PT 12.0 SECONDS (9.7-12.2) 07/31/16 07:08 INR 1.1 07/31/16 07:08 APTT 29 SECONDS (21-34) 07/31/16 07:08 D-Dimer, Quantitative < 200 ng/mlDDU (0-243) 07/30/16 21:46 Puncture Site Rra 07/30/16 20:08 pCO2 33 mm/Hg (35-45) L 07/30/16 20:08 pO2 74 mm/Hg (80-100) L 07/30/16 20:08 HCO3 23.1 mmol/L (21-28) 07/30/16 20:08 ABG pH 7.42 (7.35-7.45) 07/30/16 20:08 ABG Total CO2 22.4 mmol/L (22-28) 07/30/16 20:08 ABG O2 Saturation 96.6 % (95-98) 07/30/16 20:08 ABG Base Excess -2.3 mmol/L (-2.0-3.0) L 07/30/16 20:08 Zachary Test + 07/30/16 20:08 ABG Potassium 3.7 mmol/L (3.6-5.2) 07/30/16 20:08 A-a O2 Difference 34.0 mm/Hg 07/30/16 20:08 Respiratory Index 0.5 07/30/16 20:08 Sodium 140.0 mmol/l (132-148) 07/30/16 20:08 Chloride 106.0 mmol/L (98-107) 07/30/16 20:08 Glucose 307 mg/dl (75-110) H 07/30/16 20:08 Lactate 4.9 mmol/L (0.7-2.1) H* 07/30/16 20:08 Liter Flow 0 07/30/16 20:08 FiO2 21.0 % 07/30/16 20:08 Crit Value Called To Carson cunningham 07/30/16 20:08 Crit Value Called By Sky 07/30/16 20:08 Crit Value Read Back Y 07/30/16 20:08 Blood Gas Notified Time 201107/30/16 20:08 Sodium 132 mmol/L (132-148) 08/04/16 08:15 Potassium 5.2 mmol/L (3.6-5.2) 08/04/16 08:15 Chloride 91 mmol/L (98-107) L 08/04/16 08:15 Carbon Dioxide 29 mmol/L (22-30) 08/04/16 08:15 Anion Gap 17 (10-20) 08/04/16 08:15 BUN 28 mg/dL (9-20) H 08/04/16 08:15 Creatinine 0.7 MG/DL (0.8-1.5) L 08/04/16 08:15 Est GFR ( Amer) > 60 08/04/16 08:15 Est GFR (Non-Af Amer) > 60 08/04/16 08:15 POC Glucose (mg/dL) > 500 mg/dL (65-110) H* 08/04/16 11:13 Random Glucose 382 mg/dL (75-110) H 08/04/16 08:15 Calcium 10.1 mg/dl (8.6-10.4) 08/04/16 08:15 Magnesium 2.5 mg/dL (1.6-2.3) H 07/30/16 19:47 Total Bilirubin 0.6 mg/dL (0.2-1.3) 08/04/16 08:15 AST 14 U/L (17-59) L 08/04/16 08:15 ALT 30 U/L (21-72) 08/04/16 08:15 Alkaline Phosphatase 121 U/L (38-126) 08/04/16 08:15 Total Creatine Kinase 40 U/L (55-170) L 08/01/16 13:02 CK-MB (Mass) 0.97 ng/mL (0.0-3.38) 08/01/16 13:02 Troponin I, Quant < 0.0120 ng/mL (0.00-0.120) 08/01/16 13:02 Total Protein 7.3 g/dL (6.3-8.3) 08/04/16 08:15 Albumin 4.2 g/dL (3.5-5.0) 08/04/16 08:15 Globulin 3.1 gm/dL (2.2-3.9) 08/04/16 08:15 Albumin/Globulin Ratio 1.4 (1.0-2.1) 08/04/16 08:15 Arterial Blood Potassium 3.7 mmol/L (3.6-5.2) 07/30/16 20:08 Urine Color Straw (YELLOW) 07/30/16 20:03 Urine Clarity Clear (Clear) 07/30/16 20:03 Urine pH 6.0 (5.0-8.0) 07/30/16 20:03 Ur Specific [place] 1.030 (1.003-1.030) 07/30/16 20:03 Urine Protein Negative mg/dL (NEGATIVE) 07/30/16 20:03 Urine Glucose (UA) 3+ mg/dL (Normal) H 07/30/16 20:03 Urine Ketones Trace mg/dL (NEGATIVE) 07/30/16 20:03 Urine Blood Negative (NEGATIVE) 07/30/16 20:03 Urine Nitrate Negative (NEGATIVE) 07/30/16 20:03 Urine Bilirubin Negative (NEGATIVE) 07/30/16 20:03 Urine Urobilinogen Normal mg/dL (0.2-1.0) 07/30/16 20:03 Ur Leukocyte Esterase Neg Yovanny/uL (Negative) 07/30/16 20:03 Urine WBC (Auto) 1 /hpf (0-5) 07/30/16 20:03 Ur Squamous Epith Cells < 1 /hpf (0-5) 07/30/16 20:03 Urine Bacteria Rare (<OCC) 07/30/16 20:03 Urine Opiates Screen Negative (NEGATIVE) 07/30/16 20:07 Urine Methadone Screen Negative (NEGATIVE) 07/30/16 20:07 Ur Barbiturates Screen Negative (NEGATIVE) 07/30/16 20:07 Ur Phencyclidine Scrn Negative (NEGATIVE) 07/30/16 20:07 Ur Amphetamines Screen Negative (NEGATIVE) 07/30/16 20:07 U Benzodiazepines Scrn Negative (NEGATIVE) 07/30/16 20:07 U Oth Cocaine Metabols Negative (NEGATIVE) 07/30/16 20:07 U Cannabinoids Screen Positive (NEGATIVE) 07/30/16 20:07 Alcohol, Quantitative 36 mg/dl (0-10) H 07/30/16 20:07 Attending/Attestation - Attestation I have personally seen and examined this patient.: Yes I have fully participated in the care of the patient.: Yes I have reviewed all pertinent clinical information, including history, physical exam and plan: Yes Notes (Text): Medical Attending: Patient was seen and examined by me. Agree with the above note by the resident. The patient was still reporting the migraine headaches. As mentioned before he gets only temporary relief with the sumatriptan use. He will also be sent with a small dose of Tramadol Also he is ambulating on his own without assistance but he still has some wheezing. He will need to go with a tapering dose of steroids as well as inhaled long acting and short acting inhalers. It should be mentioned that the patient seems to go to many hospitals. There were records sent in from [facility] showing recent MRI of the brain and also he was recently at [facility] as well with recent CT. Payam Hackett
[2016-08-04 07:24] VITALS: BP 125/80; PULSE 64; TEMP 97.7; O2SAT 98
[2016-08-04] MEDS: Budesonide 0.5 mg/2 ml Inhal Susp UD INH SCH (07:53)
[2016-08-04] MEDS: (Novolin R) Insulin Human Regular 100 units/ml vial SC SCH ×2 (08:13→11:35)
[2016-08-04 08:24] LABS: BASO % 0.2 % (0.0-2.0); HEMATOCRIT 49.8 % (35.0-51.0); LYMPH # 1.1 K/uL (1.0-4.3); LYMPH % 5.7 % (20.0-40.0); MEAN CELL VOLUME 96.4 fL (80.0-94.0); MEAN CORPUSCULAR HEMOGLOBIN 32.7 pg (27.0-31.0); MEAN PLATELET VOLUME 7.9 fL (7.2-11.7); MONO # 1.3 K/uL (0.0-0.8); MONO % 6.7 % (0.0-10.0); PLATELET COUNT 259 K/uL (130-400); RED CELL DISTRIBUTION WIDTH 12.9 % (11.5-14.5); WHITE BLOOD COUNT 20.1 K/uL (4.8-10.8)
[2016-08-04 08:37] LABS: CHLORIDE 91 mmol/L (98-107); POTASSIUM 5.2 mmol/L (3.6-5.2); SODIUM 132 mmol/L (132-148)
[2016-08-04 08:40] LABS: ALB/GLOB RATIO 1.4 (1.0-2.1); ALKALINE PHOSPHATASE 121 U/L (38-126); ALT/SGPT 30 U/L (21-72); AST/SGOT 14 U/L (17-59); BILIRUBIN,TOTAL 0.6 mg/dL (0.2-1.3); BLOOD UREA NITROGEN 28 mg/dL (9-20); CARBON DIOXIDE 29 mmol/L (22-30); GFR AFRICAN-AMERICAN > 60; GLUCOSE,RANDOM 382 mg/dL (75-110); TOTAL PROTEIN 7.3 g/dL (6.3-8.3)
[2016-08-04 08:41] LABS: CALCIUM 10.1 mg/dl (8.6-10.4)
[2016-08-04] MEDS: Enoxaparin 40 mg Syringe SC SCH (09:27)
[2016-08-04] MEDS: Pantoprazole 40 mg EC Tab PO SCH (09:27)
[2016-08-04] MEDS: Verapamil 120 mg ER Tab PO SCH (09:27)
[2016-08-04 09:53] LABS: NEUTROPHIL 84 % (50-75); TOTAL CELLS COUNTED 100
[2016-08-04] MEDS ORDERED: (Novolin R) Insulin Human Regular 100 units/ml vial SC ONE (11:45)
--- NOTE | 2016-08-25 10:59 | CARD ---
APPROVED REPORT EKG Measurement Heart [id number] <Conclusion> Normal sinus rhythm Normal ECG
== END 2016-08-04 13:30 | disposition home or self-care (01) | DRG 88 ==
LOC: C.ER 19:12 → C.9E 21:41 → C.3T 22:26
PROVIDERS: ADMIT Family Medicine; ATTEND Family Medicine
DX: J44.1 Chronic obstructive pulmonary disease with (acute) exacerbation (principal); J45.901 Unspecified asthma with (acute) exacerbation; G43.109 Migraine with aura, not intractable, without status migrainosus; E11.9 Type 2 diabetes mellitus without complications; F12.90 Cannabis use, unspecified, uncomplicated; Z79.4 Long term (current) use of insulin; R42 Dizziness and giddiness; F17.210 Nicotine dependence, cigarettes, uncomplicated; H53.149 Visual discomfort, unspecified

== ENCOUNTER 2016-08-25 10:15 | Inpatient (IN) | payer OTHER ==
[2016-08-25 10:15] VITALS: BMI 33.5
[2016-08-25] MEDS ORDERED: Albuterol-Ipratrop 3 mg / 0.5 (3 ml) UD IH STA (10:40)
[2016-08-25] MEDS ORDERED: Albuterol-Ipratrop 3 mg / 0.5 (3 ml) UD ONE ×2 (11:10→11:40)
[2016-08-25] MEDS ORDERED: Dexamethasone 4 mg/1 ml ONE (11:11)
--- NOTE | 2016-08-25 11:16 | RAD ---
HISTORY: dyspnea COMPARISON: 07/30/2016 TECHNIQUE: Chest PA and lateral FINDINGS: LUNGS: No active pulmonary disease. PLEURA: No significant pleural effusion identified. No pneumothorax apparent. CARDIOVASCULAR: Normal. OSSEOUS STRUCTURES: No significant abnormalities. VISUALIZED UPPER ABDOMEN: Normal. OTHER FINDINGS: None. IMPRESSION: No active disease.
[2016-08-25 11:23] LABS: BASO # 0.1 K/uL (0.0-0.2); BASO % 0.7 % (0.0-2.0); EOS % 0.4 % (0.0-4.0); LYMPH # 2.6 K/uL (1.0-4.3); LYMPH % 34.1 % (20.0-40.0); MEAN CELL VOLUME 94.6 fL (80.0-94.0); MEAN CORPUSCULAR HEMOGLOBIN 32.6 pg (27.0-31.0); MEAN CORPUSCULAR HGB CONC 34.4 g/dL (33.0-37.0); MEAN PLATELET VOLUME 7.6 fL (7.2-11.7); MONO # 0.7 K/uL (0.0-0.8); MONO % 9.6 % (0.0-10.0); NEUT # 4.1 K/uL (1.8-7.0); NEUT % 55.2 % (50.0-75.0); RBC 3.7 Mil/uL (4.40-5.90); RED CELL DISTRIBUTION WIDTH 12.5 % (11.5-14.5)
[2016-08-25 11:26] LABS: WHITE BLOOD COUNT 7.5 K/uL (4.8-10.8)
--- NOTE | 2016-08-25 11:29 | C.PDOC ---
History Of Present Illness 41-year-old male, PMHx includes COPD, Hypertension and Diabetes, presents to the emergency department with complaints of shortness of breath for the past several months. Patient states symptoms are similar to previous copd exacerbations. Patient has a Hx of multiple prior visits and admissions for same. He is not taking any medications. Patient sent directly to ER from clinic. Denies chest pain or fevers. Time Seen by Provider: 08/25/16 10:25 Chief Complaint (Nursing): Shortness Of Breath History Per: Patient History/Exam Limitations: no limitations Onset/Duration Of Symptoms: Days Current Symptoms Are (Timing): Still Present Past Medical History Reviewed: Historical Data, Nursing Documentation, Vital Signs Vital Signs: Last Vital Signs Temp 98.3 F 08/25/16 10:18 Pulse 92 H 08/25/16 12:59 Resp 21 08/25/16 12:59 BP 130/77 08/25/16 12:59 Pulse Ox 95 08/25/16 12:59 - Medical History PMH: Asthma, COPD, Diabetes (type II), HTN, Migraine Denies: Chronic Kidney Disease - [facility] Procedures INTRODUCE OF OTH THERAP SUBST INTO RESP TRACT, VIA OPENING (08/14/16) OTHER MISC PROCEDURE (12/21/99) TETANUS TOXOID ADMINIST (12/16/06) Family History: States: No Known Family Hx - Social History Hx Tobacco Use: Yes Hx Alcohol Use: No Hx Substance Use: No (denies) - Immunization History Hx Tetanus Toxoid Vaccination: No Hx Influenza Vaccination: No Hx Pneumococcal Vaccination: No Review Of Systems Except As Marked, All Systems Reviewed And Found Negative. Constitutional: Negative for: Fever, Chills Cardiovascular: Negative for: Chest Pain Respiratory: Positive for: Shortness of Breath. Negative for: Cough Gastrointestinal: Negative for: Vomiting Musculoskeletal: Negative for: Back Pain Physical Exam - Physical Exam Additional Physical Exam Comments: Constitutional: Appears uncomfortable. Head: Normocephalic. Atraumatic. Eyes: PERRL. ENT: Moist mucous membranes. Neck: Supple. Cardiovascular: Regular rate. Radial pulses 2+ bilaterally. Chest: No tenderness. Respiratory: B/L wheezing, expiratory. Mild accessory muscle use. GI: Soft. Nontender. Nondistended. Back: No CVA tenderness. Musculoskeletal: No tenderness or swelling of extremities. Skin: No rashes. Neurologic: Alert, no focal deficit. ED Course And Treatment - Laboratory Results Result Diagrams: 08/25/16 11:25 08/25/16 10:39 O2 Sat by Pulse Oximetry: 100 Medical Decision Making Medical Decision Making: CXR no acute disease. Duonebs and decadron administered. Patient continues to have shortness of breath, appears to be in some distress. Patient with no insurance and unable to fill medications for chronic use. Will require further hospitalization. Disposition Discussed With Dr.: Javier Finley Doctor Will See Patient In The: Hospital - Disposition Disposition: HOSPITALIZED Disposition Time: 12:05 Condition: FAIR - Clinical Impression Clinical Impression: COPD exacerbation - PA / [employer] GRINDER / Resident Statement MD/DO has reviewed & agrees with the documentation as recorded. - Scribe Statement The provider has reviewed the documentation as recorded by the Scribe (Yaritza Hinojosa) All medical record entries made by the Scribe were at my direction and personally dictated by me. I have reviewed the chart and agree that the record accurately reflects my personal performance of the history, physical exam, medical decision making, and the department course for this patient. I have also personally directed, reviewed, and agree with the discharge instructions and disposition.
[2016-08-25 11:37] LABS: ALBUMIN 3.2 g/dL (3.5-5.0)
[2016-08-25 11:40] LABS: ALB/GLOB RATIO 1.3 (1.0-2.1); AST/SGOT 46 U/L (17-59); GFR AFRICAN-AMERICAN > 60; GFR NON-AFRICAN AMERICAN > 60
[2016-08-25 11:41] LABS: ALT/SGPT 69 U/L (21-72); BLOOD UREA NITROGEN 13 mg/dL (9-20); CALCIUM 8.1 mg/dl (8.6-10.4)
--- NOTE | 2016-08-25 13:58 | CP.PCM.HP ---
<YarongabyreyJusMaria Luisa - Last Filed: 08/25/16 16:05> History of Present Illness - History of Present Illness History of Present Illness: CC: "I feel like I can't breath all the time" HPI: Patient is a 41 year old male with PMHx of COPD, DM and migraines who presents with complaint of shortness of breath. The patient had an appointment at the [facility] and walked 2 hours this morning. When patient arrived at the [facility] he was sent up to ED for evaluation of respiratory distress. Patient has had multiple hospital admissions for COPD exacerbation since 05/2016. Patient complains that his COPD has been uncontrolled and that he is chronically wheezing and coughing up sputum. Patient states that his COPD improves when he is in the hospital but once he is discharged and the steroids wear off his breathing becomes worse. Dyspnea is worse on exertion. Patient is not using inhaler at home at this time. The patient's diabetes was found to be uncontrolled and the patient was started on insulin per director of marketing operations on one of his recent admissions. The patient states that he has been discharged with scripts for his medications but that he has been unable to fill them due to their expensive cost. Patient has been uninsured and only recently obtained [facility]. Patient is tearful during his exam and expresses fear and anxiety about his medical condition. Patient states that he is afraid of losing his vision from his uncontrolled diabetes and is afraid of depending on home oxygen eventually due to his COPD. Patient denies suicidal ideations at this time. Patient complains about neuropathic pain in his bilateral LE. Patient also complains of migraine during examination with photophobia. Patient 's head pain is located frontal, rated 10/10. Denies fever, chills, nausea, vomiting, focal weakness, generalized weakness, palpitations, abdominal pain, diarrhea, back pain, change in vision, dizziness, orthopnea, and swelling. The patient was last discharged from the hospital on 08/19/16. Patient has not been on medication since discharge. Patient should have been on the following medications according to previous discharge orders: Fioricet 1 tab q4h prn headache Imitrex 100mg PO daily Advair 500/50 1 puff INH q12h Duonebs 3ml IN q6h prn Glipizide 10mg PO BID Metformin 1000mg PO BID Humulin 20u SC AM, 40u SC HS Humalog 20u TID with meals Singulair 10mg PO HS PMD: none PMHx: COPD, DM type 2, Migraines Surg Hx: Denies Fam Hx: Mom- from cancer; Dad- COPD, CAD Social hx: smokes 1/2 to 1 pack per day for 20 years, exposure to second hand smoke in house since childhood; Drinks 2 16 oz beers twice per week; smokes marijuana occasionally. Currently unemployed and homeless, patient is living with friends. Allergies: no known drug allergies Present on Admission - Present on Admission Any Indicators Present on Admission: Yes History of Uncontrolled Diabetes: Yes Review of Systems - Constitutional Constitutional: As Per HPI. absent: Chills, Fatigue - EENT Eyes: As Per HPI. absent: Blurred Vision, Change in Vision Ears: As Per HPI. absent: Dizziness Nose/Mouth/Throat: As Per HPI. absent: Sore Throat - Cardiovascular Cardiovascular: As Per HPI. absent: Chest Pain, Dyspnea on Exertion, Leg Edema , Palpitations, Pedal Edema - Respiratory Respiratory: As Per HPI, Cough, Dyspnea, Dyspnea on Exertion, Wheezing, Chest Congestion, Change in Mucous Color. absent: Hemoptysis, Snoring, Stridor, Pain with Coughing - Gastrointestinal Gastrointestinal: As Per HPI. absent: Abdominal Pain, Bloating, Constipation, Diarrhea, Nausea, Vomiting - Genitourinary Genitourinary: As Per HPI. absent: Change in Urinary Stream, Difficulty Urinating - Integumentary Integumentary: As Per HPI - Neurological Neurological: As Per HPI, Tingling (lower extremities ). absent: Abnormal Gait , Dizziness, Frequent Falls - Psychiatric Psychiatric: As Per HPI, Anxiety, Depression. absent: Homicidal Ideation, Suicidal Ideation - Endocrine Endocrine: As Per HPI. absent: Change in Body Appearance Past Patient History - Infectious Disease Hx of Infectious Diseases: None - Past Medical History & Family History Past Medical History?: Yes - Past Social History Smoking Status: Heavy Smoker > 10 Cigarettes Daily - CARDIAC Hx Hypertension: Yes - PULMONARY Hx Asthma: Yes Hx Chronic Obstructive Pulmonary Disease (COPD): Yes - NEUROLOGICAL Hx Migraine: Yes - HEENT Hx HEENT Problems: No - RENAL Hx Chronic Kidney Disease: No - ENDOCRINE/METABOLIC Hx Endocrine Disorders: Yes Hx Diabetes Mellitus Type 2: Yes - HEMATOLOGICAL/ONCOLOGICAL Hx Blood Disorders: No - MUSCULOSKELETAL/RHEUMATOLOGICAL Hx Falls: No - GASTROINTESTINAL Hx Gastrointestinal Disorders: No - GENITOURINARY/GYNECOLOGICAL Hx Genitourinary Disorders: No - PSYCHIATRIC Hx Substance Use: No (denies) - SURGICAL HISTORY Hx Surgeries: No - ANESTHESIA Hx Anesthesia: No Hx Anesthesia Reactions: No Meds Allergies/Adverse Reactions: Allergies Allergy/AdvReac Type Severity Reaction Status Date / Time No Known Allergies Allergy Verified 08/21/16 03:50 Physical Exam - Constitutional Appears: Toxic, No Acute Distress - Head Exam Head Exam: ATRAUMATIC, NORMOCEPHALIC - Eye Exam Eye Exam: EOMI, Normal appearance, PERRL - ENT Exam ENT Exam: Mucous Membranes Moist, Normal Exam - Neck Exam Neck exam: Positive for: Normal Inspection - Respiratory Exam Respiratory Exam: Rhonchi, Wheezes. absent: Accessory Muscle Use, Chest Wall Tenderness, Clear to Auscultation Bilateral, Rales Additional comments: Patient breathing normally on room air, speaking in full sentences, no accessory muscle use - Cardiovascular Exam Cardiovascular Exam: REGULAR RHYTHM, +S1, +S2. absent: Tachycardia, Irregular Rhythm, Systolic Murmur - GI/Abdominal Exam GI & Abdominal Exam: Normal Bowel Sounds, Soft. absent: Distended, Firm, Guarding, Tenderness - Extremities Exam Extremities exam: Positive for: normal inspection, pedal pulses present. Negative for: calf tenderness, joint swelling, pedal edema - Back Exam Back exam: NORMAL INSPECTION - Neurological Exam Neurological exam: Alert, CN II-XII Intact, Oriented x3 - Psychiatric Exam Psychiatric exam: Anxious, Depressed (tearful ) - Skin Skin Exam: Dry, Intact, Normal Color, Warm Results - Vital Signs Recent Vital Signs: Last Vital Signs Temp 98.3 F 08/25/16 10:18 Pulse 92 H 08/25/16 12:59 Resp 21 08/25/16 12:59 BP 130/77 08/25/16 12:59 Pulse Ox 95 08/25/16 12:59 - Labs Result Diagrams: 08/25/16 11:25 08/25/16 10:39 Assessment & Plan - Assessment and Plan (Free Text) Assessment: 1. Uncontrolled COPD Given duonebs x1 and decadron inj in ED with symptom improvement SpO2 100% on room air Chest X-ray: no active disease Duonebs 3ml INH q6h wayne Advair 500/50 INH q12h Singulair 10mg PO HS Mucinex 600mg PO BID Admit to telemetry f/u sputum culture 2. Uncontrolled Diabetes Mellitus 08/13/16 HgA1C 9.2 bs 307 on admission Glipizide 10mg PO BID Metformin 1000mg PO BID Humulin 20u SC AM, 40u SC HS Humalog 20u TID with meals Patient not taking home medications. Accuchecks 3. Migraines Fioricet q6h prn migraine According to note on previous visit: "Patient showed paper records and medical records were retrieved from [facility] [place]: Head CT w/o contrast, CTA of Head and Neck, MRI brain without contrast, MRA head and neck all done on 07/22/16 at two hospitals [facility] and [facility]. He had these examinations done at both institutions on the same day. All results were negative." 4. Depression Denies SI/HI Consulted psychiatry- Dr Dozier- nessa f/u recommendations 5. Prophylactic measures SCDs Lovenox 40mg SC daily Protonix 40mg PO daily track worker consult- discharge planning for homeless patient <Javier Finley - Last Filed: 08/26/16 13:20> Results - Vital Signs Recent Vital Signs: Last Vital Signs Temp 98 F 08/25/16 23:05 Pulse 69 08/26/16 04:00 Resp 20 08/25/16 23:05 BP 136/78 08/25/16 23:05 Pulse Ox 99 08/25/16 23:05 - Labs Result Diagrams: 08/26/16 06:58 08/26/16 06:58 Labs: Laboratory Results - last 24 hr 08/25/16 08/26/16 08/26/16 21:49 06:43 06:58 WBC 9.4 RBC 4.18 L Hgb 13.5 Hct 40.0 MCV 95.6 H MCH 32.3 H MCHC 33.7 RDW 12.4 Plt Count 179 MPV 8.1 Neut % (Auto) 87.1 H Lymph % (Auto) 8.8 L Hardeman % (Auto) 4.0 Eos % (Auto) 0.0 Baso % (Auto) 0.1 Neut # 8.2 H Lymph # 0.8 L Hardeman # 0.4 Eos # 0.0 Baso # 0.0 Neutrophils % (Manual) 88 H Lymphocytes % (Manual) 9 L Monocytes % (Manual) 3 Platelet Estimate Normal RBC Morphology Normal Sodium Potassium Chloride Carbon Dioxide Anion Gap BUN Creatinine Est GFR ( Amer) Est GFR (Non-Af Amer) POC Glucose (mg/dL) 269 H 281 H Random Glucose Calcium 08/26/16 08/26/16 06:58 12:05 WBC RBC Hgb Hct MCV MCH MCHC RDW Plt Count MPV Neut % (Auto) Lymph % (Auto) Hardeman % (Auto) Eos % (Auto) Baso % (Auto) Neut # Lymph # Hardeman # Eos # Baso # Neutrophils % (Manual) Lymphocytes % (Manual) Monocytes % (Manual) Platelet Estimate RBC Morphology Sodium 134 Potassium 4.4 Chloride 101 Carbon Dioxide 24 Anion Gap 13 BUN 15 Creatinine 0.5 L Est GFR ( Amer) > 60 Est GFR (Non-Af Amer) > 60 POC Glucose (mg/dL) 338 H Random Glucose 301 H Calcium 8.9 Attending/Attestation - Attestation I have personally seen and examined this patient.: Yes I have fully participated in the care of the patient.: Yes I have reviewed all pertinent clinical information: Yes Notes (Text): 08/26/16 13:20 Patient was seen and examined at bedside with the resident We will admit the patient for COPD exacerbation next and patient also has uncontrolled vasculitis We will start the patient on his previous regimen of insulin and the oral hypoglycemic agents I discussed the plan of care with the resident and agree with the history and physical and assessment/plan but the resident.
[2016-08-25] MEDS ORDERED: Potassium Chloride 20 mEq ER Tab PO STA (14:12)
[2016-08-25] MEDS ORDERED: Potassium Chloride 20 mEq ER Tab PO ONE ×3 (14:14→18:00)
[2016-08-25] MEDS ORDERED: (Novolin R) Insulin Human Regular 100 units/ml vial SC ONE (17:03)
[2016-08-25] MEDS ORDERED: MethylPREDNISolone 40 mg Vial ONE (17:13)
[2016-08-25] MEDS: MethylPREDNISolone 40 mg Vial IVP SCH (17:14)
[2016-08-25] MEDS: guaiFENesin 600 mg ER Tab PO SCH (17:55)
[2016-08-25] MEDS: Apap-Butalbital-Caffeine 325-50-40mg Tab PO PRN (19:50)
[2016-08-25] MEDS ORDERED: Fluticasone-Salmeterol 500-50mcg Diskus IH SCH (22:00)
[2016-08-25] MEDS: (Novolin N) Insulin Human Isophane (NPH) 100 u/ml 10 ml vial SC SCH (23:14)
[2016-08-25] MEDS: (Novolin R) Insulin Human Regular 100 units/ml vial SC SCH (23:15)
[2016-08-26] MEDS: MethylPREDNISolone 40 mg Vial IVP SCH ×2 (02:20→18:30)
[2016-08-26] MEDS: Albuterol-Ipratrop 3 mg / 0.5 (3 ml) UD INH SCH ×4 (05:04→19:51)
[2016-08-26 07:10] LABS: BASO % 0.1 % (0.0-2.0); HEMOGLOBIN 13.5 g/dL (12.0-18.0); LYMPH # 0.8 K/uL (1.0-4.3); LYMPH % 8.8 % (20.0-40.0); MEAN CELL VOLUME 95.6 fL (80.0-94.0); MEAN CORPUSCULAR HEMOGLOBIN 32.3 pg (27.0-31.0); MEAN CORPUSCULAR HGB CONC 33.7 g/dL (33.0-37.0); MEAN PLATELET VOLUME 8.1 fL (7.2-11.7); MONO # 0.4 K/uL (0.0-0.8); NEUT # 8.2 K/uL (1.8-7.0); NEUT % 87.1 % (50.0-75.0); PLATELET COUNT 179 K/uL (130-400); RBC 4.18 Mil/uL (4.40-5.90); RED CELL DISTRIBUTION WIDTH 12.4 % (11.5-14.5); WHITE BLOOD COUNT 9.4 K/uL (4.8-10.8)
[2016-08-26 07:21] LABS: GFR AFRICAN-AMERICAN > 60; GFR NON-AFRICAN AMERICAN > 60
[2016-08-26 07:22] LABS: BLOOD UREA NITROGEN 15 mg/dL (9-20); CALCIUM 8.9 mg/dl (8.6-10.4)
[2016-08-26] MEDS: (Novolin R) Insulin Human Regular 100 units/ml vial SC SCH ×4 (08:36→21:00)
[2016-08-26] MEDS: Enoxaparin 40 mg Syringe SC SCH (11:19)
[2016-08-26] MEDS: guaiFENesin 600 mg ER Tab PO SCH ×2 (11:19→20:41)
[2016-08-26] MEDS: (Novolin N) Insulin Human Isophane (NPH) 100 u/ml 10 ml vial SC SCH ×2 (11:20→22:36)
[2016-08-26] MEDS: Pantoprazole 40 mg EC Tab PO SCH (11:20)
[2016-08-26 11:26] LABS: LYMPHOCYTE 9 % (20-40); MONOCYTE 3 % (0-10); NEUTROPHIL 88 % (50-75); PLATELET ESTIMATE NORMAL (NORMAL); TOTAL CELLS COUNTED 100
[2016-08-26] MEDS: Apap-Butalbital-Caffeine 325-50-40mg Tab PO PRN (20:23)
--- NOTE | 2016-08-26 21:14 | CP.PCM.PN ---
<Ángel Chavez - Last Filed: 08/26/16 21:11> Subjective - Date & Time of Evaluation Date of Evaluation: 08/26/16 Time of Evaluation: 10:00 - Subjective Subjective: PGY2 on medicine Dr. Finley service: Pt seen and examined at bedside this morning. Pt reports resolution of headache after Imitrex. Pt requests regular food because he had enough of ADA diet. Pt still wheezing and productive cough. Pt was very anxious about his medical conditions. Objective - Vital Signs/Intake and Output Vital Signs (last 24 hours): Temp Pulse Resp BP Pulse Ox 98 F 80 20 126/73 97 08/25/16 23:05 08/26/16 17:00 08/26/16 17:00 08/26/16 17:00 08/26/16 17:00 - Medications Medications: Current Medications Acetaminophen/Butalbital/Caffeine (Fioricet) 1 tab PO Q6H PRN PRN Reason: Headache Last Admin: 08/26/16 20:23 Dose: 1 tab Albuterol/Ipratropium (Duoneb 3 Mg/0.5 Mg (3 Ml) Ud) 3 ml INH RQ6 [facility] Last Admin: 08/26/16 19:51 Dose: 3 ml Enoxaparin Sodium (Lovenox) 40 mg SC DAILY [facility] Last Admin: 08/26/16 11:19 Dose: 40 mg Glipizide (Glucotrol) 10 mg PO BIDAC [facility] Last Admin: 08/26/16 20:41 Dose: 10 mg Guaifenesin (Mucinex La) 600 mg PO BID [facility] Last Admin: 08/26/16 20:41 Dose: 600 mg Insulin Human NPH (Novolin N) 20 unit SC QAM [facility] Last Admin: 08/26/16 11:20 Dose: 20 unit Insulin Human NPH (Novolin N) 40 unit SC HS [facility] Last Admin: 08/25/16 23:14 Dose: 40 unit Insulin Human Regular (Novolin R) 0 unit SC ACHS [facility] PRN Reason: Protocol Last Admin: 08/26/16 16:30 Dose: Not Given Metformin HCl (Glucophage) 1,000 mg PO BIDCC [facility] Last Admin: 08/26/16 20:39 Dose: 1,000 mg Methylprednisolone (Solu-Medrol) 40 mg IVP Q8H [facility] Last Admin: 06/24/17 18:30 Dose: 40 mg Montelukast Sodium (Singulair) 10 mg PO HS [facility] Last Admin: 08/25/16 23:13 Dose: 10 mg Pantoprazole Sodium (Protonix Ec Tab) 40 mg PO DAILY [facility] Last Admin: 08/26/16 11:20 Dose: 40 mg Fluticasone/Salmeterol (Advair Diskus 500/50) 1 puff IH RQ12 [facility] - Labs Labs: 08/26/16 06:58 08/26/16 06:58 - Constitutional Appears: Non-toxic, No Acute Distress - Head Exam Head Exam: NORMOCEPHALIC - Eye Exam Eye Exam: Normal appearance Pupil Exam: NORMAL ACCOMODATION - Respiratory Exam Respiratory Exam: Rales, Rhonchi, Wheezes, NORMAL BREATHING PATTERN - Cardiovascular Exam Cardiovascular Exam: REGULAR RHYTHM, +S1, +S2. absent: Gallop, Rubs - GI/Abdominal Exam GI & Abdominal Exam: Soft, Normal Bowel Sounds. absent: Tenderness - Neurological Exam Neurological Exam: Alert, Awake, Oriented x3 - Psychiatric Exam Psychiatric exam: Agitated, Anxious - Skin Skin Exam: Intact Assessment and Plan - Assessment and Plan (Free Text) Assessment: 1. Uncontrolled COPD Given duonebs x1 and decadron inj in ED with symptom improvement SpO2 100% on room air Chest X-ray: no active disease Duonebs 3ml INH q6h wayne Advair 500/50 INH q12h Singulair 10mg PO HS Mucinex 600mg PO BID Solumedrol 40mg IVP q8H Admit to telemetry f/u sputum culture 2. Uncontrolled Diabetes Mellitus 08/13/16 HgA1C 9.2 bs 307 on admission Glipizide 10mg PO BID Metformin 1000mg PO BID Humulin 20u SC AM, 40u SC HS Humalog 20u TID with meals Patient not taking home medications. Accuchecks 3. Migraines Fioricet q6h prn migraine. Imitrex given last night with resolution of symptom. According to note on previous visit: "Patient showed paper records and [place] [facility] [place] contrast, CTA of Head and Neck, MRI brain without contrast, MRA head and neck all done on 07/22/16 at two hospitals [facility] and [facility] He had these examinations done at both institutions on the same day. All results were negative." 4. Depression Denies SI/HI Consulted psychiatry- Dr Dozier- nessa f/u recommendations 5. Prophylactic measures SCDs Lovenox 40mg SC daily Protonix 40mg PO daily emergency worker consult- discharge planning for homeless patient <Javier Finley - Last Filed: 09/04/16 17:03> Objective - Vital Signs/Intake and Output Vital Signs (last 24 hours): Temp Pulse Resp BP Pulse Ox 98 F 107 H 20 122/82 97 08/31/16 15:15 09/01/16 16:00 09/01/16 16:00 09/01/16 16:00 09/01/16 16:00 - Labs Labs: 09/01/16 10:26 09/01/16 10:26 Attending/Attestation - Attestation I have personally seen and examined this patient.: Yes I have fully participated in the care of the patient.: Yes I have reviewed all pertinent clinical information, including history, physical exam and plan: Yes Notes (Text): 09/04/16 17:03 Patient was seen and examined at bedside with the resident This a late computer entry I discussed the plan of care with the resident and agree with the history and physical and assessment/plan by the resident.
[2016-08-27] MEDS ORDERED: DiphenhydrAMINE 50 mg/ml Inj IVP STA (00:21)
[2016-08-27] MEDS: MethylPREDNISolone 40 mg Vial IVP SCH ×3 (00:36→17:45)
[2016-08-27] MEDS: Albuterol-Ipratrop 3 mg / 0.5 (3 ml) UD INH SCH ×4 (01:09→19:50)
--- NOTE | 2016-08-27 06:25 | CP.PCM.PN ---
<Magda Hayden - Last Filed: 08/27/16 06:21> Subjective - Date & Time of Evaluation Date of Evaluation: 08/27/16 Time of Evaluation: 00:15 - Subjective Subjective: PGY1 on medicine Dr. Finley service: Patient seen and examined at bedside this morning. Patient states he has a headache that it gets better with Imitrex but if not the headache is constant. Patient states the headache is all over his head and sometimes feels like pin pressure. Patient requests regular food because he had enough of the diabetic diet. Patient states if he doesn't get regular food he will just continue eating food from the vending machines. Patient is very anxious about his medical conditions including his uncontrolled diabetes because outside of his hospitalizations he cannot afford his medications. Objective - Vital Signs/Intake and Output Vital Signs (last 24 hours): Temp Pulse Resp BP Pulse Ox 98 F 74 20 134/87 95 08/26/16 23:05 08/26/16 23:05 08/26/16 23:05 08/26/16 23:05 08/26/16 23:05 Intake and Output: 08/26/16 08/27/16 18:59 06:59 Intake Total 600 Balance 600 - Medications Medications: Current Medications Acetaminophen/Butalbital/Caffeine (Fioricet) 1 tab PO Q6H PRN PRN Reason: Headache Last Admin: 08/26/16 20:23 Dose: 1 tab Albuterol/Ipratropium (Duoneb 3 Mg/0.5 Mg (3 Ml) Ud) 3 ml INH RQ6 [facility] Last Admin: 08/27/16 01:09 Dose: Not Given Enoxaparin Sodium (Lovenox) 40 mg SC DAILY [facility] Last Admin: 08/26/16 11:19 Dose: 40 mg Glipizide (Glucotrol) 10 mg PO BIDAC [facility] Last Admin: 08/26/16 20:41 Dose: 10 mg Guaifenesin (Mucinex La) 600 mg PO BID [facility] Last Admin: 08/26/16 20:41 Dose: 600 mg Insulin Human NPH (Novolin N) 20 unit SC QAM [facility] Last Admin: 08/26/16 11:20 Dose: 20 unit Insulin Human NPH (Novolin N) 40 unit SC HS [facility] Last Admin: 08/26/16 22:36 Dose: 40 unit Insulin Human Regular (Novolin R) 0 unit SC ACHS [facility] PRN Reason: Protocol Last Admin: 08/26/16 21:00 Dose: 3 unit Metformin HCl (Glucophage) 1,000 mg PO BIDCC [facility] Last Admin: 08/26/16 20:39 Dose: 1,000 mg Methylprednisolone (Solu-Medrol) 40 mg IVP Q8H [facility] Last Admin: 08/27/16 00:36 Dose: 40 mg Montelukast Sodium (Singulair) 10 mg PO HS [facility] Last Admin: 08/26/16 22:34 Dose: 10 mg Pantoprazole Sodium (Protonix Ec Tab) 40 mg PO DAILY [facility] Last Admin: 08/26/16 11:20 Dose: 40 mg Fluticasone/Salmeterol (Advair Diskus 500/50) 1 puff IH RQ12 [facility] - Labs Labs: 08/26/16 06:58 08/26/16 06:58 - Constitutional Appears: In Acute Distress (patient appears anxious) - Head Exam Head Exam: NORMAL INSPECTION, NORMOCEPHALIC - Eye Exam Eye Exam: EOMI, PERRL Pupil Exam: NORMAL ACCOMODATION - ENT Exam ENT Exam: Mucous Membranes Moist - Respiratory Exam Respiratory Exam: Rales, NORMAL BREATHING PATTERN - Cardiovascular Exam Cardiovascular Exam: REGULAR RHYTHM, RRR, +S1, +S2. absent: JVD - GI/Abdominal Exam GI & Abdominal Exam: Soft, Normal Bowel Sounds. absent: Tenderness - Extremities Exam Extremities Exam: Full ROM. absent: Calf Tenderness, Joint Swelling, Pedal Edema, Tenderness - Neurological Exam Neurological Exam: Alert, Awake, Oriented x3 - Psychiatric Exam Psychiatric exam: Agitated, Anxious - Skin Skin Exam: Dry, Intact, Normal Color, Warm. absent: Petechiae, Rash Assessment and Plan - Assessment and Plan (Free Text) Assessment: Patient is a 41 year old male with PMHx of COPD, DM and migraines who presents with complaint of shortness of breath. Plan: 1. Uncontrolled COPD * Given duonebs x1 and decadron inj in ED with symptom improvement * SpO2 100% on room air * Chest X-ray: no active disease * Duonebs 3ml INH q6h [facility] * Advair 500/50 INH q12h * Singulair 10mg PO HS * Mucinex 600mg PO BID * Solumedrol 40mg IVP q8H * Admit to telemetry * f/u sputum culture 2. Uncontrolled Diabetes Mellitus * 08/13/16 HgA1C 9.2 * Blood sugar 307 on admission * Glipizide 10mg PO BID * Metformin 1000mg PO BID * Humulin 20u SC AM, 40u SC HS * Humalog 20u TID with meals * Patient not taking home medications. * Accuchecks 3. Migraines * Fioricet q6h prn migraine. Imitrex given last night with resolution of symptom. According to note on previous visit: "Patient showed paper records and [place] [facility] [place] contrast, CTA of Head and Neck, MRI brain without contrast, MRA head and neck all done on 07/22/16 at two hospitals [facility] [place] [facility] He had these examinations done at both institutions on the same day. All results were negative." * Neurology Consult: Dr. Luna --> Help appreciated * Imitrex 100mg PO once 4. Depression * Denies SI/HI * Consulted psychiatry- Dr Dozier- will f/u recommendations 5. Prophylactic measures * SCDs * Lovenox 40mg SC daily * Protonix 40mg PO daily * personal care worker consult- discharge planning for homeless patient <Payam Hackett H - Last Filed: 08/27/16 09:56> Objective - Vital Signs/Intake and Output Vital Signs (last 24 hours): Temp Pulse Resp BP Pulse Ox 98 F 74 20 134/87 95 08/26/16 23:05 08/26/16 23:05 08/26/16 23:05 08/26/16 23:05 08/26/16 23:05 Intake and Output: 08/27/16 08/27/16 06:59 18:59 Intake Total 600 Balance 600 - Medications Medications: Current Medications Acetaminophen/Butalbital/Caffeine (Fioricet) 1 tab PO Q6H PRN PRN Reason: Headache Last Admin: 08/26/16 20:23 Dose: 1 tab Albuterol/Ipratropium (Duoneb 3 Mg/0.5 Mg (3 Ml) Ud) 3 ml INH RQ6 [facility] Last Admin: 08/27/16 07:31 Dose: 3 ml Enoxaparin Sodium (Lovenox) 40 mg SC DAILY [facility] Last Admin: 08/26/16 11:19 Dose: 40 mg Glipizide (Glucotrol) 10 mg PO BIDAC [facility] Last Admin: 08/27/16 08:35 Dose: 10 mg Guaifenesin (Mucinex La) 600 mg PO BID [facility] Last Admin: 08/26/16 20:41 Dose: 600 mg Insulin Human NPH (Novolin N) 20 unit SC QAM [facility] Last Admin: 08/26/16 11:20 Dose: 20 unit Insulin Human NPH (Novolin N) 40 unit SC HS [facility] Last Admin: 08/26/16 22:36 Dose: 40 unit Insulin Human Regular (Novolin R) 0 unit SC ACHS [facility] PRN Reason: Protocol Last Admin: 08/27/16 08:35 Dose: 6 unit Metformin HCl (Glucophage) 1,000 mg PO BIDCC [facility] Last Admin: 08/27/16 08:35 Dose: 1,000 mg Methylprednisolone (Solu-Medrol) 40 mg IVP Q8H [facility] Last Admin: 08/27/16 08:36 Dose: 40 mg Montelukast Sodium (Singulair) 10 mg PO HS [facility] Last Admin: 08/26/16 22:34 Dose: 10 mg Pantoprazole Sodium (Protonix Ec Tab) 40 mg PO DAILY [facility] Last Admin: 08/26/16 11:20 Dose: 40 mg Fluticasone/Salmeterol (Advair Diskus 500/50) 1 puff IH RQ12 [facility] - Labs Labs: 08/27/16 08:21 08/27/16 08:21 Attending/Attestation - Attestation I have personally seen and examined this patient.: Yes I have fully participated in the care of the patient.: Yes I have reviewed all pertinent clinical information, including history, physical exam and plan: Yes Notes (Text): 08/27/16 09:54 Medical Attending: Patient was seen and examined by me. Agree with the above note by resident, Patient has been going from hospital to hospital after previous time I met him He reports the imitrex helps, he did not report headaches last night. Will also add additional insulin as well. 08/27/16 09:55
[2016-08-27 08:30] LABS: BASO % 0.1 % (0.0-2.0); HEMOGLOBIN 14.1 g/dL (12.0-18.0); LYMPH # 1.2 K/uL (1.0-4.3); LYMPH % 9.1 % (20.0-40.0); MEAN CELL VOLUME 95.1 fL (80.0-94.0); MEAN CORPUSCULAR HEMOGLOBIN 32.3 pg (27.0-31.0); MEAN CORPUSCULAR HGB CONC 33.9 g/dL (33.0-37.0); MONO # 0.7 K/uL (0.0-0.8); MONO % 5.1 % (0.0-10.0); NEUT # 11.6 K/uL (1.8-7.0); NEUT % 85.7 % (50.0-75.0); PLATELET COUNT 227 K/uL (130-400); RBC 4.37 Mil/uL (4.40-5.90); RED CELL DISTRIBUTION WIDTH 12.5 % (11.5-14.5); WHITE BLOOD COUNT 13.5 K/uL (4.8-10.8)
[2016-08-27] MEDS: (Novolin R) Insulin Human Regular 100 units/ml vial SC SCH ×4 (08:35→22:00)
[2016-08-27 08:36] LABS: GFR AFRICAN-AMERICAN > 60; GFR NON-AFRICAN AMERICAN > 60
[2016-08-27 08:37] LABS: BLOOD UREA NITROGEN 17 mg/dL (9-20); CALCIUM 9.4 mg/dl (8.6-10.4)
[2016-08-27] MEDS: Pantoprazole 40 mg EC Tab PO SCH (10:22)
[2016-08-27] MEDS: (Novolin N) Insulin Human Isophane (NPH) 100 u/ml 10 ml vial SC SCH ×2 (10:22→21:59)
[2016-08-27] MEDS: Enoxaparin 40 mg Syringe SC SCH (10:25)
[2016-08-27 10:45] LABS: LYMPHOCYTE 9 % (20-40); MONOCYTE 4 % (0-10); NEUTROPHIL 87 % (50-75); TOTAL CELLS COUNTED 100
[2016-08-27 10:46] LABS: PLATELET ESTIMATE NORMAL (NORMAL)
[2016-08-27] MEDS: guaiFENesin 600 mg ER Tab PO SCH ×2 (11:00→17:43)
--- NOTE | 2016-08-27 16:50 | CP.PCM.CON ---
History of Present Illness - History of Present Illness History of Present Illness: Mr. Parsons is a 41-year-old man with a past medical history of COPD and is currently admitted for worsening. He complains of a headache that has been occuring almost daily since May. He has tried "everything" including Fioricet , tramadol, other opiates, Imitrex and NSAIDs. He has not had much relief. He has had neuroimaging and it has all be normal. He says that on one occasion when he was having a headache, his left arm became weak and he dropped his beer can. It subsequently started to shake uncontrollably. Neurology was consulted to assist with the management and care. Review of Systems - Review of Systems All systems: reviewed and no additional remarkable complaints except Past Patient History - Infectious Disease Hx of Infectious Diseases: None - Past Medical History & Family History Past Medical History?: Yes - Past Social History Smoking Status: Heavy Smoker > 10 Cigarettes Daily - CARDIAC Hx Hypertension: Yes - PULMONARY Hx Asthma: Yes Hx Chronic Obstructive Pulmonary Disease (COPD): Yes - NEUROLOGICAL Hx Migraine: Yes - HEENT Hx HEENT Problems: No - RENAL Hx Chronic Kidney Disease: No - ENDOCRINE/METABOLIC Hx Endocrine Disorders: Yes Hx Diabetes Mellitus Type 2: Yes - HEMATOLOGICAL/ONCOLOGICAL Hx Blood Disorders: No - MUSCULOSKELETAL/RHEUMATOLOGICAL Hx Falls: No - GASTROINTESTINAL Hx Gastrointestinal Disorders: No - GENITOURINARY/GYNECOLOGICAL Hx Genitourinary Disorders: No - PSYCHIATRIC Hx Substance Use: No (denies) - SURGICAL HISTORY Hx Surgeries: No - ANESTHESIA Hx Anesthesia: No Hx Anesthesia Reactions: No Meds Allergies/Adverse Reactions: Allergies Allergy/AdvReac Type Severity Reaction Status Date / Time No Known Allergies Allergy Verified 08/21/16 03:50 - Medications Medications: Current Medications Albuterol/Ipratropium (Duoneb 3 Mg/0.5 Mg (3 Ml) Ud) 3 ml INH RQ6 [facility] Last Admin: 08/27/16 13:40 Dose: 3 ml Enoxaparin Sodium (Lovenox) 40 mg SC DAILY [facility] Last Admin: 08/27/16 10:25 Dose: 40 mg Glipizide (Glucotrol) 10 mg PO BIDAC [facility]CLUD[facility] Last Admin: 08/27/16 08:35 Dose: 10 mg Guaifenesin (Mucinex La) 600 mg PO BID [facility] Last Admin: 08/27/16 11:00 Dose: 600 mg Insulin Human NPH (Novolin N) 20 unit SC QAM COUNT [facility] Last Admin: 08/27/16 10:22 Dose: 20 unit Insulin Human NPH (Novolin N) 40 unit SC HS [facility] Last Admin: 08/26/16 22:36 Dose: 40 unit Insulin Human Regular (Novolin R) 0 unit SC ACHS COUNT [facility]CLUD[facility] PRN Reason: Protocol Last Admin: 08/27/16 12:30 Dose: Not Given Metformin HCl (Glucophage) 1,000 mg PO BIDCC COUNT [facility]CLUD[facility] Last Admin: 08/27/16 08:35 Dose: 1,000 mg Methylprednisolone (Solu-Medrol) 40 mg IVP Q8H [facility] Last Admin: 08/27/16 08:36 Dose: 40 mg Montelukast Sodium (Singulair) 10 mg PO [facility] Last Admin: 08/26/16 22:34 Dose: 10 mg Pantoprazole Sodium (Protonix Ec Tab) 40 mg PO DAILY [facility] Last Admin: 08/27/16 10:22 Dose: 40 mg Fluticasone/Salmeterol (Advair Diskus 500/50) 1 puff IH RQ12 [facility] Topiramate (Topamax) 25 mg PO BID COUNT [facility]CLUD[facility] Physical Exam - Constitutional Appears: Well - Head Exam Head Exam: ATRAUMATIC, NORMAL INSPECTION, NORMOCEPHALIC - Eye Exam Eye Exam: EOMI, Normal appearance, PERRL - ENT Exam ENT Exam: Mucous Membranes Moist, Normal Exam - Neck Exam Neck exam: Positive for: Normal Inspection - Respiratory Exam Respiratory Exam: Clear to Auscultation Bilateral, NORMAL BREATHING PATTERN - Cardiovascular Exam Cardiovascular Exam: REGULAR RHYTHM, +S1, +S2 - GI/Abdominal Exam GI & Abdominal Exam: Normal Bowel Sounds, Soft. absent: Tenderness - Back Exam Back exam: NORMAL INSPECTION - Neurological Exam Neurological exam: Alert, CN II-XII Intact, Normal Gait, Oriented x3, Reflexes Normal - Expanded Neurological Exam Expanded Patient oriented to: person, place, time Cranial nerves: EOM's Intact: Normal, Facial Sensation: Normal, Gag Reflex: Normal, Nystagmus: Normal Cerebellar Function: Finger to Nose: Normal Upper motor neuron: Babinski Sign: Normal, James Neglect: Normal, Pronator Drift : Normal, Sensory Extinction: Normal Sensory exam: Lower Extremity Light Touch: Normal, Lower Extremity Pin Prick: Normal, Upper Extremity Light Touch: Normal, Upper Extremity Pin Prick: Normal Neuro motor strength exam: Left Upper Extremity: 5, Right Upper Extremity: 5, Left Lower Extremity: 5, Right Lower Extremity: 5 DTR: Achilles Tendon Left: 2+, Achilles Tendon Right: 2+, Bicep Left: 2+, Bicep Right: 2+, Brachioradialis Left: 2+, Brachioradialis Right: 2+, Patellar Left: 2 +, Patellar Right: 2+, Tricep Left: 2+, Tricep Right: 2+ - Psychiatric Exam Psychiatric exam: Normal Affect, Normal Mood - Skin Skin Exam: Dry, Intact, Normal Color, Warm Results - Vital Signs Recent Vital Signs: Last Vital Signs Temp 98 F 08/26/16 23:05 Pulse 74 08/26/16 23:05 Resp 20 08/26/16 23:05 BP 134/87 08/26/16 23:05 Pulse Ox 95 08/26/16 23:05 - Labs Result Diagrams: 08/27/16 08:21 08/27/16 08:21 Labs: Laboratory Results - last 24 hr 08/26/16 08/27/16 08/27/16 20:30 00:46 06:34 WBC RBC Hgb Hct MCV MCH MCHC RDW Plt Count MPV Neut % (Auto) Lymph % (Auto) [place] % (Auto) Eos % (Auto) Baso % (Auto) Neut # Lymph # [place] # Eos # Baso # Neutrophils % (Manual) Lymphocytes % (Manual) Monocytes % (Manual) Platelet Estimate RBC Morphology Sodium Potassium Chloride Carbon Dioxide Anion Gap BUN Creatinine Est GFR ( Amer) Est GFR (Non-Af Amer) POC Glucose (mg/dL) 354 H 326 H 331 H Random Glucose Calcium 08/27/16 08/27/16 08:21 08:21 WBC 13.5 H RBC 4.37 L Hgb 14.1 Hct 41.6 MCV 95.1 H MCH 32.3 H MCHC 33.9 RDW 12.5 Plt Count 227 MPV 8.0 Neut % (Auto) 85.7 H Lymph % (Auto) 9.1 L [place] % (Auto) 5.1 Eos % (Auto) 0.0 Baso % (Auto) 0.1 Neut # 11.6 H Lymph # 1.2 [place] # 0.7 Eos # 0.0 Baso # 0.0 Neutrophils % (Manual) 87 H Lymphocytes % (Manual) 9 L Monocytes % (Manual) 4 Platelet Estimate Normal RBC Morphology Normal Sodium 134 Potassium 4.4 Chloride 101 Carbon Dioxide 26 Anion Gap 12 BUN 17 Creatinine 0.6 L Est GFR ( Amer) > 60 Est GFR (Non-Af Amer) > 60 POC Glucose (mg/dL) Random Glucose 330 H Calcium 9.4 Assessment & Plan (1) Headache Assessment and Plan: The description of the headache is different than usual migraine headaches, but the photophobia and throbbing nature are consistent. I recommend starting headache prophylaxis with topamax 25 mg BID to titrate up to 150 or 200 mg daily within the next month as an outpatient. Will give magnesium sulfate for the current headache. Follow-up with outpatient neurology. Thank you. Status: Acute Priority: Medium
[2016-08-27] MEDS: Magnesium Sulfate 1 gm/100 mL D5W IVPB SCH ×4 (17:49→19:30)
[2016-08-28] MEDS: MethylPREDNISolone 40 mg Vial IVP SCH ×4 (00:19→18:22)
[2016-08-28] MEDS: Albuterol-Ipratrop 3 mg / 0.5 (3 ml) UD INH SCH ×4 (01:38→19:16)
[2016-08-28] MEDS: (Novolin R) Insulin Human Regular 100 units/ml vial SC SCH ×4 (08:00→22:01)
[2016-08-28] MEDS: Enoxaparin 40 mg Syringe SC SCH (10:14)
[2016-08-28] MEDS: (Novolin N) Insulin Human Isophane (NPH) 100 u/ml 10 ml vial SC SCH ×2 (10:15→21:55)
[2016-08-28] MEDS: Pantoprazole 40 mg EC Tab PO SCH (10:17)
[2016-08-28] MEDS: guaiFENesin 600 mg ER Tab PO SCH ×2 (10:23→18:21)
[2016-08-28 11:52] LABS: BASO % 0.2 % (0.0-2.0); HEMOGLOBIN 15.1 g/dL (12.0-18.0); LYMPH % 12.3 % (20.0-40.0); MEAN CELL VOLUME 94.8 fL (80.0-94.0); MEAN CORPUSCULAR HEMOGLOBIN 32.5 pg (27.0-31.0); MEAN CORPUSCULAR HGB CONC 34.3 g/dL (33.0-37.0); MEAN PLATELET VOLUME 8.2 fL (7.2-11.7); MONO # 0.9 K/uL (0.0-0.8); MONO % 5.3 % (0.0-10.0); NEUT # 13.4 K/uL (1.8-7.0); NEUT % 82.2 % (50.0-75.0); RBC 4.64 Mil/uL (4.40-5.90); RED CELL DISTRIBUTION WIDTH 12.7 % (11.5-14.5); WHITE BLOOD COUNT 16.3 K/uL (4.8-10.8)
[2016-08-28 12:04] LABS: ALBUMIN 3.7 g/dL (3.5-5.0)
[2016-08-28 12:07] LABS: ALB/GLOB RATIO 1.3 (1.0-2.1); ALT/SGPT 34 U/L (21-72); AST/SGOT 9 U/L (17-59); BLOOD UREA NITROGEN 25 mg/dL (9-20); GFR AFRICAN-AMERICAN > 60; GFR NON-AFRICAN AMERICAN > 60
[2016-08-28 12:08] LABS: CALCIUM 9.7 mg/dl (8.6-10.4); MAGNESIUM 2.1 mg/dL (1.6-2.3)
[2016-08-28 15:43] VITALS: RESP 20
--- NOTE | 2016-08-28 17:47 | CP.PCM.PN ---
<Nila Holman - Last Filed: 08/28/16 17:44> Subjective - Date & Time of Evaluation Date of Evaluation: 08/28/16 Time of Evaluation: 08:00 - Subjective Subjective: Patient seen and examined at bedside this morning. Patient still complains of a headache all over his head. Patient anxious and does not want to be in the hospital. Code ECHO called on patient, application security specialist brought him back. Objective - Vital Signs/Intake and Output Vital Signs (last 24 hours): Temp Pulse Resp BP Pulse Ox 98.1 F 84 20 128/79 97 08/28/16 15:42 08/28/16 15:42 08/28/16 15:42 08/28/16 15:42 08/28/16 15:42 Intake and Output: 08/28/16 08/28/16 06:59 18:59 Intake Total 400 Balance 400 - Medications Medications: Current Medications Acetaminophen (Tylenol 325mg Tab) 650 mg PO Q6 PRN PRN Reason: Pain, severe (8-10) Albuterol/Ipratropium (Duoneb 3 Mg/0.5 Mg (3 Ml) Ud) 3 ml INH RQ6 [facility] Last Admin: 08/28/16 13:25 Dose: Not Given Enoxaparin Sodium (Lovenox) 40 mg SC DAILY [facility] Last Admin: 08/28/16 10:14 Dose: 40 mg Glipizide (Glucotrol) 10 mg PO BIDAC [facility] Last Admin: 08/28/16 10:20 Dose: 10 mg Guaifenesin (Mucinex La) 600 mg PO BID [facility] Last Admin: 08/28/16 10:23 Dose: 600 mg Insulin Glargine (Lantus) 20 unit SC HS [facility] Insulin Human NPH (Novolin N) 20 unit SC QAM [facility] Last Admin: 08/28/16 10:15 Dose: 20 unit Insulin Human NPH (Novolin N) 40 unit SC HS [facility] Last Admin: 08/27/16 21:59 Dose: 40 unit Insulin Human Regular (Novolin R) 0 unit SC ACHS [facility] PRN Reason: Protocol Last Admin: 08/28/16 13:42 Dose: 6 unit Metformin HCl (Glucophage) 1,000 mg PO BIDCC [facility] Last Admin: 08/28/16 10:20 Dose: 1,000 mg Methylprednisolone (Solu-Medrol) 40 mg IVP Q8H [facility] Last Admin: 08/28/16 09:05 Dose: 40 mg Montelukast Sodium (Singulair) 10 mg PO HS [facility] Last Admin: 08/27/16 21:59 Dose: 10 mg Pantoprazole Sodium (Protonix Ec Tab) 40 mg PO DAILY [facility] Last Admin: 08/28/16 10:17 Dose: 40 mg Fluticasone/Salmeterol (Advair Diskus 500/50) 1 puff IH RQ12 [facility] Topiramate (Topamax) 25 mg PO BID [facility] Last Admin: 08/28/16 10:27 Dose: 25 mg - Labs Labs: 08/28/16 11:42 08/28/16 11:42 - Constitutional Appears: Well, Non-toxic, No Acute Distress - Head Exam Head Exam: ATRAUMATIC, NORMAL INSPECTION, NORMOCEPHALIC - Eye Exam Eye Exam: EOMI, Normal appearance, PERRL - ENT Exam ENT Exam: Mucous Membranes Dry - Neck Exam Neck Exam: Full ROM, Normal Inspection. absent: Lymphadenopathy - Respiratory Exam Respiratory Exam: Clear to Ausculation Bilateral, Wheezes, NORMAL BREATHING PATTERN. absent: Rhonchi Additional comments: mild expiratory wheezes - Cardiovascular Exam Cardiovascular Exam: REGULAR RHYTHM, RRR, +S1, +S2. absent: Gallop, Rubs, Murmur - GI/Abdominal Exam GI & Abdominal Exam: Soft, Normal Bowel Sounds. absent: Distended, Firm, Guarding, Tenderness - Extremities Exam Extremities Exam: Full ROM, Normal Capillary Refill, Normal Inspection. absent : Joint Swelling, Pedal Edema - Back Exam Back Exam: NORMAL INSPECTION - Neurological Exam Neurological Exam: Alert, Awake, Oriented x3 - Psychiatric Exam Psychiatric exam: Anxious - Skin Skin Exam: Dry, Intact, Normal Color, Warm Assessment and Plan - Assessment and Plan (Free Text) Assessment: 1. Uncontrolled COPD Given duonebs x1 and decadron inj in ED with symptom improvement SpO2 100% on room air Chest X-ray: no active disease Duonebs 3ml INH q6h [facility] Advair 500/50 INH q12h Singulair 10mg PO HS Mucinex 600mg PO BID Solumedrol 40mg IVP q8H Admit to telemetry f/u sputum culture 2. Uncontrolled Diabetes Mellitus 08/13/16 HgA1C 9.2 bs 307 on admission Glipizide 10mg PO BID Metformin 1000mg PO BID Humulin 20u SC AM, 40u SC HS Humalog 20u TID with meals Lantus 20 HS Accuchecks 3. Migraines Fioricet q6h prn migraine. Patient started on Topamax 25 mg PO BID, Imitrex stopped According to note on previous visit: "Patient showed paper records and medical records were retrieved from [facility]: Head CT w/o contrast, CTA of Head and Neck, MRI brain without contrast, MRA head and neck all done on 07/22/16 at two hospitals [facility] and [facility]. He had these examinations done at both institutions on the same day. All results were negative." 4. Depression Denies SI/HI Consulted psychiatry- Dr Dozier- nessa f/u recommendations 5. Prophylactic measures SCDs Lovenox 40mg SC daily Protonix 40mg PO daily welfare worker consult- discharge planning for homeless patient <Payam Hackett H - Last Filed: 08/28/16 18:06> Objective - Vital Signs/Intake and Output Vital Signs (last 24 hours): Temp Pulse Resp BP Pulse Ox 98.1 F 84 20 128/79 97 08/28/16 15:42 08/28/16 15:42 08/28/16 15:42 08/28/16 15:42 08/28/16 15:42 Intake and Output: 08/28/16 08/28/16 06:59 18:59 Intake Total 400 Balance 400 - Medications Medications: Current Medications Acetaminophen (Tylenol 325mg Tab) 650 mg PO Q6 PRN PRN Reason: Pain, severe (8-10) Albuterol/Ipratropium (Duoneb 3 Mg/0.5 Mg (3 Ml) Ud) 3 ml INH RQ6 [facility] Last Admin: 08/28/16 13:25 Dose: Not Given Enoxaparin Sodium (Lovenox) 40 mg SC DAILY [facility] Last Admin: 08/28/16 10:14 Dose: 40 mg Glipizide (Glucotrol) 10 mg PO BIDAC [facility] Last Admin: 08/28/16 10:20 Dose: 10 mg Guaifenesin (Mucinex La) 600 mg PO BID [facility] Last Admin: 08/28/16 10:23 Dose: 600 mg Insulin Glargine (Lantus) 20 unit SC HS [facility] Insulin Human NPH (Novolin N) 20 unit SC QAM [facility] Last Admin: 08/28/16 10:15 Dose: 20 unit Insulin Human NPH (Novolin N) 40 unit SC HS [facility] Last Admin: 08/27/16 21:59 Dose: 40 unit Insulin Human Regular (Novolin R) 0 unit SC ACHS [facility] PRN Reason: Protocol Last Admin: 08/28/16 13:42 Dose: 6 unit Metformin HCl (Glucophage) 1,000 mg PO BIDCC [facility] Last Admin: 08/28/16 10:20 Dose: 1,000 mg Methylprednisolone (Solu-Medrol) 40 mg IVP Q8H [facility] Last Admin: 08/28/16 09:05 Dose: 40 mg Montelukast Sodium (Singulair) 10 mg PO HS [facility] Last Admin: 08/27/16 21:59 Dose: 10 mg Pantoprazole Sodium (Protonix Ec Tab) 40 mg PO DAILY [facility] Last Admin: 08/28/16 10:17 Dose: 40 mg Fluticasone/Salmeterol (Advair Diskus 500/50) 1 puff IH RQ12 [facility] Topiramate (Topamax) 25 mg PO BID [facility] Last Admin: 08/28/16 10:27 Dose: 25 mg - Labs Labs: 08/28/16 11:42 08/28/16 11:42 Attending/Attestation - Attestation I have personally seen and examined this patient.: Yes I have fully participated in the care of the patient.: Yes I have reviewed all pertinent clinical information, including history, physical exam and plan: Yes Notes (Text): Medical attending: Patient was seen and examined by me, agrees the above note by medical billing coordinator. We still have to adjust the patient's medication with regards to his diabetes. Regular try adding on Lantus 20 units today to see if this will help bring down his blood glucose. Later on in the day security had to be called after some type of elopement occurred. Earlier in the day he was very emotional, he explained that he's in a difficult living situation right now and he was unable to afford his medications. He says that he went into DKA after he was discharged last time since he was not able to afford his medications. He's been started on Topamax to see if this helps with the headaches/migraines as per neurology. The patient explains that he's upset that he is 41 years old and has to take this many medications. At times he was very demanding during our conversation. Thank you very much, Payam Hackett
[2016-08-28] MEDS ORDERED: (Lantus) Insulin Glargine, Recombinant SC SCH (22:00)
[2016-08-29] MEDS: MethylPREDNISolone 40 mg Vial IVP SCH ×3 (00:40→14:51)
[2016-08-29] MEDS ORDERED: DiphenhydrAMINE 50 mg/ml Inj IVP STA (00:49)
[2016-08-29] MEDS: (Novolin R) Insulin Human Regular 100 units/ml vial SC SCH ×5 (08:03→22:54)
[2016-08-29] MEDS: Albuterol-Ipratrop 3 mg / 0.5 (3 ml) UD INH SCH ×3 (08:48→20:31)
[2016-08-29] MEDS: (Novolin N) Insulin Human Isophane (NPH) 100 u/ml 10 ml vial SC SCH (09:24)
[2016-08-29] MEDS: Enoxaparin 40 mg Syringe SC SCH (09:24)
[2016-08-29] MEDS: guaiFENesin 600 mg ER Tab PO SCH ×2 (09:24→17:50)
[2016-08-29] MEDS: Pantoprazole 40 mg EC Tab PO SCH (09:24)
[2016-08-29 12:08] LABS: BASO % 0.2 % (0.0-2.0); HEMOGLOBIN 15.9 g/dL (12.0-18.0); LYMPH # 1.2 K/uL (1.0-4.3); LYMPH % 7.7 % (20.0-40.0); MEAN CELL VOLUME 94.9 fL (80.0-94.0); MEAN CORPUSCULAR HEMOGLOBIN 31.9 pg (27.0-31.0); MEAN CORPUSCULAR HGB CONC 33.6 g/dL (33.0-37.0); MEAN PLATELET VOLUME 7.9 fL (7.2-11.7); MONO # 0.9 K/uL (0.0-0.8); MONO % 6.2 % (0.0-10.0); NEUT % 85.9 % (50.0-75.0); NRBC % 0.1 % (0.0-2.0); PLATELET COUNT 256 K/uL (130-400); RED CELL DISTRIBUTION WIDTH 12.9 % (11.5-14.5); WHITE BLOOD COUNT 15.1 K/uL (4.8-10.8)
[2016-08-29 12:11] LABS: ALBUMIN 3.8 g/dL (3.5-5.0)
[2016-08-29 12:14] LABS: AST/SGOT 12 U/L (17-59); GFR AFRICAN-AMERICAN > 60; GFR NON-AFRICAN AMERICAN > 60
[2016-08-29 12:15] LABS: ALB/GLOB RATIO 1.3 (1.0-2.1); ALT/SGPT 25 U/L (21-72); BLOOD UREA NITROGEN 26 mg/dL (9-20); MAGNESIUM 2.2 mg/dL (1.6-2.3)
[2016-08-29 12:32] LABS: BANDS 4 % (0-2); LYMPHOCYTE 10 % (20-40); MONOCYTE 5 % (0-10); NEUTROPHIL 81 % (50-75); PLATELET ESTIMATE NORMAL (NORMAL); TOTAL CELLS COUNTED 100
[2016-08-29] MEDS ORDERED: (Lantus) Insulin Glargine, Recombinant SC SCH (13:46)
--- NOTE | 2016-08-29 15:13 | RAD ---
HISTORY: dyspnea COMPARISON: 08/25/2016 FINDINGS: LUNGS: No active pulmonary disease. PLEURA: No significant pleural effusion identified, no pneumothorax apparent. CARDIOVASCULAR: Normal. OSSEOUS STRUCTURES: No significant abnormalities. VISUALIZED UPPER ABDOMEN: Normal. OTHER FINDINGS: None. IMPRESSION: No active disease.
--- NOTE | 2016-08-29 17:40 | CP.PCM.PN ---
<Nila Holman - Last Filed: 08/29/16 21:34> Subjective - Date & Time of Evaluation Date of Evaluation: 08/29/16 Time of Evaluation: 07:30 - Subjective Subjective: PGY1 - Medicine Note- Dr. Hackett's Service Patient seen and examined at bedside and in no acute distress. Patient says that he feels the Topamax is helping some but still has diffuse headache. Patient admits to cough with no phlegm for the past month and anterior leg pain bilaterally that started 3 days ago. Objective - Vital Signs/Intake and Output Vital Signs (last 24 hours): Temp Pulse Resp BP Pulse Ox 99.8 F H 83 20 142/91 H 98 08/29/16 15:00 08/29/16 15:00 08/29/16 15:00 08/29/16 15:00 08/29/16 15:00 Intake and Output: 08/29/16 08/29/16 06:59 18:59 Intake Total 420 Balance 420 - Medications Medications: Current Medications Acetaminophen (Tylenol 325mg Tab) 650 mg PO Q6 PRN PRN Reason: Pain, severe (8-10) Albuterol/Ipratropium (Duoneb 3 Mg/0.5 Mg (3 Ml) Ud) 3 ml INH RQ6 [facility] Last Admin: 08/29/16 14:05 Dose: 3 ml Enoxaparin Sodium (Lovenox) 40 mg SC DAILY [facility] Last Admin: 08/29/16 09:24 Dose: 40 mg Glipizide (Glucotrol) 10 mg PO BIDAC [facility] Last Admin: 08/29/16 08:04 Dose: 10 mg Guaifenesin (Mucinex La) 600 mg PO BID [facility] Last Admin: 08/29/16 09:24 Dose: 600 mg Insulin Glargine (Lantus) 30 unit SC HS [facility] Insulin Human NPH (Novolin N) 20 unit SC QAM [facility] Last Admin: 08/29/16 09:24 Dose: 20 unit Insulin Human NPH (Novolin N) 40 unit SC HS [facility] Last Admin: 08/28/16 21:55 Dose: 40 unit Insulin Human Regular (Novolin R) 0 unit SC ACHS [facility] PRN Reason: Protocol Last Admin: 08/29/16 12:41 Dose: 6 unit Insulin Human Regular (Novolin R) 15 unit SC AC [facility] Metformin HCl (Glucophage) 1,000 mg PO BIDCC [facility] Last Admin: 08/29/16 08:04 Dose: 1,000 mg Methylprednisolone (Solu-Medrol) 40 mg IVP Q12H [facility] Last Admin: 08/29/16 14:51 Dose: 40 mg Montelukast Sodium (Singulair) 10 mg PO HS [facility] Last Admin: 08/28/16 21:54 Dose: 10 mg Pantoprazole Sodium (Protonix Ec Tab) 40 mg PO DAILY [facility] Last Admin: 08/29/16 09:24 Dose: 40 mg Fluticasone/Salmeterol (Advair Diskus 500/50) 1 puff IH RQ12 [facility] Topiramate (Topamax) 25 mg PO BID [facility] Last Admin: 08/29/16 09:24 Dose: 25 mg - Labs Labs: 08/29/16 11:50 08/29/16 11:50 - Constitutional Appears: Well, Non-toxic, No Acute Distress - Head Exam Head Exam: ATRAUMATIC, NORMAL INSPECTION, NORMOCEPHALIC - Eye Exam Eye Exam: EOMI, Normal appearance, PERRL - ENT Exam ENT Exam: Mucous Membranes Moist, Normal Exam - Neck Exam Neck Exam: Full ROM, Normal Inspection. absent: Lymphadenopathy - Respiratory Exam Respiratory Exam: Wheezes, NORMAL BREATHING PATTERN. absent: Rales, Rhonchi, Respiratory Distress, Stridor Additional comments: expiratory wheezing bilaterally - Cardiovascular Exam Cardiovascular Exam: REGULAR RHYTHM, RRR, +S1, +S2. absent: Gallop, Rubs, Murmur - GI/Abdominal Exam GI & Abdominal Exam: Soft, Normal Bowel Sounds. absent: Tenderness - Extremities Exam Extremities Exam: Full ROM, Normal Capillary Refill, Normal Inspection, Tenderness. absent: Joint Swelling, Pedal Edema Additional comments: bilateral anterior tibial tenderness - Back Exam Back Exam: NORMAL INSPECTION - Neurological Exam Neurological Exam: Alert, Awake, Oriented x3 - Psychiatric Exam Psychiatric exam: Normal Affect, Normal Mood - Skin Skin Exam: Normal Color, Warm Assessment and Plan - Assessment and Plan (Free Text) Assessment: 1. Uncontrolled COPD Given duonebs x1 and decadron inj in ED with symptom improvement SpO2 100% on room air Chest X-ray: no active disease Solumedrol 40mg IVP q8H changed to BID (08/29) Duonebs 3ml INH q6h [facility] Advair 500/50 INH q12h Singulair 10mg PO HS Mucinex 600mg PO BID f/u sputum culture f/u chest xray 2. Uncontrolled Diabetes Mellitus 08/13/16 HgA1C 9.2 bs 307 on admission Glipizide 10mg PO BID Metformin 1000mg PO BID 08/29: changed medications to: Lantus 30 HS and Novolog 30 AC Accuchecks Diabetic Diet 3. Migraines Tylenol 650 mg PO Q6 PRN Patient to continue on Topamax 25 mg PO BID According to note on previous visit: "Patient showed paper records and [place] [facility] w/o contrast, CTA of Head and Neck, MRI brain without contrast, MRA head and neck all done on 07/22/16 at two hospitals [facility] [place] [facility]. He had these examinations done at both institutions on the same day. All results were negative." 4. Depression Denies SI/HI Consulted psychiatry- Dr Dozier- nessa f/u recommendations 5. Prophylactic measures SCDs Lovenox 40mg SC daily Protonix 40mg PO daily cattle care worker consult- discharge planning for homeless patient <Payam Hackett H - Last Filed: 08/30/16 07:32> Objective - Vital Signs/Intake and Output Vital Signs (last 24 hours): Temp Pulse Resp BP Pulse Ox 99.8 F H 94 H 20 162/88 H 96 08/29/16 15:00 08/30/16 00:00 08/30/16 00:00 08/30/16 00:00 08/30/16 00:00 Intake and Output: 08/30/16 08/30/16 06:59 18:59 Intake Total 500 Balance 500 - Medications Medications: Current Medications Acetaminophen (Tylenol 325mg Tab) 650 mg PO Q6 PRN PRN Reason: Pain, severe (8-10) Albuterol/Ipratropium (Duoneb 3 Mg/0.5 Mg (3 Ml) Ud) 3 ml INH RQ6 [facility] Last Admin: 08/30/16 01:07 Dose: Not Given Diphenhydramine HCl (Benadryl) 25 mg PO HS PRN PRN Reason: Insomnia Last Admin: 08/30/16 00:28 Dose: 25 mg Enoxaparin Sodium (Lovenox) 40 mg SC DAILY [facility] Last Admin: 08/29/16 09:24 Dose: 40 mg Glipizide (Glucotrol) 10 mg PO BIDAC [facility] Last Admin: 08/29/16 17:50 Dose: 10 mg Guaifenesin (Mucinex La) 600 mg PO BID [facility] Last Admin: 08/29/16 17:50 Dose: 600 mg Insulin Glargine (Lantus) 30 unit SC HS [facility] Last Admin: 08/29/16 21:20 Dose: 30 units Insulin Human NPH (Novolin N) 20 unit SC QAM [facility] Last Admin: 08/29/16 09:24 Dose: 20 unit Insulin Human NPH (Novolin N) 40 unit SC HS [facility] Last Admin: 08/28/16 21:55 Dose: 40 unit Insulin Human Regular (Novolin R) 0 unit SC ACHS [facility] PRN Reason: Protocol Last Admin: 08/29/16 22:54 Dose: Not Given Insulin Human Regular (Novolin R) 15 unit SC AC [facility] Last Admin: 08/29/16 17:48 Dose: 15 unit Metformin HCl (Glucophage) 1,000 mg PO BIDCC [facility] Last Admin: 08/29/16 17:50 Dose: 1,000 mg Methylprednisolone (Solu-Medrol) 40 mg IVP Q12H [facility] Last Admin: 08/30/16 01:03 Dose: 40 mg Montelukast Sodium (Singulair) 10 mg PO HS [facility] Last Admin: 08/29/16 21:20 Dose: 10 mg Pantoprazole Sodium (Protonix Ec Tab) 40 mg PO DAILY [facility] Last Admin: 08/29/16 09:24 Dose: 40 mg Fluticasone/Salmeterol (Advair Diskus 500/50) 1 puff IH RQ12 [facility] Topiramate (Topamax) 25 mg PO BID [facility] Last Admin: 08/29/16 17:50 Dose: 25 mg - Labs Labs: 08/29/16 11:50 08/29/16 11:50 Attending/Attestation - Attestation I have personally seen and examined this patient.: Yes I have fully participated in the care of the patient.: Yes I have reviewed all pertinent clinical information, including history, physical exam and plan: Yes Notes (Text): Medical Attending: Patient was seen and examined by me. Agree with the above note by the resident. The patient will have change in the way insulin is being given - now will be AC meals and also long acting lantus. Continue topamax with the headache Payam Hackett
[2016-08-30] MEDS: MethylPREDNISolone 40 mg Vial IVP SCH ×2 (01:03→13:44)
[2016-08-30] MEDS: Albuterol-Ipratrop 3 mg / 0.5 (3 ml) UD INH SCH ×5 (01:07→19:28)
[2016-08-30] MEDS: (Novolin R) Insulin Human Regular 100 units/ml vial SC SCH ×6 (08:44→22:15)
[2016-08-30] MEDS: Enoxaparin 40 mg Syringe SC SCH (10:48)
[2016-08-30] MEDS: Pantoprazole 40 mg EC Tab PO SCH (10:48)
[2016-08-30] MEDS: guaiFENesin 600 mg ER Tab PO SCH ×2 (10:48→17:38)
[2016-08-30 11:39] LABS: BASO % 0.1 % (0.0-2.0); HEMOGLOBIN 16.5 g/dL (12.0-18.0); LYMPH # 1.5 K/uL (1.0-4.3); LYMPH % 10.3 % (20.0-40.0); MEAN CELL VOLUME 94.7 fL (80.0-94.0); MEAN CORPUSCULAR HEMOGLOBIN 32.3 pg (27.0-31.0); MEAN CORPUSCULAR HGB CONC 34.1 g/dL (33.0-37.0); MEAN PLATELET VOLUME 7.8 fL (7.2-11.7); MONO % 6.9 % (0.0-10.0); NEUT # 11.9 K/uL (1.8-7.0); NEUT % 82.7 % (50.0-75.0); NRBC % 0.1 % (0.0-2.0); RBC 5.13 Mil/uL (4.40-5.90); RED CELL DISTRIBUTION WIDTH 13.1 % (11.5-14.5); WHITE BLOOD COUNT 14.4 K/uL (4.8-10.8)
[2016-08-30 11:56] LABS: ALBUMIN 3.8 g/dL (3.5-5.0)
[2016-08-30 11:59] LABS: ALB/GLOB RATIO 1.3 (1.0-2.1); ALT/SGPT 29 U/L (21-72); AST/SGOT 16 U/L (17-59); BLOOD UREA NITROGEN 22 mg/dL (9-20); GFR AFRICAN-AMERICAN > 60; GFR NON-AFRICAN AMERICAN > 60
[2016-08-30 12:00] LABS: CALCIUM 9.9 mg/dl (8.6-10.4); MAGNESIUM 1.9 mg/dL (1.6-2.3)
[2016-08-30] MEDS: (Novolog) Insulin Aspart, Recombinant 100 u/ml 10 ml vial SC SCH (16:30)
--- NOTE | 2016-08-30 16:50 | CP.PCM.PN ---
<Nila Holman - Last Filed: 08/30/16 17:06> Subjective - Date & Time of Evaluation Date of Evaluation: 08/30/16 Time of Evaluation: 07:30 - Subjective Subjective: PGY1 - Medicine Note- Dr. Hackett's Service Patient seen and examined at bedside and in no acute distress. Patient says that he feels the Topamax is helping some but still has diffuse headache. Patient denies photophobia, blurry vision, nausea, vomiting. Patient admits to some knee and ankle pain that comes and goes. Patient is urinating and moving bowels normally. Objective - Vital Signs/Intake and Output Vital Signs (last 24 hours): Temp Pulse Resp BP Pulse Ox 97 F L 76 20 120/67 97 08/30/16 08:00 08/30/16 08:00 08/30/16 08:00 08/30/16 08:00 08/30/16 08:00 Intake and Output: 08/30/16 08/30/16 06:59 18:59 Intake Total 500 Output Total 3 Balance 500 -3 - Medications Medications: Current Medications Acetaminophen (Tylenol 325mg Tab) 650 mg PO Q6 PRN PRN Reason: Pain, severe (8-10) Albuterol/Ipratropium (Duoneb 3 Mg/0.5 Mg (3 Ml) Ud) 3 ml INH RQ6 [facility] Last Admin: 08/30/16 13:20 Dose: 3 ml Diphenhydramine HCl (Benadryl) 25 mg IVP HS PRN PRN Reason: Insomnia Enoxaparin Sodium (Lovenox) 40 mg SC DAILY [facility] Last Admin: 08/30/16 10:48 Dose: 40 mg Glipizide (Glucotrol) 10 mg PO BIDAC [facility] Last Admin: 08/30/16 08:44 Dose: 10 mg Guaifenesin (Mucinex La) 600 mg PO BID [facility] Last Admin: 08/30/16 10:48 Dose: 600 mg Insulin Aspart (Novolog) 25 unit SC AC [facility] Insulin Glargine (Lantus) 40 unit SC HS [facility] Insulin Human NPH (Novolin N) 20 unit SC QAM [facility] Last Admin: 08/29/16 09:24 Dose: 20 unit Insulin Human NPH (Novolin N) 40 unit SC HS [facility] Last Admin: 08/28/16 21:55 Dose: 40 unit Insulin Human Regular (Novolin R) 0 unit SC ACHS [facility] PRN Reason: Protocol Last Admin: 08/30/16 11:58 Dose: 6 unit Metformin HCl (Glucophage) 1,000 mg PO BIDCC [facility] Last Admin: 08/30/16 08:44 Dose: 1,000 mg Methylprednisolone (Solu-Medrol) 20 mg IVP Q12H [facility] Montelukast Sodium (Singulair) 10 mg PO HS [facility] Last Admin: 08/29/16 21:20 Dose: 10 mg Pantoprazole Sodium (Protonix Ec Tab) 40 mg PO DAILY [facility] Last Admin: 08/30/16 10:48 Dose: 40 mg Fluticasone/Salmeterol (Advair Diskus 500/50) 1 puff IH RQ12 [facility] Topiramate (Topamax) 25 mg PO BID [facility] Last Admin: 08/30/16 10:48 Dose: 25 mg - Labs Labs: 08/30/16 11:28 08/30/16 11:28 - Constitutional Appears: Well, Non-toxic, No Acute Distress - Head Exam Head Exam: ATRAUMATIC, NORMAL INSPECTION, NORMOCEPHALIC - Eye Exam Eye Exam: EOMI, Normal appearance, PERRL - ENT Exam ENT Exam: Mucous Membranes Moist, Normal Exam - Neck Exam Neck Exam: Full ROM, Normal Inspection. absent: Lymphadenopathy - Respiratory Exam Respiratory Exam: Wheezes, NORMAL BREATHING PATTERN. absent: Clear to Ausculation Bilateral, Rales, Rhonchi, Respiratory Distress, Stridor Additional comments: mild expiratory wheezing - Cardiovascular Exam Cardiovascular Exam: REGULAR RHYTHM, RRR, +S1, +S2. absent: Gallop, Rubs, Murmur - GI/Abdominal Exam GI & Abdominal Exam: Soft, Normal Bowel Sounds. absent: Distended, Firm, Guarding, Rigid, Tenderness - Back Exam Back Exam: NORMAL INSPECTION - Neurological Exam Neurological Exam: Alert, Awake, Oriented x3 - Psychiatric Exam Psychiatric exam: Anxious, Normal Affect - Skin Skin Exam: Intact, Normal Color, Warm Assessment and Plan - Assessment and Plan (Free Text) Assessment: 1. Uncontrolled COPD Given duonebs x1 and decadron inj in ED with symptom improvement SpO2 100% on room air Chest X-ray: no active disease Solumedrol 20mg IVP q8H changed to BID (08/30) Duonebs 3ml INH q6h [facility] Advair 500/50 INH q12h Singulair 10mg PO HS Mucinex 600mg PO BID f/u sputum culture f/u chest xray 2. Uncontrolled Diabetes Mellitus 08/13/16 HgA1C 9.2 bs 307 on admission Glipizide 10mg PO BID Metformin 1000mg PO BID 08/30: changed medications to: Lantus 40 HS and Novolog 25 AC Accuchecks Diabetic Diet 3. Migraines Tylenol 650 mg PO Q6 PRN Patient to continue on Topamax 25 mg PO BID According to note on previous visit: "Patient showed paper records and medical records were retrieved from [facility]: Head CT w/o contrast, CTA of Head and Neck, MRI brain without contrast, MRA head and neck all done on 07/22/16 at two hospitals [facility] and [facility]. He had these examinations done at both institutions on the same day. All results were negative." 4. Depression Denies SI/HI Consulted psychiatry- Dr Dozier- nessa f/u recommendations 5. 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- discharge planning for homeless patient <Payam Hackett H - Last Filed: 08/30/16 18:16> Objective - Vital Signs/Intake and Output Vital Signs (last 24 hours): Temp Pulse Resp BP Pulse Ox 97 F L 98 H 20 128/80 98 08/30/16 08:00 08/30/16 15:01 08/30/16 15:01 08/30/16 15:01 08/30/16 15:01 Intake and Output: 08/30/16 08/30/16 06:59 18:59 Intake Total 500 Output Total 3 Balance 500 -3 - Medications Medications: Current Medications Acetaminophen (Tylenol 325mg Tab) 650 mg PO Q6 PRN PRN Reason: Pain, severe (8-10) Albuterol/Ipratropium (Duoneb 3 Mg/0.5 Mg (3 Ml) Ud) 3 ml INH RQ6 [facility] Last Admin: 08/30/16 13:20 Dose: 3 ml Diphenhydramine HCl (Benadryl) 25 mg IVP HS PRN PRN Reason: Insomnia Enoxaparin Sodium (Lovenox) 40 mg SC DAILY [facility] Last Admin: 08/30/16 10:48 Dose: 40 mg Glipizide (Glucotrol) 10 mg PO BIDAC [facility] Last Admin: 08/30/16 16:30 Dose: 10 mg Guaifenesin (Mucinex La) 600 mg PO BID [facility] Last Admin: 08/30/16 17:38 Dose: 600 mg Insulin Aspart (Novolog) 25 unit SC AC [facility] Last Admin: 08/30/16 16:30 Dose: 25 unit Insulin Glargine (Lantus) 40 unit SC HS [facility] Insulin Human NPH (Novolin N) 20 unit SC QAM [facility] Last Admin: 08/29/16 09:24 Dose: 20 unit Insulin Human NPH (Novolin N) 40 unit SC HS [facility] Last Admin: 08/28/16 21:55 Dose: 40 unit Insulin Human Regular (Novolin R) 0 unit SC ACHS [facility] PRN Reason: Protocol Last Admin: 08/30/16 16:30 Dose: 4 unit Metformin HCl (Glucophage) 1,000 mg PO BIDCC [facility] Last Admin: 08/30/16 17:37 Dose: 1,000 mg Methylprednisolone (Solu-Medrol) 20 mg IVP Q12H [facility] Montelukast Sodium (Singulair) 10 mg PO HS [facility] Last Admin: 08/29/16 21:20 Dose: 10 mg Pantoprazole Sodium (Protonix Ec Tab) 40 mg PO DAILY [facility] Last Admin: 08/30/16 10:48 Dose: 40 mg Fluticasone/Salmeterol (Advair Diskus 500/50) 1 puff IH RQ12 [facility] Topiramate (Topamax) 25 mg PO BID [facility] Last Admin: 08/30/16 17:37 Dose: 25 mg - Labs Labs: 08/30/16 11:28 08/30/16 11:28 Attending/Attestation - Attestation I have personally seen and examined this patient.: Yes I have fully participated in the care of the patient.: Yes I have reviewed all pertinent clinical information, including history, physical exam and plan: Yes Notes (Text): Medical attending: Patient was seen and examined by me, agrees the above note by medical technologist chemistry. At this time the patient's blood sugars are somewhat the numbers improved his review of the Accu-Chek sugars his number his lowest was 240 his highest number was 404. At this time will be increased long-acting Lantus insulin, and also increase the AC meals insulin to 25 U Continue the topamax Breathing is improved so will decrease the solumedrol to BID thank you Payam Hackett
[2016-08-30] MEDS: (Lantus) Insulin Glargine, Recombinant SC SCH (22:17)
[2016-08-31] MEDS: MethylPREDNISolone 40 mg Vial IVP SCH ×2 (00:06→12:31)
[2016-08-31] MEDS: DiphenhydrAMINE 50 mg/ml Inj IVP PRN (01:01)
[2016-08-31] MEDS: Albuterol-Ipratrop 3 mg / 0.5 (3 ml) UD INH SCH ×4 (01:42→20:35)
[2016-08-31] MEDS: (Novolin R) Insulin Human Regular 100 units/ml vial SC SCH ×4 (07:30→22:00)
[2016-08-31] MEDS: (Novolog) Insulin Aspart, Recombinant 100 u/ml 10 ml vial SC SCH ×3 (07:30→16:30)
[2016-08-31] MEDS: Pantoprazole 40 mg EC Tab PO SCH (09:40)
[2016-08-31] MEDS: guaiFENesin 600 mg ER Tab PO SCH ×2 (09:40→17:41)
[2016-08-31] MEDS: Enoxaparin 40 mg Syringe SC SCH (09:41)
--- NOTE | 2016-08-31 14:15 | CP.PCM.PN ---
<Nila Holman - Last Filed: 08/31/16 16:29> Subjective - Date & Time of Evaluation Date of Evaluation: 08/31/16 Time of Evaluation: 08:00 - Subjective Subjective: PGY1- Medicine note- Dr. Hackett's service Patient seen and examined at bedside and in no acute distress. Patient woken from sleep and says he feels okay but can feel/ hear himself wheezing. Patient still has some headache. Patient denies chest pain, abdominal pain, nausea, vomiting, diarrhea, constipation. Objective - Vital Signs/Intake and Output Vital Signs (last 24 hours): Temp Pulse Resp BP Pulse Ox 97.4 F L 78 20 118/69 98 08/31/16 07:42 08/31/16 07:42 08/31/16 07:42 08/31/16 07:42 08/31/16 07:42 - Medications Medications: Current Medications Acetaminophen (Tylenol 325mg Tab) 650 mg PO Q6 PRN PRN Reason: Pain, severe (8-10) Albuterol/Ipratropium (Duoneb 3 Mg/0.5 Mg (3 Ml) Ud) 3 ml INH RQ6 [facility] Last Admin: 08/31/16 13:35 Dose: 3 ml Diphenhydramine HCl (Benadryl) 25 mg IVP HS PRN PRN Reason: Insomnia Last Admin: 08/31/16 01:01 Dose: 25 mg Enoxaparin Sodium (Lovenox) 40 mg SC DAILY [facility] Last Admin: 08/31/16 09:41 Dose: 40 mg Glipizide (Glucotrol) 10 mg PO BIDAC [facility] Last Admin: 08/31/16 09:30 Dose: 10 mg Guaifenesin (Mucinex La) 600 mg PO BID [facility] Last Admin: 08/31/16 09:40 Dose: 600 mg Insulin Aspart (Novolog) 25 unit SC AC [facility] Last Admin: 08/31/16 11:30 Dose: 25 unit Insulin Glargine (Lantus) 40 unit SC HS [facility] Last Admin: 08/30/16 22:17 Dose: 40 units Insulin Human NPH (Novolin N) 20 unit SC QAM [facility] Last Admin: 08/29/16 09:24 Dose: 20 unit Insulin Human NPH (Novolin N) 40 unit SC HS [facility] Last Admin: 08/28/16 21:55 Dose: 40 unit Insulin Human Regular (Novolin R) 0 unit SC ACHS [facility] PRN Reason: Protocol Last Admin: 08/31/16 11:30 Dose: 4 unit Metformin HCl (Glucophage) 1,000 mg PO BIDCC [facility] Last Admin: 08/31/16 08:00 Dose: 1,000 mg Methylprednisolone (Solu-Medrol) 20 mg IVP Q12H [facility] Last Admin: 08/31/16 12:31 Dose: 20 mg Montelukast Sodium (Singulair) 10 mg PO HS [facility] Last Admin: 08/30/16 22:17 Dose: 10 mg Pantoprazole Sodium (Protonix Ec Tab) 40 mg PO DAILY [facility] Last Admin: 08/31/16 09:40 Dose: 40 mg Fluticasone/Salmeterol (Advair Diskus 500/50) 1 puff IH RQ12 [facility] Topiramate (Topamax) 25 mg PO BID [facility] Last Admin: 08/31/16 09:39 Dose: 25 mg - Labs Labs: 08/30/16 11:28 08/30/16 11:28 - Constitutional Appears: Well, Non-toxic, No Acute Distress - Head Exam Head Exam: ATRAUMATIC, NORMAL INSPECTION, NORMOCEPHALIC - Eye Exam Eye Exam: EOMI, Normal appearance, PERRL - ENT Exam ENT Exam: Mucous Membranes Moist, Normal Exam - Neck Exam Neck Exam: Full ROM, Normal Inspection. absent: Lymphadenopathy - Respiratory Exam Respiratory Exam: Wheezes, NORMAL BREATHING PATTERN. absent: Rales, Rhonchi, Respiratory Distress, Stridor Additional comments: expiratory wheezing bilaterally - Cardiovascular Exam Cardiovascular Exam: REGULAR RHYTHM, RRR, +S1, +S2. absent: Gallop, Rubs, Murmur - GI/Abdominal Exam GI & Abdominal Exam: Soft, Normal Bowel Sounds. absent: Distended, Firm, Rigid , Tenderness - Extremities Exam Extremities Exam: Full ROM, Normal Capillary Refill, Normal Inspection. absent : Joint Swelling, Pedal Edema - Back Exam Back Exam: NORMAL INSPECTION - Neurological Exam Neurological Exam: Alert, Awake, Oriented x3 - Psychiatric Exam Psychiatric exam: Agitated, Normal Mood Additional comments: patient wanting to sleep, slightly agitated - Skin Skin Exam: Normal Color, Warm Assessment and Plan - Assessment and Plan (Free Text) Assessment: Assessment: 1. Uncontrolled COPD Given duonebs x1 and decadron inj in ED with symptom improvement SpO2 100% on room air Chest X-ray: no active disease Solumedrol stopped (08/31) Prednisone 5mg PO daily started Continue Duonebs 3ml INH q6h [facility] Advair 500/50 INH q12h Singulair 10mg PO HS Mucinex 600mg PO BID Patient continues to have mild expiratory wheezes which resolve after nebulizer treatment 08/29: Chest xray-no active disease f/u sputum culture 2. Uncontrolled Diabetes Mellitus 08/13/16 HgA1C 9.2 bs 307 on admission Glipizide 10mg PO BID Metformin 1000mg PO BID 08/30: changed medications to: Lantus 40 HS and Novolog 25 AC 08/31: steroids lowered, no change in medication Accuchecks low of 168 on 08/30, high of 404 on 08/29 Diabetic Diet Nutrition consult, help appreciated assistant loan processor ordered, help appreciated 3. Migraines Tylenol 650 mg PO Q6 PRN Patient to continue on Topamax 25 mg PO BID, which patient explains is helping According to note on previous visit: "Patient showed paper records and medical records were retrieved from [facility]: Head CT w/o contrast, CTA of Head and Neck, MRI brain without contrast, MRA head and neck all done on 07/22/16 at two hospitals [facility] and [facility]. He had these examinations done at both institutions on the same day. All results were negative." 4. Depression Denies SI/HI Consulted psychiatry- Dr Dozier- nessa f/u recommendations 5. 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 for homeless patient <Payam Hackett - Last Filed: 09/01/16 09:16> Objective - Vital Signs/Intake and Output Vital Signs (last 24 hours): Temp Pulse Resp BP Pulse Ox 98 F 84 20 118/77 98 08/31/16 15:15 09/01/16 08:13 09/01/16 08:13 09/01/16 08:13 09/01/16 08:13 Intake and Output: 09/01/16 09/01/16 06:59 18:59 Intake Total 820 Balance 820 - Medications Medications: Current Medications Acetaminophen (Tylenol 325mg Tab) 650 mg PO Q6 PRN PRN Reason: Pain, severe (8-10) Albuterol/Ipratropium (Duoneb 3 Mg/0.5 Mg (3 Ml) Ud) 3 ml INH RQ6 [facility] Last Admin: 09/01/16 01:32 Dose: Not Given Diphenhydramine HCl (Benadryl) 25 mg IVP HS PRN PRN Reason: Insomnia Last Admin: 09/01/16 00:58 Dose: 25 mg Enoxaparin Sodium (Lovenox) 40 mg SC DAILY [facility] Last Admin: 08/31/16 09:41 Dose: 40 mg Glipizide (Glucotrol) 10 mg PO BIDAC [facility] Last Admin: 08/31/16 16:30 Dose: 10 mg Guaifenesin (Mucinex La) 600 mg PO BID [facility] Last Admin: 08/31/16 17:41 Dose: 600 mg Insulin Aspart (Novolog) 25 unit SC AC [facility] Last Admin: 08/31/16 16:30 Dose: 25 unit Insulin Glargine (Lantus) 40 unit SC HS [facility] Last Admin: 08/31/16 21:41 Dose: 40 units Insulin Human NPH (Novolin N) 20 unit SC QAM [facility] Last Admin: 08/29/16 09:24 Dose: 20 unit Insulin Human NPH (Novolin N) 40 unit SC HS [facility] Last Admin: 08/28/16 21:55 Dose: 40 unit Insulin Human Regular (Novolin R) 0 unit SC ACHS [facility] PRN Reason: Protocol Last Admin: 08/31/16 22:00 Dose: Not Given Metformin HCl (Glucophage) 1,000 mg PO BIDCC [facility] Last Admin: 08/31/16 17:40 Dose: 1,000 mg Montelukast Sodium (Singulair) 10 mg PO HS [facility] Last Admin: 08/31/16 21:41 Dose: 10 mg Pantoprazole Sodium (Protonix Ec Tab) 40 mg PO DAILY [facility] Last Admin: 08/31/16 09:40 Dose: 40 mg Prednisone (Prednisone Tab) 5 mg PO DAILY [facility] Fluticasone/Salmeterol (Advair Diskus 500/50) 1 puff IH RQ12 [facility] Topiramate (Topamax) 25 mg PO BID [facility] Last Admin: 08/31/16 17:41 Dose: 25 mg - Labs Labs: 08/30/16 11:28 08/30/16 11:28 Attending/Attestation - Attestation I have personally seen and examined this patient.: Yes I have fully participated in the care of the patient.: Yes I have reviewed all pertinent clinical information, including history, physical exam and plan: Yes Notes (Text): 09/01/16 09:14 Medical attending: Patient was seen and examined by me, agrees the above note by medical chief technician. The patient's blood glucose is are much better than previously. As we mentioned before were decreasing the dose of prednisone that he's getting. Furthermore we' ve been adjusting his insulin as well I explained to the patient that he would be sent with a supply of insulin, as well as needles and syringes. As mentioned previously the patient is semi- homeless to almost completely homeless. And so he has a very difficult living situation at this time. Thank you very much, Payam Hackett
[2016-08-31 21:16] VITALS: TEMP 98
[2016-08-31] MEDS: (Lantus) Insulin Glargine, Recombinant SC SCH (21:41)
[2016-09-01] MEDS: DiphenhydrAMINE 50 mg/ml Inj IVP PRN (00:58)
[2016-09-01] MEDS: Albuterol-Ipratrop 3 mg / 0.5 (3 ml) UD INH SCH ×3 (01:32→13:11)
[2016-09-01] MEDS: Pantoprazole 40 mg EC Tab PO SCH (09:26)
[2016-09-01] MEDS: Enoxaparin 40 mg Syringe SC SCH ×2 (09:27→09:28)
[2016-09-01] MEDS: guaiFENesin 600 mg ER Tab PO SCH (09:39)
[2016-09-01] MEDS: (Novolin R) Insulin Human Regular 100 units/ml vial SC SCH ×2 (09:39→11:59)
[2016-09-01] MEDS: (Novolog) Insulin Aspart, Recombinant 100 u/ml 10 ml vial SC SCH ×2 (09:40→12:45)
[2016-09-01 10:30] LABS: BASO # 0.1 K/uL (0.0-0.2); BASO % 1.2 % (0.0-2.0); EOS % 0.4 % (0.0-4.0); LYMPH # 2.6 K/uL (1.0-4.3); LYMPH % 29.8 % (20.0-40.0); MEAN CELL VOLUME 95.8 fL (80.0-94.0); MEAN CORPUSCULAR HEMOGLOBIN 31.7 pg (27.0-31.0); MEAN PLATELET VOLUME 7.9 fL (7.2-11.7); MONO # 0.8 K/uL (0.0-0.8); NEUT # 5.3 K/uL (1.8-7.0); NEUT % 59.6 % (50.0-75.0); RBC 4.74 Mil/uL (4.40-5.90); RED CELL DISTRIBUTION WIDTH 13.2 % (11.5-14.5); WHITE BLOOD COUNT 8.8 K/uL (4.8-10.8)
[2016-09-01 10:58] LABS: ALBUMIN 3.2 g/dL (3.5-5.0)
[2016-09-01 11:01] LABS: ALB/GLOB RATIO 1.3 (1.0-2.1); ALT/SGPT 21 U/L (21-72); AST/SGOT 13 U/L (17-59); BLOOD UREA NITROGEN 32 mg/dL (9-20); GFR AFRICAN-AMERICAN > 60; GFR NON-AFRICAN AMERICAN > 60
[2016-09-01 11:02] LABS: CALCIUM 8.7 mg/dl (8.6-10.4)
[2016-09-01 16:31] VITALS: BP 122/82; PULSE 107; O2SAT 97
--- NOTE | 2016-09-01 17:56 | CP.PCM.DIS ---
<Nila Holman - Last Filed: 09/01/16 18:01> Provider - Provider Date of Admission: 08/25/16 17:18 Attending physician: Javier Finley MD Primary care physician: none Time Spent in preparation of Discharge (in minutes): 45 Diagnosis - Discharge Diagnosis (1) COPD exacerbation Status: Acute Comment: patient weaning off of steroids. continue to use inhaler (2) Uncontrolled diabetes mellitus Status: Acute Comment: patient to change his diet and be more compliant with medications and insulin (3) Headache Status: Acute Priority: Medium Comment: Continue topamax. Hospital Course - Lab Results Lab Results: Micro Results 09/01/16 07:30 Sputum Gram Stain - Final Most Recent Lab Values WBC 8.8 K/uL (4.8-10.8) 09/01/16 10:26 RBC 4.74 Mil/uL (4.40-5.90) 09/01/16 10:26 Hgb 15.0 g/dL (12.0-18.0) 09/01/16 10:26 Hct 45.4 % (35.0-51.0) 09/01/16 10:26 MCV 95.8 fL (80.0-94.0) H 09/01/16 10:26 MCH 31.7 pg (27.0-31.0) H 09/01/16 10:26 MCHC 33.0 g/dL (33.0-37.0) 09/01/16 10:26 RDW 13.2 % (11.5-14.5) 09/01/16 10:26 Plt Count 201 K/uL (130-400) 09/01/16 10:26 MPV 7.9 fL (7.2-11.7) 09/01/16 10:26 Neut % (Auto) 59.6 % (50.0-75.0) 09/01/16 10:26 Lymph % (Auto) 29.8 % (20.0-40.0) 09/01/16 10:26 Rich % (Auto) 9.0 % (0.0-10.0) 09/01/16 10:26 Eos % (Auto) 0.4 % (0.0-4.0) 09/01/16 10:26 Baso % (Auto) 1.2 % (0.0-2.0) 09/01/16 10:26 Neut # 5.3 K/uL (1.8-7.0) 09/01/16 10:26 Lymph # 2.6 K/uL (1.0-4.3) 09/01/16 10:26 Rich # 0.8 K/uL (0.0-0.8) 09/01/16 10:26 Eos # 0.0 K/uL (0.0-0.7) 09/01/16 10:26 Baso # 0.1 K/uL (0.0-0.2) 09/01/16 10:26 Neutrophils % (Manual) 81 % (50-75) H 08/29/16 11:50 Band Neutrophils % 4 % (0-2) H 08/29/16 11:50 Lymphocytes % (Manual) 10 % (20-40) L 08/29/16 11:50 Monocytes % (Manual) 5 % (0-10) 08/29/16 11:50 Platelet Estimate Normal (NORMAL) 08/29/16 11:50 RBC Morphology Normal 08/29/16 11:50 Sodium 134 mmol/L (132-148) 09/01/16 10:26 Potassium 3.6 mmol/L (3.6-5.2) 09/01/16 10:26 Chloride 100 mmol/L (98-107) 09/01/16 10:26 Carbon Dioxide 24 mmol/L (22-30) 09/01/16 10:26 Anion Gap 15 (10-20) 09/01/16 10:26 BUN 32 mg/dL (9-20) H 09/01/16 10:26 Creatinine 0.8 MG/DL (0.8-1.5) 09/01/16 10:26 Est GFR ( Amer) > 60 09/01/16 10:26 Est GFR (Non-Af Amer) > 60 09/01/16 10:26 POC Glucose (mg/dL) 209 mg/dL (65-110) H 09/01/16 16:16 Random Glucose 265 mg/dL (75-110) H 09/01/16 10:26 Calcium 8.7 mg/dl (8.6-10.4) 09/01/16 10:26 Phosphorus 3.9 mg/dL (2.5-4.5) 09/01/16 10:26 Magnesium 2.0 mg/dL (1.6-2.3) 09/01/16 10:26 Total Bilirubin 0.5 mg/dL (0.2-1.3) 09/01/16 10:26 AST 13 U/L (17-59) L 09/01/16 10:26 ALT 21 U/L (21-72) D 09/01/16 10:26 Alkaline Phosphatase 89 U/L (38-126) 09/01/16 10:26 Total Protein 5.8 g/dL (6.3-8.3) L 09/01/16 10:26 Albumin 3.2 g/dL (3.5-5.0) L 09/01/16 10:26 Globulin 2.5 gm/dL (2.2-3.9) 09/01/16 10:26 Albumin/Globulin Ratio 1.3 (1.0-2.1) 09/01/16 10:26 - Hospital Course Hospital Course: "CC: "I feel like I can't breath all the time" HPI: Patient is a 41 year old male with PMHx of COPD, DM and migraines who presents with complaint of shortness of breath. The patient had an appointment at the [facility] and walked 2 hours this morning. When patient arrived at the [facility] he was sent up to ED for evaluation of respiratory distress. Patient has had multiple hospital admissions for COPD exacerbation since 05/2016. Patient complains that his COPD has been uncontrolled and that he is chronically wheezing and coughing up sputum. Patient states that his COPD improves when he is in the hospital but once he is discharged and the steroids wear off his breathing becomes worse. Dyspnea is worse on exertion. Patient is not using inhaler at home at this time. The patient's diabetes was found to be uncontrolled and the patient was started on insulin per dinkey locomotive operator on one of his recent admissions. The patient states that he has been discharged with scripts for his medications but that he has been unable to fill them due to their expensive cost. Patient has been uninsured and only recently obtained [facility]. Patient is tearful during his exam and expresses fear and anxiety about his medical condition. Patient states that he is afraid of losing his vision from his uncontrolled diabetes and is afraid of depending on home oxygen eventually due to his COPD. Patient denies suicidal ideations at this time. Patient complains about neuropathic pain in his bilateral LE. Patient also complains of migraine during examination with photophobia. Patient 's head pain is located frontal, rated 10/10. Denies fever, chills, nausea, vomiting, focal weakness, generalized weakness, palpitations, abdominal pain, diarrhea, back pain, change in vision, dizziness, orthopnea, and swelling. The patient was last discharged from the hospital on 08/19/16. Patient has not been on medication since discharge." Patient given duonebs x1 and decadron inj in ED with symptom improvement. SpO2 was 100% on room air. Chest X-ray showed no active disease. Advair 500/50 INH q12h, Singulair 10mg PO HS, Mucinex 600mg PO BID were started. Patient was admitted to telemetry. Blood sugar was 307 on admission. Glipizide 10mg PO BID, Metformin 1000mg PO BID, Humulin 20u SC AM, 40u SC HS, Humalog 20u TID with meals, and accuchecks started. Fioricet was started for the migraines. Patient has history of depression and denied homicidal or suicidal ideations. Patient put on SCDs, Lovenox, and Protonix for prophylaxis. While in the hospital patient was aggravated by the diabetic food. He wanted to leave and eat other food many times. Dr. Luna, neurology consulted for the headache and started patient on topamax 25 mg BID. He suggested outpatient follow up. Patient's headaches were improved with the topomax. Patient started on solumedrol 40 mg IVP q8h for COPD which he was slowly weaned off of and put on Prednisone 5 mg daily. Patient's wheezing decreased daily. Patient's diabetes medications were increased and blood sugars were more controlled. Patient explained the importance of using insulin and changing his diet. Patient was cleared for discharge as per Dr. Hackett. Patient should take the following medications: Lantus 40 U SC QHS Novolog 25 U SC AC Metformin 1000mg PO BID Glipizide 10 mg PO BID Lisinopril 2.5 mg Daily Topamax 25 mg PO BID Prednisone 5mg daily for 5 days Flovent 110mcg BID Patient should use glucometer with test strips and lancets before meals and before bed. Patient should return to ED immediately if symptoms return or worsen. This is a summary of the hospital course. Please see chart for full details. Discharge Exam - Head Exam Head Exam: ATRAUMATIC, NORMAL INSPECTION, NORMOCEPHALIC - Eye Exam Eye Exam: EOMI, Normal appearance, PERRL - ENT Exam ENT Exam: Mucous Membranes Moist - Neck Exam Neck exam: Full Rom, Normal Inspection - Respiratory Exam Respiratory Exam: Wheezes, NORMAL BREATHING PATTERN. absent: Rales, Rhonchi, Respiratory Distress, Stridor Additional comments: minimal expiratory wheezing - Cardiovascular Exam Cardiovascular Exam: REGULAR RHYTHM, RRR. absent: Gallop, Irregular Rhythm, Rubs - GI/Abdominal Exam GI & Abdominal Exam: Normal Bowel Sounds. absent: Distended, Firm, Guarding - Extremities Exam Extremities exam: full ROM, normal inspection - Back Exam Back exam: FULL ROM, NORMAL INSPECTION. absent: rash noted - Neurological Exam Neurological exam: Alert, Oriented x3 - Psychiatric Exam Psychiatric exam: Normal Affect, Normal Mood - Skin Skin Exam: Intact, Normal Color, Warm Discharge Plan - Discharge Medications Prescriptions: Fluticasone Propionate [Flovent Diskus] 110 mcg IH BID #1 blst.w.dev GlipiZIDE [Glucotrol] 10 mg PO BIDAC #60 tab Insulin Aspart, Recombinant [Novolog] 25 unit SC AC #1 vial Insulin Glargine, Recombina [Lantus] 40 unit SC HS #1 vial Lancets/Blood Glucose Strips [Fora [id number] Strp-Lnct] 1 each ACHS # 120 combo..pkg Lisinopril 2.5 mg PO BID #60 tablet MetFORMIN [glucoPHAGE] 1,000 mg PO BIDWM #60 tab predniSONE [predniSONE Tab] 5 mg PO DAILY #5 tab Topiramate [Topamax] 25 mg PO BID #60 tab - Follow Up Plan Condition: FAIR Disposition: HOME/ ROUTINE Instructions: Lisinopril (By mouth), Prednisone (By mouth), Metformin (By mouth ), Fluticasone (By breathing), Topiramate (By mouth), Insulin Aspart, Recombinant (By injection), Insulin Glargine (By injection), Migraine Headache ( DC), COPD (Chronic Obstructive Pulmonary Disease) (DC), Meal Planning with Diabetes Exchanges (DC) Additional Instructions: Patient stable for discharge as per Dr. Hackett. Patient should take the medications listed below as prescribed: Lantus 40 U SC QHS Novolog 25 U SC AC Metformin 1000mg PO BID Glipizide 10 mg PO BID Lisinopril 2.5 mg Daily Topamax 25 mg PO BID Prednisone 5mg daily for 5 days Flovent 110mcg BID Please use glucometer with test strips and lancets before meals and before bed. Patient should follow up with [facility] within one week of discharge. Patient should follow up with Dr. uLna (neurology) within one week of discharge. Patient should return to ED immediately if symptoms return or worsen. Instructions discussed with patient who understood and agreed. Referrals: [facility] [Provider Group] Gigi Luna MD [Staff Provider] - <Payam Hackett - Last Filed: 09/02/16 08:26> Provider - Provider Date of Admission: 08/25/16 17:18 Attending physician: Javier Finley MD Hospital Course - Lab Results Lab Results: Micro Results 09/01/16 07:30 Sputum Gram Stain - Final Most Recent Lab Values WBC 8.8 K/uL (4.8-10.8) 09/01/16 10:26 RBC 4.74 Mil/uL (4.40-5.90) 09/01/16 10:26 Hgb 15.0 g/dL (12.0-18.0) 09/01/16 10:26 Hct 45.4 % (35.0-51.0) 09/01/16 10:26 MCV 95.8 fL (80.0-94.0) H 09/01/16 10:26 MCH 31.7 pg (27.0-31.0) H 09/01/16 10:26 MCHC 33.0 g/dL (33.0-37.0) 09/01/16 10:26 RDW 13.2 % (11.5-14.5) 09/01/16 10:26 Plt Count 201 K/uL (130-400) 09/01/16 10:26 MPV 7.9 fL (7.2-11.7) 09/01/16 10:26 Neut % (Auto) 59.6 % (50.0-75.0) 09/01/16 10:26 Lymph % (Auto) 29.8 % (20.0-40.0) 09/01/16 10:26 Rich % (Auto) 9.0 % (0.0-10.0) 09/01/16 10:26 Eos % (Auto) 0.4 % (0.0-4.0) 09/01/16 10:26 Baso % (Auto) 1.2 % (0.0-2.0) 09/01/16 10:26 Neut # 5.3 K/uL (1.8-7.0) 09/01/16 10:26 Lymph # 2.6 K/uL (1.0-4.3) 09/01/16 10: Rich # 0.8 K/uL (0.0-0.8) 09/01/16 10:26 Eos # 0.0 K/uL (0.0-0.7) 09/01/16 10: Baso # 0.1 K/uL (0.0-0.2) 09/01/16 10:26 Neutrophils % (Manual) 81 % (50-75) H 08/29/16 11:50 Band Neutrophils % 4 % (0-2) H 08/29/16 11:50 Lymphocytes % (Manual) 10 % (20-40) L 08/29/16 11:50 Monocytes % (Manual) 5 % (0-10) 08/29/16 11:50 Platelet Estimate Normal (NORMAL) 08/29/16 11:50 RBC Morphology Normal 08/29/16 11:50 Sodium 134 mmol/L (132-148) 09/01/16 10:26 Potassium 3.6 mmol/L (3.6-5.2) 09/01/16 10:26 Chloride 100 mmol/L (98-107) 09/01/16 10:26 Carbon Dioxide 24 mmol/L (22-30) 09/01/16 10:26 Anion Gap 15 (10-20) 09/01/16 10:26 BUN 32 mg/dL (9-20) H 09/01/16 10:26 Creatinine 0.8 MG/DL (0.8-1.5) 09/01/16 10:26 Est GFR ( Amer) > 60 09/01/16 10:26 Est GFR (Non-Af Amer) > 60 09/01/16 10:26 POC Glucose (mg/dL) 209 mg/dL (65-110) H 09/01/16 16:16 Random Glucose 265 mg/dL (75-110) H 09/01/16 10:26 Calcium 8.7 mg/dl (8.6-10.4) 09/01/16 10:26 Phosphorus 3.9 mg/dL (2.5-4.5) 09/01/16 10:26 Magnesium 2.0 mg/dL (1.6-2.3) 09/01/16 10:26 Total Bilirubin 0.5 mg/dL (0.2-1.3) 09/01/16 10:26 AST 13 U/L (17-59) L 09/01/16 10:26 ALT 21 U/L (21-72) D 09/01/16 10:26 Alkaline Phosphatase 89 U/L (38-126) 09/01/16 10:26 Total Protein 5.8 g/dL (6.3-8.3) L 09/01/16 10:26 Albumin 3.2 g/dL (3.5-5.0) L 09/01/16 10:26 Globulin 2.5 gm/dL (2.2-3.9) 09/01/16 10:26 Albumin/Globulin Ratio 1.3 (1.0-2.1) 09/01/16 10:26 Attending/Attestation - Attestation I have personally seen and examined this patient.: Yes I have fully participated in the care of the patient.: Yes I have reviewed all pertinent clinical information, including history, physical exam and plan: Yes Notes (Text): 09/02/16 08:23 Medical attending: Patient was seen and examined by me, agrees the above note by nuclear medicine medical director. The patient was breathing much better, he still had a headache however he explains to us that he was very tolerable with the medication he was getting. It needs to be noted that we gave him a month's supply of medication including Lantus, Novolin, a glucometer, test strips, and lancets. He needs to be on ISAIAS inhibitor as well. And he also had a supply of Topamax given to him Again we gave him a physical supply of medication to go with. We did this because from what I understand the patient's living situation is semi-homeless. He doesn't have any family members or friends to live with at this time. When I asked him if he was given go to a senior care he said that he would figure this out himself Furthermore during this hospitalization he's had several code echo was called requiring security to find him. Sometimes he'll try to wander out of the hospital the reasons of which are not entirely clear. With regards to his difficulty breathing he was sent with tablets of prednisone as well as a Flovent inhaler. My concern is the patient may try to go to another hospital or come back to this hospital again per review of the medical record when he was last discharged immediately went to another hospital. Thank you very much Payam Hackett
== END 2016-09-01 17:00 | disposition home or self-care (01) | DRG 88 ==
LOC: C.ER 10:15 → C.9E 13:40 → OBSVTOIN 17:18 → C.6T 18:06 → C.3T 08-28 22:47
PROVIDERS: ADMIT Internal Medicine; ATTEND Internal Medicine
DX: J44.1 Chronic obstructive pulmonary disease with (acute) exacerbation (principal); E11.65 Type 2 diabetes mellitus with hyperglycemia; I10 Essential (primary) hypertension; F41.9 Anxiety disorder, unspecified; G43.909 Migraine, unspecified, not intractable, without status migrainosus; Z59.0 Homelessness; F12.90 Cannabis use, unspecified, uncomplicated; Z79.4 Long term (current) use of insulin; F32.89 Other specified depressive episodes

== ENCOUNTER 2016-11-03 20:17 | Emergency (ER) | payer OTHER ==
[2016-11-03 20:17] VITALS: BMI 33.5
[2016-11-03] MEDS ORDERED: Albuterol-Ipratrop 3 mg / 0.5 (3 ml) UD ONE ×3 (20:31→22:28)
[2016-11-03] MEDS ORDERED: Sodium Chloride 0.9% 1,000 ML IV ONE ×2 (20:36→22:43)
[2016-11-03] MEDS ORDERED: Albuterol-Ipratrop 3 mg / 0.5 (3 ml) UD INH STA ×3 (20:37→22:44)
--- NOTE | 2016-11-03 20:50 | C.PDOC ---
History Of Present Illness 41 year old male with a Hx of COPD and diabetes who presents to the ER with a complaint of SOB. Denies chest pain, palpitations, nausea, or vomiting. Chief Complaint (Nursing): Shortness Of Breath History Per: Patient History/Exam Limitations: no limitations Onset/Duration Of Symptoms: Hrs Current Symptoms Are (Timing): Still Present Initiating Event: Other (Not known) Current Respiratory Medications: See Home Med List Past Medical History Reviewed: Historical Data, Nursing Documentation, Vital Signs Vital Signs: Last Vital Signs Temp 98.3 F 11/04/16 01:29 Pulse 97 H 11/04/16 01:29 Resp 16 11/04/16 01:29 BP 148/92 H 11/04/16 01:29 Pulse Ox 97 11/04/16 01:29 - Medical History PMH: Asthma, COPD, Diabetes (type II), HTN, Migraine Surgical History: No Surg Hx - [facility] Procedures INTRODUCE OF OTH THERAP SUBST INTO RESP TRACT, VIA OPENING (08/14/16) OTHER MISC PROCEDURE (12/21/99) TETANUS TOXOID ADMINIST (12/16/06) Family History: States: Unknown Family Hx - Social History Hx Tobacco Use: Yes Hx Alcohol Use: Yes (denies) Hx Substance Use: No (denies) - Immunization History Hx Tetanus Toxoid Vaccination: No Hx Influenza Vaccination: No Hx Pneumococcal Vaccination: No Review Of Systems Constitutional: Negative for: Fever, Chills Cardiovascular: Negative for: Chest Pain, Palpitations Respiratory: Positive for: Shortness of Breath Gastrointestinal: Negative for: Nausea, Vomiting Physical Exam - Physical Exam Appears: Non-toxic, Other (Mildly dyspenic) Skin: Normal Color, Warm, Dry Head: Atraumatic, Normacephalic Oral Mucosa: Moist Chest: Symmetrical, No Tenderness Cardiovascular: Rhythm Regular, No Murmur Respiratory: No Rales, Rhonchi (Bilateral), Wheezing (Bilateral) Gastrointestinal/Abdominal: Soft, No Tenderness Neurological/Psych: Oriented x3, Normal Speech, Normal Cognition ED Course And Treatment - Laboratory Results Result Diagrams: 11/03/16 20:49 11/03/16 20:49 O2 Sat by Pulse Oximetry: 96 (Room air) Pulse Ox Interpretation: Normal Progress Note: EKG, blood work, and CXR ordered. Solumedrol, IV fluids, and nebulizer treatment administered. Disposition Counseled Patient/Family Regarding: Diagnosis - Disposition Referrals: [facility] [Outside] Disposition: HOME/ ROUTINE Disposition Time: 01:16 Condition: STABLE Prescriptions: Albuterol HFA [Ventolin HFA 90 mcg/actuation (8 g)] 2 puff IH [id number] #1 puff Fluticasone Propionate [Flovent Hfa] 2 puff IH BID #1 inh Insulin Aspart, Recombinant [Novolog] 25 unit SC AC #1 vial Insulin Glargine, Recombina [Lantus] 40 unit SC HS #1 vial Lisinopril 2.5 mg PO BID #60 tablet MetFORMIN [glucoPHAGE] 1,000 mg PO BID #60 tab Instructions: Diabetes Mellitus Type 1 in Adults (ED), COPD (Chronic Obstructive Pulmonary Disease) (GEN) Forms: [employer] (Nauruan) - POA Present On Arrival: None - Clinical Impression Clinical Impression: COPD (chronic obstructive pulmonary disease) - Scribe Statement The provider has reviewed the documentation as recorded by the Scribe Nolan Harrison All medical record entries made by the Peteibluis were at my direction and personally dictated by me. I have reviewed the chart and agree that the record accurately reflects my personal performance of the history, physical exam, medical decision making, and the department course for this patient. I have also personally directed, reviewed, and agree with the discharge instructions and disposition.
[2016-11-03] MEDS ORDERED: Sodium Chloride 0.9% 1,000 ML ONE (20:51)
[2016-11-03 20:55] LABS: BASO # 0.1 K/uL (0.0-0.2); BASO % 0.7 % (0.0-2.0); EOS # 0.1 K/uL (0.0-0.7); EOS % 0.7 % (0.0-4.0); HEMATOCRIT 47.8 % (35.0-51.0); LYMPH # 2.3 K/uL (1.0-4.3); LYMPH % 23.7 % (20.0-40.0); MEAN CELL VOLUME 93.9 fL (80.0-94.0); MEAN CORPUSCULAR HGB CONC 35.1 g/dL (33.0-37.0); MEAN PLATELET VOLUME 7.2 fL (7.2-11.7); MONO # 0.9 K/uL (0.0-0.8); MONO % 9.4 % (0.0-10.0); NRBC % 0.1 % (0.0-2.0); RED CELL DISTRIBUTION WIDTH 13.2 % (11.5-14.5); WHITE BLOOD COUNT 9.6 K/uL (4.8-10.8)
[2016-11-03 21:03] LABS: CHLORIDE 100 mmol/L (98-107)
[2016-11-03] MEDS ORDERED: (Novolin R) Insulin Human Regular 100 units/ml vial SC ONE (21:03)
[2016-11-03 21:04] LABS: POTASSIUM 4.1 mmol/L (3.6-5.2); SODIUM 138 mmol/L (132-148)
[2016-11-03 21:06] LABS: ALB/GLOB RATIO 1.5 (1.0-2.1); AST/SGOT 23 U/L (17-59); BILIRUBIN,TOTAL 0.8 mg/dL (0.2-1.3); CARBON DIOXIDE 24 mmol/L (22-30); GFR AFRICAN-AMERICAN > 60; TOTAL PROTEIN 7.5 g/dL (6.3-8.3)
[2016-11-03 21:07] LABS: ALKALINE PHOSPHATASE 88 U/L (38-126); ALT/SGPT 33 U/L (21-72); BLOOD UREA NITROGEN 11 mg/dL (9-20); CALCIUM 9.1 mg/dl (8.6-10.4); GLUCOSE,RANDOM 300 mg/dL (75-110)
[2016-11-03] MEDS ORDERED: (Novolin R) Insulin Human Regular 100 units/ml vial ONE ×2 (21:07→22:31)
[2016-11-03] MEDS ORDERED: (Novolin R) Insulin Human Regular 100 units/ml vial IV ONE (22:30)
[2016-11-03] MEDS ORDERED: (Lantus) Insulin Glargine, Recombinant SC STA (23:00)
[2016-11-03] MEDS ORDERED: (Lantus) Insulin Glargine, Recombinant SC ONE (23:16)
[2016-11-04] MEDS ORDERED: (Novolin R) Insulin Human Regular 100 units/ml vial SC ONE (00:15)
[2016-11-04] MEDS ORDERED: (Novolin R) Insulin Human Regular 100 units/ml vial ONE (00:24)
[2016-11-04 01:31] VITALS: BP 148/92; PULSE 97; RESP 16; TEMP 98.3
[2016-11-04 02:28] VITALS: O2SAT 96
--- NOTE | 2016-11-04 11:31 | RAD ---
HISTORY: SOB. wheezing COMPARISON: Frontal chest radiograph 08/29/2016. TECHNIQUE: Chest PA and lateral FINDINGS: LUNGS: No active pulmonary disease. PLEURA: No significant pleural effusion identified. No pneumothorax apparent. CARDIOVASCULAR: Normal. OSSEOUS STRUCTURES: No significant abnormalities. VISUALIZED UPPER ABDOMEN: Normal. OTHER FINDINGS: None. IMPRESSION: No acute cardiopulmonary disease or significant interval change identified.
--- NOTE | 2016-11-17 20:41 | CARD ---
APPROVED REPORT EKG Measurement Heart [id number] <Conclusion> Sinus tachycardia Anterior infarct, age undetermined Abnormal ECG
== END 2016-11-04 01:31 | disposition home or self-care (01) ==
LOC: C.ER 20:17
DX: J44.9 Chronic obstructive pulmonary disease, unspecified (principal); E11.9 Type 2 diabetes mellitus without complications; I10 Essential (primary) hypertension; F17.210 Nicotine dependence, cigarettes, uncomplicated
CPT/HCPCS: 71020; 80053; 82948; 83880; 84484; 85025; 85378; 94150; 94640; 96361; 96374; 99285; J2930; J7040